=== PATIENT | female | born 1970 | race Caucasian/White ===

== ENCOUNTER → 2016-05-19 | Outpatient (CLI) | payer MEDICAID | LOC: FIMAGING 09:59 | DX: Z12.31 Encounter for screening mammogram for malignant neoplasm of breast (principal); Z80.3 Family history of malignant neoplasm of breast | CPT/HCPCS: G0202 ==

== ENCOUNTER → 2016-09-01 | Outpatient (CLI) | payer MEDICAID | LOC: FIMAGING 08:46 | PROVIDERS: ATTEND Internal Medicine | DX: R92.8 Other abnormal and inconclusive findings on diagnostic imaging of breast (principal) | CPT/HCPCS: G0206 ==

== ENCOUNTER 2016-09-17 09:35 | Emergency (ER) | payer MEDICAID ==
--- NOTE | 2016-09-17 09:48 | EDPHY ---
H & P HPI/ROS: CHIEF COMPLAINT: Two seizures this morning. HISTORY OF PRESENT ILLNESS: This patient is a 46 year old female with history of seizure disorder arriving via EMS from [place] following two seizures this morning. She states she has been vomiting for the last two weeks, 3-4 times daily, and describes her emesis as "coffee-ground". She reports she has lost about 15k pounds in the last month , and thinks she may have vomited up doses of her seizure medication (Keppra, 500mg tid). She endorses abdominal pain. She states she has a referral to GI with an appointment scheduled for October 07, 2016. She reports she was diagnosed with pneumonia recently by chest x-ray, and has been taking Levaquin. She describes pain on deep inspiration and subjective fever. Today, she remembers throwing up, and then being found by nursing staff following a seizure. Neither of this morning's seizures were witnessed. No shortness of breath, diarrhea, blood in her stool, or other associated symptoms. REVIEW OF SYSTEMS: A ten point review of systems was performed and is negative with the exception of the items mentioned in the HPI. - Medical/Surgical History PMH: 1. Seizure disorder diagnosed 2012 (Keppra) 2. Depression 3. Migraine headaches 4. Recurrent UTIs 5. Nephrolithiasis 6. Ulcers (Protonix) 7. Pneumonia Hx Asthma: No Hx Chronic Respiratory Disease: No Hx Diabetes: No Hx Cardiac Disease: No Hx Renal Disease: No Hx Cirrhosis: No Hx Alcoholism: No Hx HIV/AIDS: No Hx Splenectomy or Spleen Trauma: No Other PMH: epilepsy-2013; depression, gerd, migraines, gastric ulcer status post resection, anxiety, kidney stones, anemia;restless legs;S/P Norah;S/P Appy - Social History Smoking Status: Current every day smoker Drug Use: None Additional Social History: Living at [place] since December. - Physical Exam Exam: General Appearance: Alert. Vital signs reviewed. Blood pressure 91/67. Head: Normocephalic atraumatic. Eyes: Pupils equal and round, no conjunctival injection, no discharge. Anicteric. ENT, Mouth: Mucous membranes are moist, no oropharyngeal erythema or edema. No tongue injury. Neck: No lymphadenopathy, supple. Respiratory: Coarse wheezes. Cardiovascular: Regular rate and rhythm; no murmur, rub, or gallop. Gastrointestinal: Midepigastric tenderness. Abdomen is soft, no masses or organomegaly, bowel sounds normal. Skin: Warm and dry, no rashes on exposed skin, normal color. Back: Nontender to palpation over the thoracolumbar spine. No CVAT. Extremities: No long bone tenderness. Neurological: Alert and oriented. Moving all four extremities easily and equally. VIVKE. EOMI. Facial expressions symmetric. Tongue midline. Strength 5/5 in all major motor groups. Sensation intact to light touch over all 4 extremities. Psychiatric: Normal affect. Constitutional: Initial Vital Signs Temperature (C) 36.6 C 09/17/16 09:50 Heart Rate 80 09/17/16 09:50 Respiratory Rate 16 09/17/16 09:50 Blood Pressure 91/67 L 09/17/16 09:50 O2 Sat (%) 92 09/17/16 09:50 O2 Delivery Mode Room Air Allergies/Adverse Reactions: heparin Allergy (Verified 03/07/16 13:54) affects my platelets iodine Allergy (Verified 03/07/16 13:54) oral contrast Allergy (Uncoded 12/21/15 18:39) Home Medications: Medication Instructions Recorded Pregabalin [Lyrica 50mg (*)] 200 mg PO TID 12/14/15 QUEtiapine FUMARATE [Seroquel 300 mg PO TID 12/14/15 300mg (*)] rOPINIRole HCL [Requip 2mg (*)] 2 mg PO HS 12/14/15 levETIRAcetam [Keppra 500 mg (*)] 500 mg PO TID 12/16/15 ALPRAZolam [Xanax 1 MG (*)] 2 mg PO BID PRN 12/17/15 Acetaminophen/ASA/Caffeine 1 each PO DAILY PRN 12/17/15 [Excedrin Tablet (*)] Multivitamins [Multivitamin (*)] 1 each PO DAILY 12/17/15 traZODone [traZODONE 100MG (*)] 200 - 400 mg PO HS PRN 12/17/15 Acetaminophen [Tylenol 325mg (*)] 650 mg PO Q4HRS PRN #0 tab 01/02/16 Amoxicillin Trihydrate [Amoxil] 1,000 mg PO BID #11 cap 01/02/16 Clarithromycin [Biaxin (*)] 500 mg PO BID #0 tab 01/02/16 Dicyclomine [Bentyl 10 MG (*)] 10 mg PO BID #0 cap 01/02/16 Ibuprofen [Motrin (*)] 400 mg PO Q6HRS PRN #0 tab 01/02/16 Lidocaine 5% [Lidoderm 5% Patch 1 ea TD DAILY #0 patch 01/02/16 (*)] Magnesium Hydroxide [Milk of 30 ml PO DAILY PRN #0 udcup 01/02/16 Magnesia (*)] Pantoprazole Sodium [Protonix 40mg 40 mg PO BID #0 tab 01/02/16 (*)] Polyethylene Glycol 3350 [Miralax 17 gm PO BID #0 pkt 01/02/16 17 gm (*)] Polyethylene Glycol 3350 [Miralax 17 gm PO DAILY PRN #0 pkt 01/02/16 17 gm (*)] Promethazine HCl [Phenergan 25mg 6.25 mg PO Q6HRS PRN #0 tab 01/02/16 (*)] Sennosides/Docusate Sodium 1 - 2 tab PO BID #0 tab 01/02/16 [Senokot-S] guaiFENesin [Mucinex 600 MG (*)] 600 mg PO BID PRN #0 tab.er 01/02/16 Medical Decision Making - Diagnostics Imaging: I viewed and interpreted images myself ED Course/Re-evaluation: This patient is a 46 year old female presenting following two self reported seizures this morning, with two week history of daily nausea and vomiting. Physical exam reveals bilateral coarse wheezes and midepigastric tenderness. The patient has recently been treated for pneumonia with Levaquin, and has a reported history of chronic pneumonia. Plan for chest x-ray to assess pneumonia status. Plan for labs including CBC and BMP. Administered DuoNeb treatment and 12.5mg IV Phenergan for symptom relief. Reassessed patient. She is complaining of pain to her right low back. Plan to administer Lidocaine patch for symptom relief. She has been serially evaluated. Prior to discharge, at 12:40 p.m., she was re- evaluated. Her lungs are clear at this time. Chest x-ray does not show pneumonia or any other acute abnormality. She has not had seizure activity here in the emergency department. The IV that was administering her Keppra has infiltrated. She would like to return to [place] and feels that she can take her oral Keppra. Based upon history, it is not known to me whether not she actually had a seizure this morning. There was no witness. I do not find tongue injury or any other injury that might be related to seizure activity or falling. No laboratory abnormalities that would cause seizure. I feel that she can safely return to [place]. Differential Diagnosis: Seizure including but not limited to electrolyte abnormality, alcohol withdrawal , medication noncompliance, head injury, and breakthrough seizure. - Data Points Laboratory Results: Laboratory Results 09/17/16 10:35 09/17/16 10:35 Medications Given: Discontinued Medications Albuterol/Ipratropium (Duoneb) 3 ml IH EDNOW ONE Stop: 09/17/16 10:11 Last Admin: 09/17/16 10:36 Dose: 3 ml Levetiracetam 500 mg/ Sodium (Chloride) 105 mls @ 420 mls/hr IV EDNOW ONE Stop: 09/17/16 11:52 Last Admin: 09/17/16 12:47 Dose: Not Given Lidocaine (Lidoderm 5%) 1 ea TD DAILY CONCHIS Stop: 03/16/17 10:59 Last Admin: 09/17/16 11:22 Dose: 1 ea Promethazine HCl (Phenergan) 12.5 mg IVP EDNOW ONE Stop: 09/17/16 10:10 Last Admin: 09/17/16 10:39 Dose: 12.5 mg Promethazine HCl (Phenergan) 12.5 mg IVP ONCE ONE Stop: 09/17/16 12:07 Last Admin: 09/17/16 12:08 Dose: 12.5 mg Departure - Departure Disposition: Home, Routine, Self-Care Clinical Impression: Seizure disorder Condition: Good Instructions: Recurrent Seizures in Adults (ED) Additional Instructions: 1. Continue your current medications. 2. Keep your appointment with gastroenterology as scheduled. Referrals: HE KAM [Primary Care Provider] - As per Instructions Report Scribed for: Georgiana Almaraz Report Scribed by: Amy Shields Date of Report: 09/17/16 Time of Report: 09:52 Physician Review and Approval Statement: 09/17/16 09:48 Portions of this note were transcribed by the medical assistant per diem. I, Dr. Georgiana Almaraz, personally performed the history, physical exam, and medical decision- making; and confirmed the accuracy of the information in the transcribed note.
[2016-09-17 09:56] VITALS: TEMP 97.9
[2016-09-17] MEDS ORDERED: PROMETHAZINE HCL 25 MG/ML INJ IVP ONE ×2 (10:09→12:06)
[2016-09-17] MEDS ORDERED: IPRATROPIUM/ALBUTEROL 3 ML DEYVIAL IH ONE (10:10)
[2016-09-17 10:42] LABS: % IMMATURE GRANULYOCYTES 0.5 % (0.0-1.1); ABSOLUTE IMMATURE GRANULOCYTES 0.05 10^3/uL (0.00-0.10); ADD DIFF? NO; ADD MORPH? NO; ADD SCAN? NO; ATYPICAL LYMPHOCYTE FLAG 0 (0-99); FRAGMENT RBC FLAG 0 (0-99); HEMATOCRIT 38.7 % (38.0-47.0); HEMOGLOBIN 12.7 g/dL (12.6-16.3); LEFT SHIFT FLG 20 (0-99); LIPEMIA HEMOLYSIS FLAG 80 (0-99); MEAN CELL HEMOGLOBIN 29.5 pg (27.9-34.1); MEAN CELL HEMOGLOBIN CONCENTR. 32.8 g/dL (32.4-36.7); MEAN CELL VOLUME 89.8 fL (81.5-99.8); MEAN PLATELET VOLUME 10.8 fL (8.7-11.7); PLATELET CLUMPS FLAG 10 (0-99); PLATELET COUNT 286 10^3/uL (150-400); RED BLOOD CELL COUNT 4.31 10^6/uL (4.18-5.33); RED CELL DISTRIBUTION WIDTH 15.3 % (11.5-15.2)
[2016-09-17] MEDS ORDERED: LIDOCAINE 5% 1 EA PATCH TD SCH (11:00)
[2016-09-17 11:03] LABS: ANION GAP 11 mEq/L (8-16); CALCIUM 8.5 mg/dL (8.5-10.4); CARBON DIOXIDE 19 mEq/l (22-31); CHLORIDE 106 mEq/L (97-110); CREATININE 0.7 mg/dL (0.6-1.0); GLOMERULAR FILTRATION RATE > 60; GLUCOSE 82 mg/dL (70-100); POTASSIUM 4.1 mEq/L (3.5-5.2); SODIUM 136 mEq/L (134-144)
[2016-09-17] MEDS ORDERED: levETIRAcetam 500 MG in NS 100 ML IV ONE (11:38)
[2016-09-17] MEDS ORDERED: PROMETHAZINE HCL 25 MG/ML INJ ONE (12:07)
[2016-09-17 13:38] VITALS: BP 98/60; PULSE 76; RESP 18; O2SAT 91
[2016-09-17] MEDS ORDERED: PATCH REMOVAL 1 EA PATCH TD SCH (21:00)
== END 2016-09-17 13:37 | disposition home or self-care (01) ==
LOC: EDUNIT#
DX: G40.909 Epilepsy, unspecified, not intractable, without status epilepticus (principal); F17.200 Nicotine dependence, unspecified, uncomplicated
CPT/HCPCS: 96374; J1953; J2550

== ENCOUNTER → 2016-11-18 | Outpatient (CLI) | payer MEDICAID | LOC: FIMAGING 07:48 | PROVIDERS: ATTEND Internal Medicine | DX: R11.2 Nausea with vomiting, unspecified (principal); K30 Functional dyspepsia | CPT/HCPCS: 78264; A9541 ==

== ENCOUNTER → 2016-11-26 | Outpatient (CLI) | payer MEDICAID | LOC: FIMAGING 11-15 08:26 | PROVIDERS: ATTEND Internal Medicine | DX: K22.4 Dyskinesia of esophagus (principal); K59.00 Constipation, unspecified; Z98.0 Intestinal bypass and anastomosis status ==

== ENCOUNTER 2016-12-04 00:22 | Emergency (ER) | payer MEDICAID ==
--- NOTE | 2016-12-04 00:43 | EDPHY ---
H & P HPI/ROS: HPI The patient presents with an episode of ALOC which occurred just prior to arrival, she is brought in by ambulance from [place] where she resides. She had an unwitnessed fall while outside smoking marijuana. When found by nursing staff she was lying on the ground and minimally responsive. The staff believe she has a syncopal episode. Upon arrival of paramedics blood pressure was 80 systolic, patient was alert and oriented x4. To me, she complains of neck pain which is moderate in severity overlying her cervical spine. She does not have a headache, nausea, vomiting, dizziness. She said her blood pressure is normally in the 90 systolic. REVIEW OF SYSTEMS Constitutional: No fever, no chills. Eyes: No discharge. ENT: No sore throat. Cardiovascular: No chest pain, no palpitations. Respiratory: No cough, no shortness of breath. Gastrointestinal: No abdominal pain, no vomiting. Genitourinary: No hematuria. Musculoskeletal: No back pain. Skin: No rashes. Neurological: No headache. PMHx: Epilepsy since 2012, migraines, anxiety, fibromyalgia Soc Hx: Resides at [place] PHYSICAL General Appearance: Alert, no distress Eyes: Pupils equal and round no pallor or injection ENT, Mouth: Mucous membranes moist Neck: There is posterior midline C-spine tenderness at C6 and C7 Respiratory: There are no retractions, lungs are clear to auscultation Cardiovascular: Regular rate and rhythm Gastrointestinal: Abdomen is soft and non-tender, no masses, bowel sounds normal Neurological: A&O, moves all extremities Skin: Warm and dry, no rashes Musculoskeletal: Neck is supple non tender Extremities: symmetrical, full range of motion Psychiatric: Patient is oriented X 3, there is no agitation Source: Patient, EMS Exam Limitations: No limitations - Medical/Surgical History Hx Asthma: No Hx Chronic Respiratory Disease: No Hx Diabetes: No Hx Cardiac Disease: No Hx Renal Disease: No Hx Cirrhosis: No Hx Alcoholism: No Hx HIV/AIDS: No Hx Splenectomy or Spleen Trauma: No Other PMH: epilepsy-2012; depression, gerd, migraines, gastric ulcer status post resection, anxiety, kidney stones, anemia;restless legs;S/P Norah;S/P Appy - Social History Smoking Status: Current every day smoker Constitutional: Initial Vital Signs Temperature (C) 36.6 C 12/04/16 00:25 Heart Rate 76 12/04/16 00:25 Respiratory Rate 18 12/04/16 00:25 Blood Pressure 90/68 L 12/04/16 00:25 O2 Sat (%) 91 L 12/04/16 00:25 O2 Delivery Mode Room Air Allergies/Adverse Reactions: heparin Allergy (Verified 12/04/16 00:39) affects my platelets iodine Allergy (Verified 12/04/16 00:39) oral contrast Allergy (Uncoded 12/04/16 00:39) Home Medications: Medication Instructions Recorded Pregabalin [Lyrica 50mg (*)] 200 mg PO TID 12/14/15 QUEtiapine FUMARATE [Seroquel 300 mg PO TID 12/14/15 300mg (*)] rOPINIRole HCL [Requip 2mg (*)] 2 mg PO HS 12/14/15 levETIRAcetam [Keppra 500 mg (*)] 500 mg PO TID 12/16/15 ALPRAZolam [Xanax 1 MG (*)] 2 mg PO BID PRN 12/17/15 Acetaminophen/ASA/Caffeine 1 each PO DAILY PRN 12/17/15 [Excedrin Tablet (*)] Multivitamins [Multivitamin (*)] 1 each PO DAILY 12/17/15 traZODone [traZODONE 100MG (*)] 200 - 400 mg PO HS PRN 12/17/15 Acetaminophen [Tylenol 325mg (*)] 650 mg PO Q4HRS PRN #0 tab 01/02/16 Amoxicillin Trihydrate [Amoxil] 1,000 mg PO BID #11 cap 01/02/16 Clarithromycin [Biaxin (*)] 500 mg PO BID #0 tab 01/02/16 Dicyclomine [Bentyl 10 MG (*)] 10 mg PO BID #0 cap 01/02/16 Ibuprofen [Motrin (*)] 400 mg PO Q6HRS PRN #0 tab 01/02/16 Lidocaine 5% [Lidoderm 5% Patch 1 ea TD DAILY #0 patch 01/02/16 (*)] Magnesium Hydroxide [Milk of 30 ml PO DAILY PRN #0 udcup 01/02/16 Magnesia (*)] Pantoprazole Sodium [Protonix 40mg 40 mg PO BID #0 tab 01/02/16 (*)] Polyethylene Glycol 3350 [Miralax 17 gm PO BID #0 pkt 01/02/16 17 gm (*)] Polyethylene Glycol 3350 [Miralax 17 gm PO DAILY PRN #0 pkt 01/02/16 17 gm (*)] Promethazine HCl [Phenergan 25mg 6.25 mg PO Q6HRS PRN #0 tab 01/02/16 (*)] Sennosides/Docusate Sodium 1 - 2 tab PO BID #0 tab 01/02/16 [Senokot-S] guaiFENesin [Mucinex 600 MG (*)] 600 mg PO BID PRN #0 tab.er 01/02/16 Marijuana 12/04/16 Medical Decision Making - Diagnostics EKG Interpretation: EKG: Complete interpretation has been separately recorded in the [facility] archive. Summary impression: Normal sinus rhythm Imaging Results: CT cervical spine is unremarkable, discussed with Dr. Valle of Radiology. Differential Diagnosis: This is a 46-year-old female with multiple medical problems who presents via ambulance from [place] where she usually resides. She had what sounds like a syncopal episode which was unwitnessed, afterwards she was somewhat disoriented. Initial blood pressure was low. She is now feeling better. Differential diagnosis includes syncope, cervical fracture given her posterior midline neck tenderness, hypotension, electrolyte disturbance. In the emergency department, patient was given IV fluids and Phenergan because she was feeling nauseated. Her blood pressure improved and was in the 90s systolic for the rest of her stay. She had a CT scan of her neck which did not show any fracture. I removed her C-collar. Labs were unremarkable. She was able to walk without difficulty though did feel somewhat nauseated so received an additional dose of Phenergan. She will be discharged back to [place]. I believe she most likely had syncope related to marijuana use and slightly low blood pressure. - Data Points Laboratory Results: Laboratory Results 12/04/16 01:30 12/04/16 01:30 12/04/16 12/04/16 01:30 01:30 WBC 10.67 10^3/uL H 10^3/uL (3.80-9.50) RBC 4.51 10^6/uL 10^6/uL (4.18-5.33) Hgb 13.4 g/dL g/dL (12.6-16.3) Hct 40.8 % % (38.0-47.0) MCV 90.5 fL fL (81.5-99.8) MCH 29.7 pg pg (27.9-34.1) MCHC 32.8 g/dL g/dL (32.4-36.7) RDW 15.8 % H % (11.5-15.2) Plt Count 262 10^3/uL 10^3/uL (150-400) MPV 11.6 fL fL (8.7-11.7) Neut % (Auto) 83.6 % H % (39.3-74.2) Lymph % (Auto) 9.9 % L % (15.0-45.0) [place] % (Auto) 5.0 % % (4.5-13.0) Eos % (Auto) 0.7 % % (0.6-7.6) Baso % (Auto) 0.3 % % (0.3-1.7) Nucleat RBC Rel Count 0.0 % % (0.0-0.2) Absolute Neuts (auto) 8.92 10^3/uL H 10^3/uL (1.70-6.50) Absolute Lymphs (auto) 1.06 10^3/uL 10^3/uL (1.00-3.00) Absolute Monos (auto) 0.53 10^3/uL 10^3/uL (0.30-0.80) Absolute Eos (auto) 0.08 10^3/uL 10^3/uL (0.03-0.40) Absolute Basos (auto) 0.03 10^3/uL 10^3/uL (0.02-0.10) Absolute Nucleated RBC 0.00 10^3/uL 10^3/uL (0-0.01) Immature Gran % 0.5 % % (0.0-1.1) Immature Gran # 0.05 10^3/uL 10^3/uL (0.00-0.10) Sodium 138 mEq/L mEq/L (134-144) Potassium 4.3 mEq/L mEq/L (3.5-5.2) Chloride 107 mEq/L mEq/L (97-110) Carbon Dioxide 21 mEq/l L mEq/l (22-31) Anion Gap 10 mEq/L mEq/L (8-16) BUN 14 mg/dL mg/dL (7-23) Creatinine 0.8 mg/dL mg/dL (0.6-1.0) Estimated GFR > 60 Glucose 76 mg/dL mg/dL (70-100) Calcium 8.8 mg/dL mg/dL (8.5-10.4) Total Bilirubin 0.5 mg/dL mg/dL (0.1-1.4) AST 29 IU/L IU/L (14-46) ALT 37 IU/L IU/L (9-52) Alkaline Phosphatase 141 IU/L H IU/L (38-126) Total Protein 6.6 g/dL g/dL (6.3-8.2) Albumin 3.0 g/dL L g/dL (3.5-5.0) Medications Given: Discontinued Medications Sodium Chloride (Ns) 1,000 mls @ 0 mls/hr IV EDNOW ONE; Wide Open PRN Reason: Protocol Stop: 12/04/16 01:35 Last Admin: 12/04/16 01:50 Dose: 1,000 mls Promethazine HCl (Phenergan) 12.5 mg IVP EDNOW ONE Stop: 12/04/16 01:35 Last Admin: 12/04/16 01:51 Dose: 12.5 mg Departure - Departure Disposition: Home, Routine, Self-Care Clinical Impression: Neck pain Syncope Qualifiers: Syncope type: unspecified Qualified Code(s): R55 - Syncope and collapse Fall Qualifiers: Encounter type: initial encounter Qualified Code(s): W19.XXXA - Unspecified fall, initial encounter Condition: Good Instructions: Syncope (ED) Additional Instructions: Your blood pressure was slightly low today and this could have been responsible for your fainting. Please make sure to drink plenty of fluids. When you get out of bed please sit on the edge of the bed for a minute or 2 before standing. Try to avoid smoking marijuana as this could be contributing to her symptoms. Referrals: STEVE ROMERO [Primary Care Provider] - As per Instructions
[2016-12-04] MEDS ORDERED: NS 1,000 ML IV ONE (01:34)
[2016-12-04] MEDS ORDERED: PROMETHAZINE HCL 25 MG/ML INJ IVP ONE ×2 (01:34→04:20)
--- NOTE | 2016-12-04 01:37 | CPEKG ---
Heart Rate: 70 RR Interval: 857 P-R Interval: 184 QRSD Interval: 102 QT Interval: 388 QTC Interval: 419 P [place]: 70 QRS [place]: 40 T Wave [place]: 54 EKG Severity - OTHERWISE NORMAL ECG - EKG Impression: SINUS RHYTHM EKG Impression: LOW VOLTAGE IN FRONTAL LEADS Electronically Signed By: Susana Tatum 04-Dec-2016 08:03:05
[2016-12-04] MEDS ORDERED: NS 50 ML BAG IV ONE (01:38)
[2016-12-04 01:42] LABS: % IMMATURE GRANULYOCYTES 0.5 % (0.0-1.1); ABSOLUTE IMMATURE GRANULOCYTES 0.05 10^3/uL (0.00-0.10); ADD DIFF? NO; ADD MORPH? NO; ADD SCAN? NO; ATYPICAL LYMPHOCYTE FLAG 10 (0-99); FRAGMENT RBC FLAG 0 (0-99); HEMATOCRIT 40.8 % (38.0-47.0); HEMOGLOBIN 13.4 g/dL (12.6-16.3); LEFT SHIFT FLG 10 (0-99); LIPEMIA HEMOLYSIS FLAG 80 (0-99); MEAN CELL HEMOGLOBIN 29.7 pg (27.9-34.1); MEAN CELL HEMOGLOBIN CONCENTR. 32.8 g/dL (32.4-36.7); MEAN CELL VOLUME 90.5 fL (81.5-99.8); MEAN PLATELET VOLUME 11.6 fL (8.7-11.7); PLATELET CLUMPS FLAG 10 (0-99); PLATELET COUNT 262 10^3/uL (150-400); RED BLOOD CELL COUNT 4.51 10^6/uL (4.18-5.33); RED CELL DISTRIBUTION WIDTH 15.8 % (11.5-15.2)
[2016-12-04 01:47] LABS: ALANINE AMINOTRANSFERASE 37 IU/L (9-52); ALKALINE PHOSPHATASE 141 IU/L (38-126); ANION GAP 10 mEq/L (8-16); ASPARTATE AMINOTRANSFERASE 29 IU/L (14-46); BILIRUBIN,TOTAL 0.5 mg/dL (0.1-1.4); CALCIUM 8.8 mg/dL (8.5-10.4); CARBON DIOXIDE 21 mEq/l (22-31); CHLORIDE 107 mEq/L (97-110); CREATININE 0.8 mg/dL (0.6-1.0); GLOMERULAR FILTRATION RATE > 60; GLUCOSE 76 mg/dL (70-100); POTASSIUM 4.3 mEq/L (3.5-5.2); SODIUM 138 mEq/L (134-144); TOTAL PROTEIN 6.6 g/dL (6.3-8.2)
[2016-12-04 05:09] VITALS: BP 91/58; PULSE 78; RESP 20; TEMP 98.2; O2SAT 97
== END 2016-12-04 05:08 | disposition home or self-care (01) ==
LOC: EDUNIT#
DX: S19.9XXA Unspecified injury of neck, initial encounter (principal); R55 Syncope and collapse; E86.9 Volume depletion, unspecified; W19.XXXA Unspecified fall, initial encounter; F17.200 Nicotine dependence, unspecified, uncomplicated
CPT/HCPCS: 96374; J2550

== ENCOUNTER → 2017-01-13 | Outpatient (CLI) | payer MEDICAID ==
[~2017-01-13] MED LIST: DIAZEPAM 5 MG TAB ONE; GADOBUTROL 10 ML VIAL IVP ONE
== END ==
LOC: FIMAGING 07:49
PROVIDERS: ATTEND Psychiatry & Neurology Neurology
DX: G40.909 Epilepsy, unspecified, not intractable, without status epilepticus (principal)
CPT/HCPCS: A9585

== ENCOUNTER → 2017-02-23 | Outpatient (CLI) | payer MEDICAID ==
--- NOTE | 2017-02-23 12:59 | CPEEG ---
[f rep st] ELECTROENCEPHALOGRAM DATE OF STUDY: 02/23/2017 INTERPRETATION: This EEG contains a mild degree of diffuse nonspecific slowing. These findings woul d be consistent with a mild diffuse disturbance of cerebral function. There were no epileptogenic ab normalities present in the awake or sleep recordings. REPORT: This EEG contains 8 Hz alpha activity to the posterior head regions. There was a mild degre e of diffuse nonspecific slowing present of the background activity, mainly composed of low amplitude theta frequency activity. There was no abnormal activation at rest, during photic stimulation or hy perventilation. The patient became drowsy and fell asleep during the study. There was no abnormal a ctivation during drowsiness, sleep, or during times of arousal. /[id number]/MODL
== END ==
LOC: FCPNEURO 02-21 09:51
PROVIDERS: ATTEND Psychiatry & Neurology Neurology
DX: G40.909 Epilepsy, unspecified, not intractable, without status epilepticus (principal)

== ENCOUNTER 2017-03-25 13:23 | Inpatient (IN) | payer MEDICAID ==
[2017-03-25] MEDS ORDERED: NS 1,000 ML IV ONE (13:48)
--- NOTE | 2017-03-25 13:51 | EDPHY ---
H & P Stated Complaint: from [facility], concerned re weight loss Time Seen by Provider: 03/25/17 13:34 HPI/ROS: CHIEF COMPLAINT: Failure to thrive HISTORY OF PRESENT ILLNESS: The patient is a 46-year-old female with a history of marijuana abuse, traumatic brain injury, epilepsy, depression, migraines, anxiety and restless legs who is sent from [place] for failure to thrive, weight loss and consideration for a G-tube. I spoke with the nurse practitioner there who states that she has lost 10 lb over the last 2 weeks in her BMI is currently 15. The the patient tells me that she vomits whenever she eats anything. She does have a previous diagnosis of gastroparesis as well as abdominal surgery for history of ulcers. It sounds as though this has been going on for about a year. The patient states that she stopped smoking marijuana 2 days ago but continues to vomit whenever she eats. She has not had a fever. She denies abdominal pain. No distension. She is passing gas. snf staff and practitioners feel that the patient has an eating disorder but the patient adamantly denies this. REVIEW OF SYSTEMS: Constitutional: denies: chills, fever, recent illness, recent injury EENTM: denies: blurred vision, double vision, nose congestion Respiratory: denies: cough, shortness of breath Cardiac: denies: chest pain, irregular heart rate, lightheadedness, palpitations Gastrointestinal/Abdominal: See HPI Genitourinary: denies: dysuria, frequency, hematuria, pain Musculoskeletal: denies: joint pain, muscle pain Skin: denies: lesions, rash, jaundice, bruising Neurological: denies: headache, numbness, paresthesia, tingling, dizziness, weakness Hematologic/Lymphatic: denies: blood clots, easy bleeding, easy bruising Immunologic/allergic: denies: HIV/AIDS, transplant EXAM: GENERAL: Extremely thin HEAD: Atraumatic, normocephalic. EYES: sunken, Pupils equal round and reactive to light, extraocular movements intact, sclera anicteric, conjunctiva are normal. ENT: TMs normal, nares patent, oropharynx clear without exudates. Moist mucous membranes. NECK: Normal range of motion, supple without lymphadenopathy or JVD. LUNGS: Breath sounds clear to auscultation bilaterally and equal. No wheezes rales or rhonchi. HEART: Regular rate and rhythm without murmurs, rubs or gallops. ABDOMEN: Scars in place, nontender, nondistended BACK: No CVA tenderness, no spinal tenderness, step-offs or deformities EXTREMITIES: Normal range of motion, no pitting or edema. No clubbing or cyanosis. NEUROLOGICAL: Cranial nerves II through XII grossly intact. Normal speech, normal gait. 5/5 strength, normal movement in all extremities, normal sensation PSYCH: Normal mood, normal affect. SKIN: Warm, dry, normal turgor, no visible rashes or lesions. Source: Patient Exam Limitations: No limitations - Personal History Current Tetanus/Diphtheria Vaccine: Unsure Current Tetanus Diphtheria and Acellular Pertussis (TDAP): Unsure - Medical/Surgical History Hx Asthma: No Hx Chronic Respiratory Disease: No Hx Diabetes: No Hx Cardiac Disease: No Hx Renal Disease: No Hx Cirrhosis: No Hx Alcoholism: No Hx HIV/AIDS: No Hx Splenectomy or Spleen Trauma: No Other PMH: epilepsy-2013; depression, gerd, migraines, gastric ulcer status post resection, anxiety, kidney stones, anemia;restless legs;S/P Norah;S/P Appy - Family History Significant Family History: No pertinent family hx - Social History Smoking Status: Current every day smoker Alcohol Use: Sober Drug Use: Marijuana Constitutional: Initial Vital Signs Temperature (C) 36.9 C 03/25/17 13:23 Heart Rate 96 03/25/17 13:23 Respiratory Rate 18 03/25/17 13:23 Blood Pressure 83/59 L 03/25/17 13:23 O2 Sat (%) 96 03/25/17 13:23 O2 Delivery Mode Room Air Allergies/Adverse Reactions: heparin Allergy (Verified 03/25/17 13:31) affects my platelets iodine Allergy (Verified 03/25/17 13:31) oral contrast Allergy (Uncoded 03/25/17 13:31) Home Medications: Medication Instructions Recorded ALPRAZolam [Xanax 1 MG (*)] 1 mg PO Q6H PRN 03/25/17 Depakote 03/25/17 Docusate Sodium [Colace 100 MG (*)] 100 mg PO BID 03/25/17 Multivitamins [Multivitamin (*)] 1 each PO DAILY 03/25/17 Pregabalin [Lyrica] 200 mg PO TID 03/25/17 QUEtiapine FUMARATE [Seroquel 300 mg PO TID 03/25/17 300mg (*)] Tiotropium Inhaler [Spiriva 90 mcg IH DAILY 03/25/17 Handihaler] levETIRAcetam [Keppra 500 mg (*)] 500 mg PO TID 03/25/17 rOPINIRole HCL [Requip 2mg (*)] 2 mg PO HS 03/25/17 Medical Decision Making ED Course/Re-evaluation: 2:25 p.m. I discussed the case with Dr. Cathy Zendejas who will admit to the medical service. The patient is slightly hypotensive however this is consistent with her previous admissions. She does not feel lightheaded or dizzy. No chest pain or shortness of breath. Differential Diagnosis: Partial list of the Differential diagnosis considered include but were not limited to; failure to thrive, eating disorder, starvation, cannabis hyperemesis, gastroparesis and although unlikely based on the history and physical exam, I also considered infection, electrolyte abnormality. - Data Points Laboratory Results: Laboratory Results 03/25/17 13:50 03/25/17 13:50 03/25/17 03/25/17 03/25/17 13:50 13:50 13:50 WBC 3.83 10^3/uL 10^3/uL (3.80-9.50) RBC 3.14 10^6/uL L 10^6/uL (4.18-5.33) Hgb 10.4 g/dL L g/dL (12.6-16.3) Hct 30.3 % L % (38.0-47.0) MCV 96.5 fL fL (81.5-99.8) MCH 33.1 pg pg (27.9-34.1) MCHC 34.3 g/dL g/dL (32.4-36.7) RDW 14.6 % % (11.5-15.2) Plt Count 290 10^3/uL 10^3/uL (150-400) MPV 9.8 fL fL (8.7-11.7) Neut % (Auto) 66.5 % % (39.3-74.2) Lymph % (Auto) 23.5 % % (15.0-45.0) Day % (Auto) 8.4 % % (4.5-13.0) Eos % (Auto) 0.5 % L % (0.6-7.6) Baso % (Auto) 0.3 % % (0.3-1.7) Nucleat RBC Rel Count 0.0 % % (0.0-0.2) Absolute Neuts (auto) 2.55 10^3/uL 10^3/uL (1.70-6.50) Absolute Lymphs (auto) 0.90 10^3/uL L 10^3/uL (1.00-3.00) Absolute Monos (auto) 0.32 10^3/uL 10^3/uL (0.30-0.80) Absolute Eos (auto) 0.02 10^3/uL L 10^3/uL (0.03-0.40) Absolute Basos (auto) 0.01 10^3/uL L 10^3/uL (0.02-0.10) Absolute Nucleated RBC 0.00 10^3/uL 10^3/uL (0-0.01) Immature Gran % 0.8 % % (0.0-1.1) Immature Gran # 0.03 10^3/uL 10^3/uL (0.00-0.10) Sodium 139 mEq/L mEq/L (134-144) Potassium 4.0 mEq/L mEq/L (3.5-5.2) Chloride 105 mEq/L mEq/L (97-110) Carbon Dioxide 24 mEq/l mEq/l (22-31) Anion Gap 10 mEq/L mEq/L (8-16) BUN 16 mg/dL mg/dL (7-23) Creatinine 0.6 mg/dL mg/dL (0.6-1.0) Estimated GFR > 60 Glucose 79 mg/dL mg/dL (70-100) Calcium 7.9 mg/dL L mg/dL (8.5-10.4) Total Bilirubin 0.1 mg/dL mg/dL (0.1-1.4) Conjugated Bilirubin 0.1 mg/dL mg/dL (0.0-0.5) Unconjugated Bilirubin 0.0 mg/dL mg/dL (0.0-1.1) AST 19 IU/L IU/L (14-46) ALT 30 IU/L IU/L (9-52) Alkaline Phosphatase 234 IU/L H IU/L (38-126) Total Protein 4.9 g/dL L g/dL (6.3-8.2) Albumin 2.2 g/dL L g/dL (3.5-5.0) Lipase 38 IU/L IU/L (23-300) Beta HCG, Qual NEGATIVE Medications Given: Discontinued Medications Sodium Chloride (Ns) 1,000 mls @ 0 mls/hr IV EDNOW ONE; Wide Open PRN Reason: Protocol Stop: 03/25/17 13:49 Last Admin: 03/25/17 13:55 Dose: 1,000 mls Promethazine HCl (Phenergan) 6.25 mg IVP ONCE ONE Stop: 03/25/17 14:11 Last Admin: 03/25/17 14:20 Dose: 6.25 mg Departure - Departure Disposition: [facility] Acute Clinical Impression: Failure to thrive in adult Condition: Fair
[2017-03-25 14:04] LABS: PLATELET COUNT 290 10^3/uL (150-400)
[2017-03-25] MEDS ORDERED: PROMETHAZINE HCL 25 MG/ML INJ IVP ONE (14:10)
[2017-03-25] MEDS ORDERED: ACETAMINOPHEN 325 MG TAB PO PRN (16:47)
[2017-03-25] MEDS ORDERED: KETOROLAC 30 MG/1 ML SDV IVP PRN (16:47)
[2017-03-25] MEDS: HYDROmorphONE/DILAUDID 1 MG/ML INJ IVP PRN ×3 (16:54→22:27)
[2017-03-25] MEDS ORDERED: SUCRALFATE 1 GM/10 ML UDCUP PO PRN (17:40)
[2017-03-25] MEDS ORDERED: DICYCLOMINE 10 MG CAP PO PRN (17:40)
[2017-03-25] MEDS: PROMETHAZINE HCL 25 MG/ML INJ IVP PRN (17:43)
[2017-03-25] MEDS: NS 1,000 ML IV SCH (17:46)
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
[2017-03-25] MEDS: ALPRAZolam 1 MG TAB PO PRN (17:51)
[2017-03-25] MEDS: oxyCODONE IR 5 MG TAB PO PRN (18:14)
[2017-03-25] MEDS ORDERED: BISACODYL 10 MG SUPP PR PRN (18:52)
[2017-03-25] MEDS ORDERED: LACTULOSE 20 GM/30 ML UDCUP PO PRN (18:52)
[2017-03-25] MEDS ORDERED: MAGNESIUM HYDROXIDE 30 ML UDCUP PO PRN (18:52)
[2017-03-25] MEDS ORDERED: POLYETHYLENE GLYCOL 3350 17 GM PKT PO PRN (18:52)
[2017-03-25] MEDS: levETIRAcetam 500 MG TAB PO SCH (20:15)
[2017-03-25] MEDS: SENNOSIDES/DOCUSATE SODIUM TAB PO SCH (20:15)
[2017-03-25] MEDS: PREGABALIN 100 MG CAP PO SCH (20:16)
[2017-03-25] MEDS: QUEtiapine FUMARATE 300 MG TAB PO SCH (20:16)
[2017-03-25] MEDS: ACETAMINOPHEN 325 MG TAB PO SCH (20:16)
[2017-03-25] MEDS: PANTOPRAZOLE SODIUM 40 MG TAB PO SCH (20:16)
[2017-03-25] MEDS: LUBIPROSTONE 24 MCG CAP PO SCH (20:54)
[2017-03-25] MEDS ORDERED: DOCUSATE SODIUM 100 MG CAP PO SCH (21:00)
[2017-03-26] MEDS: HYDROmorphONE/DILAUDID 1 MG/ML INJ IVP PRN (03:20)
[2017-03-26] MEDS: PROMETHAZINE HCL 25 MG/ML INJ IVP PRN ×3 (03:20→17:11)
[2017-03-26] MEDS: NS 1,000 ML IV SCH ×2 (03:22→13:49)
[2017-03-26] MEDS: ALPRAZolam 1 MG TAB PO PRN (06:12)
[2017-03-26] MEDS: oxyCODONE IR 5 MG TAB PO PRN ×4 (06:12→21:30)
[2017-03-26] MEDS: TIOTROPIUM INHALER 18 MCG/DOSE 5 DOSE/MDI IH SCH (09:37)
[2017-03-26] MEDS: SENNOSIDES/DOCUSATE SODIUM TAB PO SCH ×2 (09:59→21:31)
[2017-03-26] MEDS: DIVALPROEX NA 500 MG TAB PO SCH ×2 (10:00→17:15)
[2017-03-26] MEDS: DIVALPROEX NA 250 MG TAB PO SCH ×3 (10:00→17:14)
[2017-03-26] MEDS: ACETAMINOPHEN 325 MG TAB PO SCH ×3 (10:00→21:31)
[2017-03-26] MEDS: NICOTINE 21 MG/24 HR PATCH TD SCH (10:00)
[2017-03-26] MEDS: QUEtiapine FUMARATE 300 MG TAB PO SCH ×3 (10:00→21:30)
[2017-03-26] MEDS: PANTOPRAZOLE SODIUM 40 MG TAB PO SCH ×2 (10:01→21:31)
[2017-03-26] MEDS: PREGABALIN 100 MG CAP PO SCH ×3 (10:01→21:30)
[2017-03-26] MEDS: levETIRAcetam 500 MG TAB PO SCH ×3 (10:01→21:30)
[2017-03-26] MEDS: LUBIPROSTONE 24 MCG CAP PO SCH ×2 (10:02→21:30)
--- NOTE | 2017-03-26 11:30 | HOSPPROG ---
Hospitalist Progress Note Assessment/Plan: 46 YO female admitted with n/v, abd pain, and FTT CT Abd: chronic non obstructive Left Nephrolithiasis. No e/o of obstruction #Gastroparesis #N/V #FTT #Obstipation #Acute on Chronic Abd pain, unclear etiology, functional vs GERD vs other #Anemia #Tobacco dependance, on nicotine replacement #Hx of SZ d/o #Hx of Bipolar #Hx of Billroth II with Kaleb en Y #Hx of TBI Plan: -CLD and advance slowly -IV Erythromycin, she is not a candidate for Reglan given her hx of SZ d/o and medications. She has tried in the past w/o significant improvement but was taken off it due to the overall risk -Check nutrition panel, Mg -Telemetry, look of for QT prolongation -PPI BID, Carafate -Stool regimen -Await nutrition consult -If does not have more oral intake by tomorrow or if recommended by nutrition, will start TPN. -Ultimately she may need a feeding tube and this can be discussed further if she does not have improvement with the Erythromycin or bowel rest -PT/OT -Lovenox for DVT proph Subjective: long hx of abd pain and gastroparesis. still with some N/V. no bm. no cp or SOB Objective: Vital Signs Temp Pulse Resp BP Pulse Ox 36.5 C 73 14 77/55 L 90 L 03/26/17 08:00 03/26/17 08:00 03/26/17 08:00 03/26/17 08:00 03/26/17 08:00 Laboratory Results 03/26/17 04:18 03/25/17 03/26/17 03/27/17 05:59 05:59 05:59 Intake Total 1250 Output Total 300 Balance 950 - Physical Exam Constitutional: chronically ill appearing Eyes: PERRL, EOMI Ears, Nose, Mouth, Throat: moist mucous membranes, hearing normal Cardiovascular: regular rate and rhythym, No edema Respiratory: no respiratory distress Gastrointestinal: normoactive bowel sounds, soft, non-tender abdomen, No rebound , No distension Skin: warm Musculoskeletal: generalized weakness Neurologic: AAOx3 Psychiatric: interacting appropriately, not anxious, not encephalopathic Lymph, Heme, Immunologic: No petechiae ICD10 Worksheet Patient Problems: Problems Problem Status Onset Failure to thrive in adult Acute Bilateral pneumonia Acute Constipation Acute Hospital-acquired pneumonia Acute Hypoxia Acute Pneumonia Acute Seizure Acute Seizure disorder Acute Severe sepsis with septic shock Acute Urinary tract infection Acute Vomiting Acute
--- NOTE | 2017-03-26 12:43 | PDMN ---
Medical Necessity Medical necessity: C/M review: est. > 2 MN LOS for eval and TX of acute and persistent abdominal pain of unclear etiology, nausea, vomiting, failure to thrive, anemia, gastroparesis, obstipation, requiring planned Nutrition consult , if no more oral intake by 03/27/2017, planned TPN initiation, ongoing IV Erythromycin, IV Dilaudid, IV fluids, cardiac monitoring, acute inpt PT/OT, comorbid chronic abdominal pain, tobacco dependence on nicotine replacement, history of seizure disorder, bipolar disorder, biliroth II with Kaleb en Y, traumatic brain injury per 03/26/2017 Hospitalist progress note.
[2017-03-26] MEDS: ONDANSETRON 4 MG/2 ML VIAL IVP PRN (13:56)
[2017-03-26] MEDS: NS IV SCH ×2 (14:55→22:22)
[2017-03-26] MEDS: ERYTHROMYCIN LACTOBIONATE IV SCH ×2 (14:55→22:22)
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
[2017-03-27] MEDS: NS IV SCH ×3 (05:16→21:14)
[2017-03-27] MEDS: ERYTHROMYCIN LACTOBIONATE IV SCH ×3 (05:16→21:14)
[2017-03-27] MEDS: PROMETHAZINE HCL 25 MG/ML INJ IVP PRN ×3 (05:16→21:14)
[2017-03-27] MEDS: ALPRAZolam 1 MG TAB PO PRN ×3 (05:16→21:14)
[2017-03-27] MEDS: NS 1,000 ML IV SCH (05:22)
[2017-03-27] MEDS: DIVALPROEX NA 250 MG TAB PO SCH ×3 (07:36→17:35)
[2017-03-27] MEDS: DIVALPROEX NA 500 MG TAB PO SCH ×2 (07:36→17:35)
[2017-03-27] MEDS: ENOXAPARIN 40 MG/0.4 ML SYR SC SCH (09:12)
[2017-03-27] MEDS: PREGABALIN 100 MG CAP PO SCH ×3 (09:12→21:05)
[2017-03-27] MEDS: NICOTINE 21 MG/24 HR PATCH TD SCH (09:13)
[2017-03-27] MEDS: levETIRAcetam 500 MG TAB PO SCH ×3 (09:13→21:05)
[2017-03-27] MEDS: SENNOSIDES/DOCUSATE SODIUM TAB PO SCH ×2 (09:13→21:04)
[2017-03-27] MEDS: ACETAMINOPHEN 325 MG TAB PO SCH ×3 (09:13→21:04)
[2017-03-27] MEDS: QUEtiapine FUMARATE 300 MG TAB PO SCH ×3 (09:13→21:05)
[2017-03-27] MEDS: oxyCODONE IR 5 MG TAB PO PRN ×4 (09:14→23:06)
[2017-03-27] MEDS: LUBIPROSTONE 24 MCG CAP PO SCH ×2 (09:14→21:33)
[2017-03-27] MEDS: PANTOPRAZOLE SODIUM 40 MG TAB PO SCH ×2 (09:14→21:05)
[2017-03-27] MEDS: TIOTROPIUM INHALER 18 MCG/DOSE 5 DOSE/MDI IH SCH (09:37)
[2017-03-27] MEDS: ONDANSETRON 4 MG/2 ML VIAL IVP PRN (10:31)
[2017-03-27] MEDS ORDERED: ALTEPLASE 2 MG VIAL IVP PRN (11:09)
[2017-03-27] MEDS ORDERED: D10W 1,000 ML IV PRN (11:11)
--- NOTE | 2017-03-27 11:19 | HOSPPROG ---
Hospitalist Progress Note Assessment/Plan: 46 YO female admitted with n/v, abd pain, and FTT. CT Abd: chronic non obstructive Left Nephrolithiasis. No e/o of obstruction She has had an extensive w/u and there have not been any e/o malignancy She has seen Dr. Wilkinson with GI She says that she does not eat because she has severe nausea and abd pain #Gastroparesis #N/V #FTT #SPCMN, over 40 lb weight loss over a years #Obstipation #Acute on Chronic Abd pain, unclear etiology, functional vs GERD vs other #Anemia #Tobacco dependance, on nicotine replacement #Hx of SZ d/o #Hx of Bipolar #Hx of Billroth II with Kaleb en Y #Hx of TBI Plan: -Cont current diet, advance slowly -I discussed with her PCP Dr. Kerns [phone]. He favors feeding tube placement if we are unable to be successful in getting her to eat -Dietary consult is pending -I will start TPN -GI to see today. I will cont IV Erythromycin for now. She is not a candidate for Reglan given her hx of SZ d/o and medications. She has tried in the past w/ o significant improvement but was taken off it due to the overall risk -Check nutrition panel, Mg -Telemetry, look of for QT prolongation -PPI BID, Carafate -Stool regimen -Place PICC -If does not have more oral intake by tomorrow or if recommended by nutrition, will start TPN. -Ultimately she may need a feeding tube and this can be discussed further if she does not have improvement with the Erythromycin or bowel rest -Consider psych consult -PT/OT -Lovenox for DVT proph Subjective: has advance diet but still with poor oral intake. was not able to obtain labs this morning. Still with nausea. No abd pain. Objective: Vital Signs Temp Pulse Resp BP Pulse Ox 36.7 C 75 16 83/58 L 85 L 03/27/17 07:08 03/27/17 07:43 03/27/17 07:08 03/27/17 07:43 03/27/17 10:15 03/26/17 03/27/17 03/28/17 05:59 05:59 05:59 Intake Total 700 Output Total 2000 Balance -1300 - Physical Exam Constitutional: no apparent distress Eyes: PERRL, EOMI Ears, Nose, Mouth, Throat: moist mucous membranes, hearing normal Cardiovascular: regular rate and rhythym, no murmur, rub, or gallop Respiratory: no respiratory distress, no rales or rhonchi Gastrointestinal: normoactive bowel sounds, soft, non-tender abdomen Genitourinary: no bladder fullness Skin: warm Neurologic: AAOx3 Psychiatric: interacting appropriately, not anxious, not encephalopathic Lymph, Heme, Immunologic: No petechiae ICD10 Worksheet Patient Problems: Problems Problem Status Onset Failure to thrive in adult Acute Bilateral pneumonia Acute Constipation Acute Hospital-acquired pneumonia Acute Hypoxia Acute Pneumonia Acute Seizure Acute Seizure disorder Acute Severe sepsis with septic shock Acute Urinary tract infection Acute Vomiting Acute
--- NOTE | 2017-03-27 20:14 | GCON ---
[f rep st] CONSULTATION GASTROENTEROLOGY CONSULTATION DATE OF CONSULTATION: 03/27/2017 REASON FOR CONSULTATION: Chronic abdominal pain, nausea, and vomiting with failure to thrive and caryn ght loss. HISTORY OF PRESENT ILLNESS: Rosalba is a 46-year-old female, well known to our practice, who has had extensive GI workup in the past for complaints of chronic epigastric abdominal pain, nausea, vomiting , and weight loss. I was asked to see her by Dr. Sloan today for further GI evaluation due to con tinued nausea, vomiting, weight loss. The patient is a resident of [facility] and was a dmitted with recurrent nausea and vomiting and inability to maintain her caloric needs with a resulta nt 10-pound weight loss over the last 2 weeks. She has a BMI of 15. She does smoke marijuana daily. She stopped 2 days ago. She has had nausea and vomiting whether or not she takes marijuana. Her [facility] staff does believe that she has an ongoing eating disorder. She also complains of some chroni c right flank pain over her right groin, associated with vaginal pain and does have chronic constipat ion with a bowel movement every 2 or 3 days. MEDICATIONS: Prior to admission included Depakote daily, Lyrica 200 mg p.o. 3 times daily, Seroquel 300 mg p.o. 3 times daily, Spiriva inhaler 50 mcg inhaled daily, Keppra 500 mg p.o. 3 times daily, Re quip 2 mg p.o. at bedtime, Colace 100 mg p.o. twice daily, and Xanax 1 mg p.o. q.6 hours p.r.n. anxie ty. ALLERGIES: Heparin and iodine. PAST MEDICAL HISTORY: Significant for seizure disorder first presenting in November of 2015. Histo ry of traumatic brain injury. History of peptic ulcer disease with status post Billroth II and Kaleb- en-Y gastrojejunostomy. Bipolar affective disorder. Well documented gastroparesis. History of Nina cobacter pylori gastritis with documented clearance and history of renal calculi. The patient has posey d extensive GI evaluation through our practice with Dr. Wilkinson including esophagogastroduodenoscopy in December of 2015, which showed gastritis and was negative for Helicobacter pylori, but a large amount of retained food particles in the stomach. She did have an abdominal ultrasound at that time that sh owed mild dilation of the common bile duct and extrahepatic biliary tree. She was most recently eval uated by us in November of 2016 with EGD which showed mild distal gastritis and distal esophagitis w ith biopsies negative for Helicobacter pylori and negative for celiac disease. Gastric emptying stud y had shown severe delayed gastric emptying of greater than 240 minute T one-half with normal being l ess than 90 minutes. Upper GI with small-bowel follow-through in November of 2016 showed mild esoph ageal dysmotility and reflux. Billroth II gastrojejunostomy with Kaleb-en-Y gastrojejunostomy and pro mpt emptying into the small bowel with only minimal mucosal edema noted in the jejunum without disten tion. The patient was last seen in the office by Dr. Wilkinson on 01/17/2017, at which time he felt her a bdominal pain and nausea and vomiting were functional with an overlay of gastroparesis. She did have a history of transient abnormal liver function tests, though these normalized in January of last ye ar. SOCIAL HISTORY: She does smoke marijuana daily, as well as smoke tobacco. She does not drink alcoho l. She has been a long-term resident at [facility] in their long-term care unit. FAMILY HISTORY: Negative for GI malignancies or peptic ulcer disease. REVIEW OF SYSTEMS: Other than complaints of fatigue, nausea, vomiting, regurgitation, epigastric abd ominal pain, and right flank pain is negative for a comprehensive review of systems. PHYSICAL EXAMINATION: VITAL SIGNS: On my examination today, temperature is 36.6 Celsius, pulse 63 r egular, blood pressure 78/56, respiratory rate 16, O2 saturation 93% on room air. GENERAL: A frail- appearing female looking cachectic. INTEGUMENT: Decreased skin turgor. No rash. HEENT: Head atra umatic, normocephalic. Pupils are equal, round, and reactive to light. EOM intact. Sclerae are non icteric. Nares are patent. Mucous membranes are moist. Dentition is fair. NECK: Supple. Trachea is midline. LYMPHATICS: Showed no cervical or axillary adenopathy. PULMONARY: Lungs are clear to percussion and auscultation. CARDIOVASCULAR: Regular rate. Normal S1, S2 without murmur. Periphe ral pulses are strong bilaterally. No pedal edema. GASTROINTESTINAL: Abdomen supple. Positive porfirio l sounds. No liver or spleen tip palpable. No masses or tenderness noted. No rebound noted. There is a well-healed midline surgical scar noted. EXTREMITIES: Without deformity. NEUROLOGIC: The dalila linda is alert and oriented x3. There are no focal neurologic deficits. LABORATORY DATA: Admission hemoglobin showed white count 3.83, hemoglobin 10.4, hematocrit 30.3, MCV 96.5, MCHC 34.3, RDW 14.6, platelets 290,000. Electrolytes are normal. BUN 12, creatinine 0.5. LF Ts are normal with the exception of alkaline phosphatase elevated at 234. Albumin is low at 2.2. Li pase is 38. Beta HCG is negative. TSH 3.11. Urinalysis is normal. IMAGING STUDIES: Abdominal pelvic CT scan on admission on 03/25/2017 revealed obstipation. No evide nce of small bowel obstruction or perforation. Chronic nonobstructive left nephrolithiasis. Mild st able intra and extrahepatic biliary dilatation with common bile duct measuring approximately 1 cm wit hout evidence of choledocholithiasis. These findings are stable from December 2015. The gallbladder surgically absent with surgical clips in the gallbladder fossa. IMPRESSION: 1. Chronic nausea and vomiting with slight weight loss, likely secondary to a combination of chronic gastroparesis,as well as eating disorder. There could be a contributing factor of cyclical vomiting syndrome from overuse of marijuana. 2. Weight loss and malnutrition secondary to #1. 3. Epigastric abdominal pain chronically of unclear etiology. 4. Bipolar affective disorder. 5. Irritable bowel syndrome, constipation predominant. 6. Billroth II gastrojejunostomy with gastroparesis. 7. Seizure disorder. 8. Asymptomatic nephrolithiasis. RECOMMENDATIONS: 1. Diet as tolerated, mechanical soft, gastroparesis diet. 2. Continue with erythromycin intravenously every 8 hours, albeit, doubt this is going to have a sig nificant improvement in her symptoms. 3. Patient would have a relative contraindication of use of Reglan due to her seizure disorder. 4. Would avoid narcotics if at all possible, as this will exacerbate gastroparesis. 5. Agree with oral Protonix 40 mg p.o. twice daily. 6. Agree with MiraLAX for treatment of constipation. 7. N.p.o. after midnight. 8. Consider further evaluation with esophagogastroduodenoscopy and possible PEG tube placement with jejunal feeding attachment for chronic enteral feedings, as this patient's feeding difficulties and e ating disorder has been chronic for greater than 2 years' duration and not likely to improve on its o wn. /[id number]/MODL
[2017-03-28] MEDS: ONDANSETRON 4 MG/2 ML VIAL IVP PRN ×2 (01:50→10:03)
[2017-03-28] MEDS: ALPRAZolam 1 MG TAB PO PRN ×3 (03:16→19:29)
[2017-03-28] MEDS: PROMETHAZINE HCL 25 MG/ML INJ IVP PRN (03:16)
[2017-03-28 03:48] LABS: PLATELET COUNT 234 10^3/uL (150-400)
[2017-03-28 04:01] LABS: INR 1.01 (0.83-1.16); PROTIME(PATIENT) 13.5 SEC (12.0-15.0)
[2017-03-28] MEDS: NS IV SCH (05:37)
[2017-03-28] MEDS: ERYTHROMYCIN LACTOBIONATE IV SCH (05:37)
[2017-03-28] MEDS: oxyCODONE IR 5 MG TAB PO PRN ×4 (05:43→21:23)
[2017-03-28] MEDS: DIVALPROEX NA 500 MG TAB PO SCH ×2 (07:29→17:50)
[2017-03-28] MEDS: DIVALPROEX NA 250 MG TAB PO SCH ×3 (07:29→17:50)
[2017-03-28] MEDS: SENNOSIDES/DOCUSATE SODIUM TAB PO SCH ×2 (07:29→21:23)
[2017-03-28] MEDS: TIOTROPIUM INHALER 18 MCG/DOSE 5 DOSE/MDI IH SCH (09:18)
[2017-03-28] MEDS: PREGABALIN 100 MG CAP PO SCH ×3 (09:46→21:23)
[2017-03-28] MEDS: NICOTINE 21 MG/24 HR PATCH TD SCH (09:46)
[2017-03-28] MEDS: QUEtiapine FUMARATE 300 MG TAB PO SCH ×3 (09:47→21:22)
[2017-03-28] MEDS: levETIRAcetam 500 MG TAB PO SCH ×3 (09:47→21:23)
[2017-03-28] MEDS: PANTOPRAZOLE SODIUM 40 MG TAB PO SCH ×2 (09:47→21:23)
[2017-03-28] MEDS: LUBIPROSTONE 24 MCG CAP PO SCH ×2 (09:48→21:22)
[2017-03-28] MEDS: ENOXAPARIN 40 MG/0.4 ML SYR SC SCH (09:53)
[2017-03-28] MEDS: ACETAMINOPHEN 325 MG TAB PO SCH (09:58)
[2017-03-28] MEDS ORDERED: PROMETHAZINE HCL 25 MG/ML INJ IVP ONE (13:30)
[2017-03-28] MEDS: NITROFURANTOIN MACROBID 100 MG CAP PO SCH ×2 (13:34→21:23)
--- NOTE | 2017-03-28 16:07 | PDANEPAE ---
ANE History of Present Illness 46 yo for peg ANE Past Medical History - Pulmonary History Hx Oxygen in Use at Home: No Hx Sleep Apnea: No Sleep Apnea Screening Result - Last Documented: Negative - Endocrine History Hx Diabetes: No - Chronic Pain History Chronic Pain: Yes ANE Review of Systems Review of Systems: - Exercise capacity METS (RN): 4 METS ANE Patient History - Allergies Allergies/Adverse Reactions: heparin Allergy (Verified 03/25/17 13:31) affects my platelets iodine Allergy (Verified 03/25/17 13:31) oral contrast Allergy (Uncoded 03/25/17 13:31) - Home Medications Home Medications: Acetaminophen [Tylenol 325mg (*)] 650 mg PO TID 03/25/17 [Last Taken Unknown] Dicyclomine [Bentyl 10 MG (*)] 10 mg PO QID PRN 03/25/17 [Last Taken Unknown] Divalproex [Depakote 250 MG (RX)] 250 mg PO DAILY@08,12,16 03/25/17 [Last Taken 03/25/17 750mg AT 08] Divalproex [Depakote 500 MG (RX)] 500 mg PO DAILY@08,16 03/25/17 [Last Taken 08/05 750 mg AT 08] Docusate Sodium [Colace 100 MG (*)] 100 mg PO BID 03/25/17 [Last Taken 03/25/17] Herbals/Supplements -Info Only 1 ea PO DAILY 03/25/17 [Last Taken Unknown] Lubiprostone [Amitiza 24 mcg (*)] 24 mcg PO BID 03/25/17 [Last Taken Unknown] Multivitamins [Multivitamin (*)] 1 each PO DAILY 03/25/17 [Last Taken Unknown] Pantoprazole Sodium [Protonix 40mg (*)] 40 mg PO BID 03/25/17 [Last Taken Unknown] Pregabalin [Lyrica] 200 mg PO TID 03/25/17 [Last Taken 03/25/17] QUEtiapine FUMARATE [Seroquel 300mg (*)] 300 mg PO TID 03/25/17 [Last Taken 08/05] Sucralfate [Carafate 1gm/10ml Oral Liquid (*)] 1 gm PO QID PRN 03/25/17 [Last Taken Unknown] Tiotropium Inhaler [Spiriva Handihaler] 90 mcg IH DAILY 03/25/17 [Last Taken 08/05] levETIRAcetam [Keppra 500 mg (*)] 500 mg PO TID 03/25/17 [Last Taken 03/25/17] rOPINIRole HCL [Requip 2mg (*)] 2 mg PO HS 03/25/17 [Last Taken 03/24/17] - NPO status NPO Status: no food or drink >8 hours NPO Since - Liquids (Date): 03/28/17 NPO Since - Liquids (Time): 00:00 NPO Since - Solids (Date): 03/28/17 NPO Since - Solids (Time): 00:00 - Smoking Hx Smoking Status: Current every day smoker - Alcohol Use Alcohol Use: Sober ANE Labs/Vital Signs - Labs Result Diagrams: 03/28/17 03:30 03/28/17 03:30 - Vital Signs Blood Pressure: 83/52 Heart Rate: 84 Respiratory Rate: 14 O2 Sat (%): 91 Height: 5 ft 7 in Weight: 49 kg ANE Physical Exam - Airway Neck exam: FROM Mallampati Score: Class 1 Mouth exam: dentures - Pulmonary Pulmonary: no respiratory distress - Cardiovascular Cardiovascular: regular rate and rhythym - ASA Status ASA Status: III ANE Anesthesia Plan Anesthesia Plan: GA with mask
[2017-03-28] MEDS ORDERED: PROPOFOL/EMULSION 500 MG/50 ML BOTTLE IV ONE (16:10)
[2017-03-28] MEDS ORDERED: fentaNYL 100 MCG/2 ML INJ IVP PRN (16:27)
[2017-03-28] MEDS ORDERED: NALOXONE HCL 0.4 MG/ML INJ IVP PRN ×2 (16:27→17:12)
--- NOTE | 2017-03-28 16:50 | POSTANESTH ---
Post Anesthetic Evaluation Cardiovascular Status: Similar to Pre-Op Cond Respiratory Status: Normal, Stable Level of Consciousness/Mental Status: Can Participate in Eval Pain Control: Adequate, Prn Tx Ordered Nausea/Vomiting Control: Adequate, Prn Tx Ordered Complications Possibly Related to Anesthesia: None Noted
[2017-03-28] MEDS ORDERED: PROMETHAZINE HCL 25 MG/ML INJ IVP PRN (17:12)
[2017-03-28] MEDS ORDERED: PROMETHAZINE HCL 25 MG/ML INJ ONE (17:13)
[2017-03-28] MEDS: ERYTHROMYCIN BASE 250 MG TAB PO SCH ×2 (17:50→21:23)
--- NOTE | 2017-03-28 18:26 | HOSPPROG ---
Hospitalist Progress Note Assessment/Plan: #Gastroparesis with chronic n/v -CT Abd: chronic non obstructive Left Nephrolithiasis. No e/o of obstruction -She has had an extensive w/u with GI in the past and appreciate assistance this hospitalization -s/p endoscopy Dr. Wilkinson -need to discuss with her/GI tomorrow re options now -TPN order discontinued -Consider psych consult (She says that she does not eat because she has severe nausea and abd pain) #FTT and severe protein calorie malnutrition -see above -calorie counts -over 40 lb weight loss over a years -PT/OT #Obstipation -bowel regimen #Anemia -likely from poor nutritional status/deficiency #+ e coli UTI -macrobid started #Tobacco dependance -nicotine replacement #Hx of SZ d/o #Hx of Bipolar #Hx of Billroth II with Kaleb en Y #Hx of TBI DVT prophy- lovenox PCP- Dr Gould Dispo > 2 mdnts bc of severity of malnutrition and pending feeding tube placement Subjective: Saw her after endoscopy, 'when can I eat', wants to continue phenergan for nausea. No PEG placed during endoscopy. Objective: Vital Signs Temp Pulse Resp BP Pulse Ox 96.8 F 78 12 84/55 L 97 03/28/17 17:29 03/28/17 17:41 03/28/17 17:29 03/28/17 17:29 03/28/17 17:57 Laboratory Results 03/28/17 03:30 03/28/17 03:30 03/27/17 03/28/17 03/29/17 11:59 11:59 11:59 Intake Total 700 700 Output Total 2000 1000 0 Balance -1300 -1000 700 PT 13.5 SEC (12.0-15.0) 03/28/17 03:30 INR 1.01 (0.83-1.16) 03/28/17 03:30 - Time Spent With Patient Time Spent with Patient: greater than 35 minutes Time Spent with Patient: Greater than 35 minutes spent on this patients care, greater than 50% of time spent counseling, educating, and coordinating care regarding the above mentioned plan. - Pending Discharge Pending Discharge Within 24 Hours: No - Physical Exam Constitutional: cachectic Cardiovascular: regular rate and rhythym Respiratory: no respiratory distress, no rales or rhonchi, clear to auscultation Gastrointestinal: soft, non-tender abdomen, No guarding, No rebound, No distension Neurologic: other (non focal) Psychiatric: flat affect ICD10 Worksheet Patient Problems: Problems Problem Status Onset Failure to thrive in adult Acute Bilateral pneumonia Acute Constipation Acute Hospital-acquired pneumonia Acute Hypoxia Acute Pneumonia Acute Seizure Acute Seizure disorder Acute Severe sepsis with septic shock Acute Urinary tract infection Acute Vomiting Acute
[2017-03-28] MEDS ORDERED: NS 500 ML IV ONE (18:39)
[2017-03-28] MEDS: PROMETHAZINE HCL 25 MG TAB PO PRN (21:29)
[2017-03-29] MEDS: oxyCODONE IR 5 MG TAB PO PRN ×3 (02:22→17:41)
[2017-03-29] MEDS: ERYTHROMYCIN BASE 250 MG TAB PO SCH ×4 (08:09→21:09)
[2017-03-29] MEDS: DIVALPROEX NA 250 MG TAB PO SCH ×3 (08:09→16:12)
[2017-03-29] MEDS: DIVALPROEX NA 500 MG TAB PO SCH ×2 (08:10→16:11)
[2017-03-29] MEDS: SENNOSIDES/DOCUSATE SODIUM TAB PO SCH ×2 (08:18→21:08)
[2017-03-29] MEDS: NITROFURANTOIN MACROBID 100 MG CAP PO SCH ×2 (08:18→21:08)
[2017-03-29] MEDS: levETIRAcetam 500 MG TAB PO SCH ×3 (08:19→21:13)
[2017-03-29] MEDS: PREGABALIN 100 MG CAP PO SCH ×3 (08:19→21:09)
[2017-03-29] MEDS: QUEtiapine FUMARATE 300 MG TAB PO SCH ×3 (08:19→21:09)
[2017-03-29] MEDS: PANTOPRAZOLE SODIUM 40 MG TAB PO SCH ×2 (08:20→21:08)
[2017-03-29] MEDS: ENOXAPARIN 40 MG/0.4 ML SYR SC SCH (08:21)
[2017-03-29] MEDS: NICOTINE 21 MG/24 HR PATCH TD SCH (08:22)
[2017-03-29] MEDS: LUBIPROSTONE 24 MCG CAP PO SCH ×2 (08:35→21:09)
[2017-03-29] MEDS: ALPRAZolam 1 MG TAB PO PRN (08:35)
[2017-03-29] MEDS: POLYETHYLENE GLYCOL 3350 17 GM PKT PO SCH (08:35)
[2017-03-29] MEDS ORDERED: SODIUM CL NASAL 45 ML BTL EACHNARE PRN (09:22)
[2017-03-29] MEDS ORDERED: guaiFENesin 600 MG TAB.ER PO PRN (09:23)
[2017-03-29] MEDS: TIOTROPIUM INHALER 18 MCG/DOSE 5 DOSE/MDI IH SCH (09:48)
[2017-03-29] MEDS: SUCRALFATE 1 GM/10 ML UDCUP PO SCH ×3 (12:01→21:08)
[2017-03-29] MEDS: D5W 1/2 NS 1,000 ML IV SCH (17:12)
--- NOTE | 2017-03-29 17:46 | HOSPPROG ---
Hospitalist Progress Note Assessment/Plan: #Gastroparesis with chronic n/v -CT Abd: chronic non obstructive Left Nephrolithiasis. No e/o of obstruction -She has had an extensive w/u with GI in the past and appreciate assistance this hospitalization -s/p endoscopy Dr. Wilkinson -revwd care with Dr Vivas, discussed with Dr Little IR also re PEG or J tube tomorrow (surgery consult if unable) -TPN order discontinued/never started -Consider psych consult (She says that she does not eat because she has severe nausea and abd pain) #FTT and severe protein calorie malnutrition -see above -calorie counts -over 40 lb weight loss over a years -PT/OT #Obstipation -bowel regimen #Anemia -likely from poor nutritional status/deficiency #+ e coli UTI -macrobid day 2 #congestion -prn meds -resp panel ordered for completeness -consider CXR if increasing O2 need #Tobacco dependance -nicotine replacement #Hx of SZ d/o #Hx of Bipolar #Hx of Billroth II with Kaleb en Y #Hx of TBI DVT prophy- lovenox PCP- Dr Gould Dispo > 2 mdnts bc of severity of malnutrition and pending feeding tube placement Subjective: Eating when I entered. Very sleepy today per RN. No n/v/CP/SOB complaints. Some congestion. Objective: Vital Signs Temp Pulse Resp BP Pulse Ox 97.3 F 97 16 89/59 L 93 03/29/17 16:00 03/29/17 16:00 03/29/17 16:00 03/29/17 16:00 03/29/17 16:00 Microbiology 03/29/17 09:45 Respiratory Panel (PCR) - Final Nasal, Sinus - Swab No Organism Detected Laboratory Results 03/28/17 03:30 03/29/17 04:50 03/28/17 03/29/17 03/30/17 11:59 11:59 11:59 Intake Total 700 Output Total 1000 1450 300 Balance -1000 -750 -300 PT 13.5 SEC (12.0-15.0) 03/28/17 03:30 INR 1.01 (0.83-1.16) 03/28/17 03:30 - Time Spent With Patient Time Spent with Patient: greater than 35 minutes Time Spent with Patient: Greater than 35 minutes spent on this patients care, greater than 50% of time spent counseling, educating, and coordinating care regarding the above mentioned plan. - Pending Discharge Pending Discharge Within 24 Hours: No - Physical Exam Constitutional: cachectic Ears, Nose, Mouth, Throat: moist mucous membranes Cardiovascular: regular rate and rhythym, No edema Respiratory: no respiratory distress, no rales or rhonchi, clear to auscultation Gastrointestinal: soft, non-tender abdomen, No guarding, No rebound, No distension Skin: warm Psychiatric: not encephalopathic, flat affect ICD10 Worksheet Patient Problems: Problems Problem Status Onset Failure to thrive in adult Acute Bilateral pneumonia Acute Constipation Acute Hospital-acquired pneumonia Acute Hypoxia Acute Pneumonia Acute Seizure Acute Seizure disorder Acute Severe sepsis with septic shock Acute Urinary tract infection Acute Vomiting Acute
[2017-03-29] MEDS: PROMETHAZINE HCL 25 MG TAB PO PRN (19:29)
--- NOTE | 2017-03-29 19:30 | SOAPPROG ---
SOAP Progress Note Assessment/Plan: Assessment: 1. N/V without ability to maintain adequate caloric intake(negative GI work-up other than idiopathic gastroparesis). Plan: 1. IR to evaluate for percutaneous jejunal feeding tube. If not possible then consider surgical J-Tube placement. 2. Strongly discourage TPN in this patient. Chavo Vivas MD 03/29/17 19:27 Subjective: CC: N/V, malnutrition. Interval HPI: Patient continues to c/o nausea and inability to eat. EGD revealed no safe endoscopic approach for PEG tube placement yesterday. Objective: Vital Signs Temp Pulse Resp BP Pulse Ox 36.3 C 97 16 89/59 L 93 03/29/17 16:00 03/29/17 16:00 03/29/17 16:00 03/29/17 16:00 03/29/17 16:00 Microbiology 03/29/17 09:45 Respiratory Panel (PCR) - Final Nasal, Sinus - Swab No Organism Detected Laboratory Results 03/28/17 03:30 03/29/17 04:50 03/28/17 03/29/17 03/30/17 05:59 05:59 05:59 Intake Total 700 120 Output Total 1000 900 850 Balance -1000 -200 -730 PT 13.5 SEC (12.0-15.0) 03/28/17 03:30 INR 1.01 (0.83-1.16) 03/28/17 03:30 Physical Exam - Physical Exam General Appearance: alert, mild distress Respiratory: lungs clear, normal breath sounds Cardiac/Chest: regular rate, rhythm Abdomen: normal bowel sounds, non-tender, soft Skin: normal color, warm/dry Neuro/Psych: alert, normal mood/affect, oriented x 3 ICD10 Worksheet Patient Problems: Problems Problem Status Onset Failure to thrive in adult Acute Bilateral pneumonia Acute Constipation Acute Hospital-acquired pneumonia Acute Hypoxia Acute Pneumonia Acute Seizure Acute Seizure disorder Acute Severe sepsis with septic shock Acute Urinary tract infection Acute Vomiting Acute
[2017-03-30] MEDS: oxyCODONE IR 5 MG TAB PO PRN ×4 (03:18→23:46)
[2017-03-30] MEDS: SUCRALFATE 1 GM/10 ML UDCUP PO SCH ×4 (05:12→22:08)
[2017-03-30] MEDS: D5W 1/2 NS 1,000 ML IV SCH (05:13)
[2017-03-30] MEDS ORDERED: NALOXONE HCL 0.4 MG/ML INJ IVP PRN (07:31)
[2017-03-30] MEDS ORDERED: MEPERIDINE 25 MG/ML SYR IVP PRN (07:31)
[2017-03-30] MEDS ORDERED: fentaNYL 100 MCG/2 ML INJ IVP PRN (07:31)
[2017-03-30] MEDS ORDERED: FLUMAZENIL 0.5 MG/5 ML MDV IVP PRN (07:31)
[2017-03-30] MEDS ORDERED: MIDAZOLAM 2 MG/2 ML VIAL IVP PRN (07:31)
[2017-03-30] MEDS ORDERED: NS 1,000 ML IV SCH (07:45)
[2017-03-30] MEDS: PREGABALIN 100 MG CAP PO SCH ×3 (08:43→23:48)
[2017-03-30] MEDS: levETIRAcetam 500 MG TAB PO SCH ×2 (08:44→16:18)
[2017-03-30] MEDS: DIVALPROEX NA 500 MG TAB PO SCH ×2 (08:44→16:17)
[2017-03-30] MEDS: DIVALPROEX NA 250 MG TAB PO SCH ×3 (08:44→16:17)
[2017-03-30] MEDS: ALPRAZolam 1 MG TAB PO PRN (08:45)
[2017-03-30] MEDS: QUEtiapine FUMARATE 300 MG TAB PO SCH ×3 (08:46→23:48)
[2017-03-30] MEDS: NITROFURANTOIN MACROBID 100 MG CAP PO SCH ×2 (08:46→22:13)
[2017-03-30] MEDS: LUBIPROSTONE 24 MCG CAP PO SCH ×2 (08:47→22:07)
[2017-03-30] MEDS: PANTOPRAZOLE SODIUM 40 MG TAB PO SCH ×2 (08:47→22:07)
[2017-03-30] MEDS: TIOTROPIUM INHALER 18 MCG/DOSE 5 DOSE/MDI IH SCH (08:47)
[2017-03-30] MEDS: NICOTINE 21 MG/24 HR PATCH TD SCH (08:48)
[2017-03-30] MEDS: ERYTHROMYCIN BASE 250 MG TAB PO SCH ×4 (08:53→22:07)
[2017-03-30] MEDS: POLYETHYLENE GLYCOL 3350 17 GM PKT PO SCH (08:54)
[2017-03-30] MEDS ORDERED: LIDOCAINE 2% JELLY 20 ML (UROJECT) ONE (10:37)
--- NOTE | 2017-03-30 10:37 | PDANEPAE ---
ANE History of Present Illness 46 year old female for G-tube placement with IR. ANE Past Medical History - Cardiovascular History Hx Hypertension: No Hx Arrhythmias: No Hx Chest Pain: No Hx Coronary Artery / Peripheral Vascular Disease: No Hx CHF / Valvular Disease: No Hx Palpitations: No - Pulmonary History Hx COPD: No Hx Asthma/Reactive Airway Disease: No Hx Recent Upper Respiratory Infection: No Hx Oxygen in Use at Home: No Hx Sleep Apnea: No Sleep Apnea Screening Result - Last Documented: Negative Pulmonary History Comment: Patient has had increasing O2 requirement while in the hospital. - Endocrine History Hx Diabetes: No Hypothyroid: No Hyperthyroid: No Obesity: no - Renal History Hx Renal Disorders: No - Liver History Hx Hepatic Disorders: No - Neurological & Psychiatric Hx Hx Neurological and Psychiatric Disorders: Yes Neurological / Psychiatric History Comment: Seizure DO - not otherwise described. Documented psychiatric issues - GI History Gastrointestinal History Comment: Constant nausea and throws up food she ingests. - Chronic Pain History Chronic Pain: Yes ANE Review of Systems Review of systems is: negative Review of Systems: - Exercise capacity Exercise capacity: <4 METS METS (RN): 4 METS ANE Patient History - Allergies Allergies/Adverse Reactions: heparin Allergy (Verified 03/25/17 13:31) affects my platelets iodine Allergy (Verified 03/25/17 13:31) oral contrast Allergy (Uncoded 03/25/17 13:31) - Home Medications Home medications: home medication list seen and reviewed Home Medications: Acetaminophen [Tylenol 325mg (*)] 650 mg PO TID 03/25/17 [Last Taken Unknown] Dicyclomine [Bentyl 10 MG (*)] 10 mg PO QID PRN 03/25/17 [Last Taken Unknown] Divalproex [Depakote 250 MG (RX)] 250 mg PO DAILY@08,12,16 03/25/17 [Last Taken 03/25/17 750mg AT 08] Divalproex [Depakote 500 MG (RX)] 500 mg PO DAILY@08,16 03/25/17 [Last Taken 08/05 750 mg AT 08] Docusate Sodium [Colace 100 MG (*)] 100 mg PO BID 03/25/17 [Last Taken 03/25/17] Herbals/Supplements -Info Only 1 ea PO DAILY 03/25/17 [Last Taken Unknown] Lubiprostone [Amitiza 24 mcg (*)] 24 mcg PO BID 03/25/17 [Last Taken Unknown] Multivitamins [Multivitamin (*)] 1 each PO DAILY 03/25/17 [Last Taken Unknown] Pantoprazole Sodium [Protonix 40mg (*)] 40 mg PO BID 03/25/17 [Last Taken Unknown] Pregabalin [Lyrica] 200 mg PO TID 03/25/17 [Last Taken 03/25/17] QUEtiapine FUMARATE [Seroquel 300mg (*)] 300 mg PO TID 03/25/17 [Last Taken 08/05] Sucralfate [Carafate 1gm/10ml Oral Liquid (*)] 1 gm PO QID PRN 03/25/17 [Last Taken Unknown] Tiotropium Inhaler [Spiriva Handihaler] 90 mcg IH DAILY 03/25/17 [Last Taken 08/05] levETIRAcetam [Keppra 500 mg (*)] 500 mg PO TID 03/25/17 [Last Taken 03/25/17] rOPINIRole HCL [Requip 2mg (*)] 2 mg PO HS 03/25/17 [Last Taken 03/24/17] - NPO status NPO Status: no food or drink >8 hours NPO Since - Liquids (Date): 03/28/17 NPO Since - Liquids (Time): 00:00 NPO Since - Solids (Date): 03/28/17 NPO Since - Solids (Time): 00:00 - Anes Hx Anes Hx: no prior problems - Smoking Hx Smoking Status: Current every day smoker - Alcohol Use Alcohol Use: Sober - Family Anes Hx Family Anes Hx: neg - N/A ANE Labs/Vital Signs - Labs Result Diagrams: 03/28/17 03:30 03/29/17 04:50 - Vital Signs Vital Signs: reviewed preoperatively; see RN documention for details Blood Pressure: 91/63 Heart Rate: 87 Respiratory Rate: 14 O2 Sat (%): 95 Height: 170.18 cm Weight: 49 kg ANE Physical Exam - Airway Neck exam: FROM Mallampati Score: Class 2 Mouth exam: dentures - Pulmonary Pulmonary: no respiratory distress - Cardiovascular Cardiovascular: regular rate and rhythym - ASA Status ASA Status: III ANE Anesthesia Plan Anesthesia Plan: general endotracheal anesthesia, GA w LMA Total IV Anesthesia: No
[2017-03-30] MEDS ORDERED: IOPAMIDOL (ISOVUE-300) 100 ML BTL ONE (10:38)
[2017-03-30] MEDS ORDERED: PROPOFOL 200 MG/20 ML VIAL ONE (10:40)
[2017-03-30] MEDS ORDERED: fentaNYL 100 MCG/2 ML INJ ONE (10:42)
[2017-03-30] MEDS ORDERED: ROCURONIUM 100 MG/10 ML VIAL ONE (10:42)
[2017-03-30] MEDS: SENNOSIDES/DOCUSATE SODIUM TAB PO SCH ×2 (10:42→22:08)
[2017-03-30] MEDS ORDERED: GLUCAGON HCL 1 MG VIAL ONE (10:48)
[2017-03-30] MEDS ORDERED: MIDAZOLAM 2 MG/2 ML VIAL ONE (10:55)
[2017-03-30] MEDS ORDERED: LIDOCAINE 1% 300 MG/30 ML SDV ONE (11:24)
--- NOTE | 2017-03-30 11:57 | PDRADPN ---
Radiology Procedure Note Date of Procedure: 03/30/17 Radiologist: Mary Jo Little Anesthesia: GET(General Endotracheal) Pre-op Diagnosis: malnurished Post-op Diagnosis: same Indication: needs nutrition Procedure: G-tube placement Finding(s): see report Inf/Abcess present in the surg proc area at time of surgery?: No Complications: possible aspiration
--- NOTE | 2017-03-30 12:17 | ASMTCMCOM ---
CM Note CM Note Notes: Pt has had a PEG tube placed, updated notes sent to [facility] at [place]. Dc date unclear. DC Plan: [place] Date Signed: 03/30/2017 12:16 PM Electronically Signed By:Leslie Leonard RN
[2017-03-30] MEDS: NS 1,000 ML IV SCH (14:34)
[2017-03-30] MEDS: PIPERACILLIN/TAZO 3.375 GM/DEX 50 ML IV SCH ×2 (16:33→23:55)
[2017-03-30] MEDS: ALPRAZolam 0.5 MG TAB PO PRN (16:33)
--- NOTE | 2017-03-30 17:40 | SOAPPROG ---
SOAP Progress Note Assessment/Plan: Assessment: 1. N/V without ability to maintain adequate caloric intake(negative GI work-up other than idiopathic gastroparesis). 2. New aspiration after IR placement of J-tube; in ICU for close observation. Plan: 1. Re-feed through J-Tube when stable. Chavo Vivas MD 03/30/17 17:37 Subjective: CC: N/V, feeding difficulties. Interval HPI: J-tube placed today in IR. Patient had post-op aspiration and hemodynamic instablity requiring transient intubation and transfer to ICU. Vitals now more stable and extubated. Objective: Vital Signs Temp Pulse Resp BP Pulse Ox 36.6 C 95 11 L 79/51 L 95 03/30/17 16:00 03/30/17 17:00 03/30/17 17:00 03/30/17 17:00 03/30/17 17:00 Microbiology 03/29/17 09:45 Respiratory Panel (PCR) - Final Nasal, Sinus - Swab No Organism Detected Laboratory Results 03/28/17 03:30 03/29/17 04:50 03/29/17 03/30/17 03/31/17 05:59 05:59 05:59 Intake Total 263 629 5730 Output Total 900 1650 Balance -200 -1530 2180 PT 13.5 SEC (12.0-15.0) 03/28/17 03:30 INR 1.01 (0.83-1.16) 03/28/17 03:30 Physical Exam - Physical Exam General Appearance: other (lethargic) Respiratory: lungs clear, normal breath sounds Cardiac/Chest: regular rate, rhythm Abdomen: normal bowel sounds, non-tender, soft (J-tube in place.) Skin: normal color, warm/dry ICD10 Worksheet Patient Problems: Problems Problem Status Onset Failure to thrive in adult Acute Bilateral pneumonia Acute Constipation Acute Hospital-acquired pneumonia Acute Hypoxia Acute Pneumonia Acute Seizure Acute Seizure disorder Acute Severe sepsis with septic shock Acute Urinary tract infection Acute Vomiting Acute
[2017-03-30] MEDS ORDERED: PIPERACILLIN/TAZO 3.375 GM/DEX 50 ML IV SCH (18:00)
--- NOTE | 2017-03-30 18:43 | SOAPPROG ---
SOAP Progress Note Assessment/Plan: Assessment: Post G-tube placement: difficult G-tube because of anatomy. Small subxyphoid window. Need to make sure abd remains benign before use, but may be hard to assess with patient's level of consciousness. Aspiration pneumonitis, on Abx. Plan: Will check abd exam tomorrow. If in doubt, may need to do CT abd to check. 03/30/17 18:38 Subjective: Asleep. Hard to awaken for exam. Seems to be C/O of some abd pain. Objective: Vital Signs Temp Pulse Resp BP Pulse Ox 36.6 C 94 12 83/51 L 100 03/30/17 16:00 03/30/17 18:00 03/30/17 18:00 03/30/17 18:00 03/30/17 18:00 Laboratory Results 03/28/17 03:30 03/29/17 04:50 03/29/17 03/30/17 03/31/17 05:59 05:59 05:59 Intake Total 938 646 4704 Output Total 900 1650 Balance -200 -1530 2660 PT 13.5 SEC (12.0-15.0) 03/28/17 03:30 INR 1.01 (0.83-1.16) 03/28/17 03:30 Abd is soft. No bleeding or hematoma at G-tube site. New CXR reviewed, showing increased infiltrates, particularly on LT, c/w aspiration pneumonitis. ICD10 Worksheet Patient Problems: Problems Problem Status Onset Failure to thrive in adult Acute Bilateral pneumonia Acute Constipation Acute Hospital-acquired pneumonia Acute Hypoxia Acute Pneumonia Acute Seizure Acute Seizure disorder Acute Severe sepsis with septic shock Acute Urinary tract infection Acute Vomiting Acute
--- NOTE | 2017-03-30 19:52 | GCON ---
[f rep st] CONSULTATION PULMONARY/CRITICAL CARE CONSULTATION DATE OF CONSULTATION: 03/30/2017 REASON FOR CONSULTATION: Aspiration pneumonitis. HISTORY: The patient is a 46-year-old with multiple medical and psychiatric problems. She had a gas trostomy tube placed today by Interventional Radiology with the help of Anesthesia. She clinically a spirated late in the case. She was kept intubated for a short period of time in the PACU and then ex tubated. Follow-up chest x-ray shows new bilateral pulmonary infiltrates consistent with aspiration pneumonitis. She is being admitted to the intensive care unit for observation. She currently is doi ng well. Post aspiration, she was initially on 10 L and has been weaned to 3 L. Oxygen saturations at this time are excellent. She is afebrile with a slow respiratory rate of approximately 16. She i s still somewhat lethargic related to medications given to her for the procedure. The patient is a resident of [place]. She has significant psychiatric disease with bipolar. Verito field is a history of seizures and traumatic brain injury. She was admitted on 03/26 for evaluation of w eight loss and nausea and vomiting. This is associated with a history of gastroparesis, peptic ulcer disease, a Billroth II procedure with Kaleb-en-Y, and previous treatment for H pylori. She also has a history of kidney stones. During her course here, she has been seen by Gastroenterology. She is again being treated for H pylo ri. A G-tube placement was requested by GI, which was done today. PAST MEDICAL HISTORY: This is as described above in the HPI. MEDICATIONS: She was on multiple medications on admission, including Depakote, Bentyl, Protonix, Ami tiza, Requip, Spiriva, Seroquel, Keppra, Lyrica, and p.r.n. medications. DRUG ALLERGIES: Iodine and heparin. SOCIAL HISTORY: She is a resident of [place]. She smokes cigarettes daily, as well as marijuana. She has 1 daughter, who apparently lives out of state. FAMILY HISTORY: Noncontributory next. REVIEW OF SYSTEMS: Currently unobtainable secondary to her lethargy. PHYSICAL EXAMINATION: GENERAL: Reveals a very thin woman, who is sleepy postoperatively. She is in no acute distress. VITAL SIGNS: Blood pressure is 85/55, heart rate 85 with sinus rhythm on the mo nitor. Respiratory rate is 14. She is currently on 3 L of oxygen with saturations in the high 90s. She is afebrile. HEENT: Unremarkable for lymphadenopathy or thyromegaly. She wears glasses. NECK : There is no jugular venous distention. CHEST: The chest is coarse, but clear anteriorly. Breath sounds are somewhat diminished bilaterally. A few nonspecific rales are noted. There is some centr al airway congestion with forced maneuvers. HEART: Regular in rate and rhythm. There is a soft sys tolic murmur. No gallops. ABDOMEN: Soft. The new feeding tube is in place. Bowel sounds are redu eliezer. She has no Marlow catheter. EXTREMITIES: Unremarkable for significant edema, cords, or tendern ess. SKIN: Without rash or lesions. NEUROLOGIC: Nonfocal. She moves all extremities and answers simple questions. She remains somewhat lethargic, as outlined above. DATABASE: Chest x-ray post procedure showed new diffuse scattered bilateral areas of infiltrate cons istent with aspiration. Recent laboratory shows a white blood cell count of 5000, hematocrit of 29, and a platelet count of 2 34,000. PT and PTT were normal, basic metabolic panel is normal, including renal function. Calcium is 7.3. Liver function studies are now normal, mildly elevated within the last 24 hours. Albumin is 1.7. Urinalysis on admission showed pyuria and grew E coli. ASSESSMENT: 1. Status post observed aspiration at the and of her gastrostomy tube placement. This was apparentl y relatively large volume. Anesthesia was present and suctioned a fairly large amount of material fr om her mouth. Bronchoscopy was not done. Apparently, the gastric material was fairly dense, possibl y feculent? She is being admitted to the intensive care unit for observation, with the possible risk of declining pulmonary status over the next 12 hours or so. She will be started on antibiotics, giv en bronchodilator treatments, and chest x-ray and pulmonary status followed. 2. History of gastroparesis associated with weight loss. Status post gastrostomy placement today. 3. History of bipolar disease, on multiple medications. 4. History of ongoing tobacco abuse, possible chronic obstructive pulmonary disease. She is on Spir ju at [place]. She continues to smoke cigarettes. PLAN AND RECOMMENDATIONS: The patient will be kept in the intensive care unit, at least overnight. Chest x-ray and respiratory status will be followed. Spiriva will be stopped and DuoNeb initiated. Zosyn will be added to her regimen to cover for nosocomial aspiration. Further plans and recommendations will be made based on her progress over the next 12-24 hours. /[id number]/MODL
[2017-03-30] MEDS: IPRATROPIUM/ALBUTEROL 3 ML DEYVIAL IH SCH (21:22)
[2017-03-30] MEDS: levETIRAcetam 500 MG in NS 100 ML IV SCH (22:11)
[2017-03-30] MEDS: PANTOPRAZOLE SODIUM 40 MG VIAL IVP SCH (22:41)
[2017-03-30] MEDS: ERYTHROMYCIN LACTOBIONATE IV SCH (22:52)
[2017-03-30] MEDS: NS IV SCH (22:52)
[2017-03-31] MEDS: oxyCODONE IR 5 MG TAB PO PRN ×5 (03:01→19:38)
[2017-03-31] MEDS: NS IV SCH ×2 (03:02→09:27)
[2017-03-31] MEDS: ERYTHROMYCIN LACTOBIONATE IV SCH ×2 (03:02→09:27)
[2017-03-31] MEDS: IPRATROPIUM/ALBUTEROL 3 ML DEYVIAL IH SCH ×4 (05:01→20:06)
[2017-03-31] MEDS: PIPERACILLIN/TAZO 3.375 GM/DEX 50 ML IV SCH ×3 (05:34→17:59)
[2017-03-31] MEDS: NS 1,000 ML IV SCH ×4 (05:34→17:51)
[2017-03-31] MEDS: levETIRAcetam 500 MG in NS 100 ML IV SCH ×3 (05:36→22:20)
[2017-03-31] MEDS: SUCRALFATE 1 GM/10 ML UDCUP PO SCH ×4 (05:37→19:40)
--- NOTE | 2017-03-31 07:53 | SOAPPROG ---
SOAP Progress Note Assessment/Plan: #Gastroparesis with chronic n/v -CT Abd: chronic non obstructive Left Nephrolithiasis. No e/o of obstruction -She has had an extensive w/u with GI in the past and appreciate assistance this hospitalization -s/p endoscopy Dr. Wilkinson/unable to place PEG tube -s/p PEG tube today with IR/Dr Little -revwd care with Dr Vivas, Dr Little -TPN order discontinued/never started -Consider psych consult (She says that she does not eat because she has severe nausea and abd pain) #s/p aspiration post procedure today -resp distress and hypoxia, transferred to ICU from PACU -on ABX per pulm, appreciate their assistance with care #FTT and severe protein calorie malnutrition -see above -calorie counts -over 40 lb weight loss over a years -PT/OT #Obstipation -bowel regimen #Anemia -likely from poor nutritional status/deficiency #+ e coli UTI -macrobid day 3 #congestion -prn meds -resp panel neg -cxr prior to procedure showed no changes from prev #Tobacco dependance -nicotine replacement #Hx of SZ d/o #Hx of Bipolar #Hx of Billroth II with Kaleb en Y #Hx of TBI DVT prophy- lovenox PCP- Dr Gould Dispo > 2 mdnts bc of severity of malnutrition, aspiration, acute hypoxic failure Subjective: LATE ENTRY from DOS 03/30/2017 Awake, in ICU. Denied CP/SOB. Still groggy from anesthesia. Objective: Vital Signs Temp Pulse Resp BP Pulse Ox 98 F 90 10 L 79/50 L 94 03/31/17 03:00 03/31/17 06:00 03/31/17 06:00 03/31/17 06:00 03/31/17 06:00 Laboratory Results 03/28/17 03:30 03/29/17 04:50 03/29/17 03/30/17 03/31/17 11:59 11:59 11:59 Intake Total 700 1450 3380 Output Total 1450 1100 1700 Balance -710 811 8796 PT 13.5 SEC (12.0-15.0) 03/28/17 03:30 INR 1.01 (0.83-1.16) 03/28/17 03:30 - Pending Discharge Pending Discharge Within 24 Hours: No Physical Exam - Physical Exam General Appearance: no apparent distress, cachetic Respiratory: decreased breath sounds, No respiratory distress Cardiac/Chest: regular rate, rhythm, No edema Abdomen: other (scaphoid), No guarding, No rebound Neuro/Psych: other (drowsy, s/p anesthesia) ICD10 Worksheet Patient Problems: Problems Problem Status Onset Failure to thrive in adult Acute Bilateral pneumonia Acute Constipation Acute Hospital-acquired pneumonia Acute Hypoxia Acute Pneumonia Acute Seizure Acute Seizure disorder Acute Severe sepsis with septic shock Acute Urinary tract infection Acute Vomiting Acute
[2017-03-31 08:59] LABS: PLATELET COUNT 168 10^3/uL (150-400)
[2017-03-31] MEDS: PANTOPRAZOLE SODIUM 40 MG VIAL IVP SCH ×2 (09:28→19:40)
[2017-03-31] MEDS: NICOTINE 21 MG/24 HR PATCH TD SCH (09:29)
[2017-03-31] MEDS: QUEtiapine FUMARATE 300 MG TAB PO SCH ×3 (09:29→22:20)
[2017-03-31] MEDS: SENNOSIDES/DOCUSATE SODIUM TAB PO SCH ×2 (09:32→19:38)
[2017-03-31] MEDS: PREGABALIN 100 MG CAP PO SCH ×3 (09:33→22:20)
[2017-03-31] MEDS: DIVALPROEX NA 500 MG TAB PO SCH ×2 (09:33→16:21)
[2017-03-31] MEDS: POLYETHYLENE GLYCOL 3350 17 GM PKT PO SCH (09:36)
[2017-03-31] MEDS: DIVALPROEX NA 250 MG TAB PO SCH ×3 (10:17→16:21)
[2017-03-31] MEDS: LUBIPROSTONE 24 MCG CAP PO SCH ×2 (10:18→19:46)
[2017-03-31] MEDS: NITROFURANTOIN MACROBID 100 MG CAP PO SCH ×2 (10:19→19:39)
[2017-03-31] MEDS: ALPRAZolam 0.5 MG TAB PO PRN (11:20)
[2017-03-31] MEDS ORDERED: ALPRAZolam 0.5 MG TAB PO PRN (12:04)
--- NOTE | 2017-03-31 12:55 | SOAPPROG ---
SOAP Progress Note Assessment/Plan: Assessment: 1. N/V without ability to maintain adequate caloric intake(negative GI work-up other than idiopathic gastroparesis). 2. New aspiration after IR placement of G-tube(unable to place J tube at time of placement); in ICU for close observation. Plan: 1. No feedings through G-Tube today due to recent aspiration. 2. I will discuss with Dr Little conversion to J tube in the next few days. Chavo Vivas MD 03/31/17 12:52 Subjective: CC: Feeding difficulties; s/p G-tube placement with post-op aspiration. Interval HPI: Patient resting in bed without complaints. Objective: Vital Signs Temp Pulse Resp BP Pulse Ox 36.4 C 103 H 10 L 75/37 L 93 03/31/17 12:00 03/31/17 12:00 03/31/17 12:00 03/31/17 12:00 03/31/17 12:00 Laboratory Results 03/31/17 08:50 03/31/17 08:50 03/30/17 03/31/17 04/01/17 05:59 05:59 05:59 Intake Total 120 4710 Output Total 1650 1700 20 Balance -1530 3010 -20 PT 13.5 SEC (12.0-15.0) 03/28/17 03:30 INR 1.01 (0.83-1.16) 03/28/17 03:30 Physical Exam - Physical Exam General Appearance: alert, no apparent distress Respiratory: lungs clear, normal breath sounds Cardiac/Chest: regular rate, rhythm Abdomen: non-tender, soft (G-tube in place in epigastrium without erythema or tenderness at site.) Skin: normal color, warm/dry Neuro/Psych: alert, oriented x 3 ICD10 Worksheet Patient Problems: Problems Problem Status Onset Failure to thrive in adult Acute Bilateral pneumonia Acute Constipation Acute Hospital-acquired pneumonia Acute Hypoxia Acute Pneumonia Acute Seizure Acute Seizure disorder Acute Severe sepsis with septic shock Acute Urinary tract infection Acute Vomiting Acute
--- NOTE | 2017-03-31 14:30 | HOSPPROG ---
Hospitalist Progress Note Assessment/Plan: 46-year-old female who suffered acute aspiration pneumonia following the placement of a PEG tube. She had acute respiratory failure was placed in the ICU but is now significantly improved. Patient is new to me today -acute respiratory failure secondary to aspiration post procedure of placement of a PEG tube. The patient is now on 2 L of oxygen is significantly improved and no longer in respiratory distress does maintained on Zosyn and bronchodilators. -gastroparesis with chronic nausea and vomiting: Patient is post stents of workup with GI which finds no other GI pathology other than gastro paresis. She is currently on erythromycin as it is reported she does not tolerate Reglan. Per GI and IR there will be an attempt to convert the PEG tube to a shaken os to be tube in the future. -some is reported at [facility]: Patient takes numerous medications and currently is somnolent although she is also described as being quite active in [facility]. This is inconsistent and will trying Cindy Fire medications to allow for appropriate mental status and interaction. There is probably an underlying psychiatric disorder -FTT and severe protein caloric malnutrition. If she continues to be unable to eat then we will pursue TPN. -anemia secondary chronic disease. -UTI, E coli: On Macrobid. #Gastroparesis with chronic n/v -CT Abd: chronic non obstructive Left Nephrolithiasis. No e/o of obstruction -She has had an extensive w/u with GI in the past and appreciate assistance this hospitalization -s/p endoscopy Dr. Wilkinson/unable to place PEG tube -s/p PEG tube today with IR/Dr Little -revwd care with Dr Sidney Cage -TPN order discontinued/never started -Consider psych consult (She says that she does not eat because she has severe nausea and abd pain) #s/p aspiration post procedure today -resp distress and hypoxia, transferred to ICU from PACU -on ABX per pulm, appreciate their assistance with care #FTT and severe protein calorie malnutrition -see above -calorie counts -over 40 lb weight loss over a years -PT/OT #Obstipation -bowel regimen #Anemia -likely from poor nutritional status/deficiency #+ e coli UTI -macrobid day 3 Subjective: No complaints she is somnolent Objective: Vital Signs Temp Pulse Resp BP Pulse Ox 36.4 C 103 H 10 L 75/37 L 93 03/31/17 12:00 03/31/17 12:00 03/31/17 12:00 03/31/17 12:00 03/31/17 12:00 Laboratory Results 03/31/17 08:50 03/31/17 08:50 03/30/17 03/31/17 04/01/17 05:59 05:59 05:59 Intake Total 120 4710 Output Total 1650 1700 20 Balance -1530 3010 -20 PT 13.5 SEC (12.0-15.0) 03/28/17 03:30 INR 1.01 (0.83-1.16) 03/28/17 03:30 - Time Spent With Patient Time Spent with Patient: greater than 35 minutes Time Spent with Patient: Greater than 35 minutes spent on this patients care, greater than 50% of time spent counseling, educating, and coordinating care regarding the above mentioned plan. - Pending Discharge Pending Discharge Within 24 Hours: No Pending Discharge Within 48 Hours: No - Physical Exam Constitutional: no apparent distress, chronically ill appearing Eyes: PERRL, anicteric sclera Ears, Nose, Mouth, Throat: moist mucous membranes Cardiovascular: regular rate and rhythym, no murmur, rub, or gallop Respiratory: reduced air movement, inspiratory crackles, bronchial breath sounds , rhonchi Gastrointestinal: normoactive bowel sounds, other (Peg tube in place with tenderness around the area without erythema) Genitourinary: no bladder fullness Skin: warm Musculoskeletal: generalized weakness Neurologic: AAOx3, CN II-XII Intact Psychiatric: other (Somnolent) ICD10 Worksheet Patient Problems: Problems Problem Status Onset Failure to thrive in adult Acute Bilateral pneumonia Acute Constipation Acute Hospital-acquired pneumonia Acute Hypoxia Acute Pneumonia Acute Seizure Acute Seizure disorder Acute Severe sepsis with septic shock Acute Urinary tract infection Acute Vomiting Acute
--- NOTE | 2017-03-31 17:40 | POSTANESTH ---
Post Anesthetic Evaluation Cardiovascular Status: Normal, Stable, Similar to Pre-Op Cond Respiratory Status: Tx Decrease in SpO2 Level of Consciousness/Mental Status: Mildly Sleepy, Arousable Pain Control: Adequate, Prn Tx Ordered Nausea/Vomiting Control: Adequate, Prn Tx Ordered Complications Possibly Related to Anesthesia: Other, See Comments (Patient with aspiration event during placement of ET-tube during PEG tube placement. Patient able to be extubated following procedure. Discussion between Anesthesiologist and Pulmonary Critical Care Physician, decision to place patient in ICU overnight in anticipation of aspiration pneumonitis &/or ARDS. Patient started on antibiotics, did well overnight and decreased O2 requirement to 2L O2 / min via NC. (Pre-op O2 requirement had been 6L O2 via NC). Patient discharged from ICU to floor today. Appreciate Pulmonary and Hospitalist service input.)
--- NOTE | 2017-03-31 18:51 | SOAPPROG ---
SOAP Progress Note Assessment/Plan: Assessment: 46 yo F w h/o Kaleb-en-Y and chronic NV who is s/p difficult G-tube placement 1 day ago complicated by an aspiration event. She spent the night in the ICU for monitoring but is clinically doing well. She endorses pain at the site of placement but her abd exam is benign. G-tube is currently putting out thick green/brown material which presumably represents jejunal contents which are refluxing into the stomach. Plan: 1. Ok to use G-tube for feeds, however, recommend starting slow. If material continues to reflux into the stomach from the jejunum, pt may continue to experience N/V and conversion to GJ or a surgical J-tube may be necessary. 2. If pt exam changes or there is any concern regarding G-tube position, recommend CT AP with contrast. Would also recommend injecting a small amount of dilute oral contrast into the G-tube prior to CT. 3. Recommend enema to clear large bowel, in case obstipation is contributing to reflux of jejunal contents. Thank you for the opportunity to assist in the care of Ms. Tucker. Case discussed with Dr. Little who agrees with the above. 03/31/17 22:15 03/31/17 22:24 Subjective: C/o of midline abd pain at the site of gastrostomy tube placement. No other specific complaints. Objective: Vital Signs Temp Pulse Resp BP Pulse Ox 36.7 C 95 12 76/49 L 93 03/31/17 16:18 03/31/17 16:18 03/31/17 16:18 03/31/17 16:18 03/31/17 16:18 Laboratory Results 03/31/17 08:50 03/31/17 08:50 03/30/17 03/31/17 04/01/17 05:59 05:59 05:59 Intake Total 120 4710 1388 Output Total 1650 1700 950 Balance -1530 3010 438 PT 13.5 SEC (12.0-15.0) 03/28/17 03:30 INR 1.01 (0.83-1.16) 03/28/17 03:30 Gen: Awake, alert, NAD Heart: RRR Lungs: Inspiratory crackles, bronchial breath sounds, rhonchi Abd: G-tube in place, site dressing clean and dry, abd ND, soft, appropriately TTP Neuro: Gross nonfocal ICD10 Worksheet Patient Problems: Problems Problem Status Onset Failure to thrive in adult Acute Bilateral pneumonia Acute Constipation Acute Hospital-acquired pneumonia Acute Hypoxia Acute Pneumonia Acute Seizure Acute Seizure disorder Acute Severe sepsis with septic shock Acute Urinary tract infection Acute Vomiting Acute
[2017-04-01] MEDS: PIPERACILLIN/TAZO 3.375 GM/DEX 50 ML IV SCH ×5 (00:20→23:08)
[2017-04-01] MEDS: oxyCODONE IR 5 MG TAB PO PRN ×6 (00:21→23:09)
[2017-04-01] MEDS: IPRATROPIUM/ALBUTEROL 3 ML DEYVIAL IH SCH ×4 (05:01→22:03)
[2017-04-01 05:03] LABS: PLATELET COUNT 183 10^3/uL (150-400)
[2017-04-01] MEDS: SUCRALFATE 1 GM/10 ML UDCUP PO SCH ×4 (05:10→21:27)
[2017-04-01] MEDS: ALPRAZolam 0.25 MG TAB PO PRN ×2 (05:11→11:36)
[2017-04-01] MEDS: NS 1,000 ML IV SCH ×2 (05:11→23:18)
[2017-04-01] MEDS: levETIRAcetam 500 MG in NS 100 ML IV SCH ×2 (05:58→14:23)
[2017-04-01] MEDS: NITROFURANTOIN MACROBID 100 MG CAP PO SCH ×2 (08:30→21:28)
[2017-04-01] MEDS: PANTOPRAZOLE SODIUM 40 MG VIAL IVP SCH (08:30)
[2017-04-01] MEDS: SENNOSIDES/DOCUSATE SODIUM TAB PO SCH ×2 (08:30→21:28)
[2017-04-01] MEDS: DIVALPROEX NA 500 MG TAB PO SCH ×2 (08:30→15:20)
[2017-04-01] MEDS: NICOTINE 21 MG/24 HR PATCH TD SCH (08:30)
[2017-04-01] MEDS: DIVALPROEX NA 250 MG TAB PO SCH ×3 (08:30→15:21)
[2017-04-01] MEDS: QUEtiapine FUMARATE 300 MG TAB PO SCH ×3 (08:30→21:28)
[2017-04-01] MEDS: PREGABALIN 100 MG CAP PO SCH ×3 (08:30→21:28)
[2017-04-01] MEDS: LUBIPROSTONE 24 MCG CAP PO SCH ×2 (08:30→21:30)
[2017-04-01] MEDS: POLYETHYLENE GLYCOL 3350 17 GM PKT PO SCH (09:57)
--- NOTE | 2017-04-01 11:09 | WOCRNPDOC ---
[facility] Advanced Assessment Note - Skin Integrity Problem, Advanced Assess Right Sacrum Pressure Injury Dressing Type: Allevyn Life Dressing Description: Clean/Dry, Intact Exudate Amount: Moderate Exudate Color: Yellow, Brown Exudate Characteristic(s): Thick Integumentary Issue Intervention: Visualized Under Dressing Loretta Wound Tissue: Erythema, Non-blanching (4.5x8 area of non blanching erythema ) Wound Bed Color: Purple, Red Wound Bed Constitution: Granulation Tissue Wound Edges: Attached Site Measurement - Head-to-Toe Length X Width X Depth (cm): 2x0.6x0.2 Pressure Injury Stage: Stage 3 Pressure Injury Present on Admit: No Skin Integrity Problem Comment: One full thickness wound is present (stage 3) with an area of DTI just inferior to it. Likely they are one evolving wound. There is a larger area of non blanching surrouding both this and the more lateral DTI. Tricia KIM in room for care. Reported to [place] KIM. Right Lateral Sacrum Pressure Injury Dressing Type: Allevyn Life Dressing Description: Clean/Dry, Intact Exudate Amount: Moderate Exudate Color: Yellow, Brown Exudate Characteristic(s): Thick Integumentary Issue Intervention: Visualized Under Dressing Loretta Wound Tissue: Erythema, Non-blanching Pressure Injury Stage: Deep Tissue Injury (DTI) (1.5x1x0) Pressure Injury Present on Admit: No Skin Integrity Problem Comment: Dark purple base with drainage. Evolving. Thoracic Spine Pressure Injury Dressing Type: Allevyn Life Exudate Amount: None Loretta Wound Tissue: Erythema, Non-blanching (6x2x0) Wound Bed Constitution: Scab Site Measurement - Head-to-Toe Length X Width X Depth (cm): 0.5x0.4xscab Pressure Injury Stage: Stage 2 Pressure Injury Present on Admit: No Skin Integrity Problem Comment: Open area is over most prominent bony outcropping on the patient's thoracic spine. Wound care will follow all the wounds.
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
[2017-04-01] MEDS: levETIRAcetam 500 MG TAB PO SCH ×2 (15:20→21:27)
--- NOTE | 2017-04-01 17:20 | SOAPPROG ---
SOAP Progress Note Assessment/Plan: Assessment: Aspiration pneumonitis/pneumonia: Clinically stable. Bilateral infiltrates present on chest x-ray yesterday. On antibiotics, bronchodilators. Ileus/constipation, possible gastric paresis. Status post PEG tube placement. History of weight loss/failure to thrive. Albumin 1.6. Psychiatric disease: Bipolar. Medications result in significant somnolent at this time. Difficult to sort out whether this is normal for her. Anemia: Hematocrit 28. No evidence of active bleeding. Prophylaxis: Heparin "allergy ", on SCDs. On pantoprazole twice daily. Plan: Continue present bronchopulmonary therapies and antibiotics. Follow x- ray. Continue other medications. Follow laboratory. Subjective: Mental status/lethargy waxing waning secondary to medications. Walked earlier. Objective: Vital Signs Temp Pulse Resp BP Pulse Ox 36.7 C 85 15 84/55 L 98 04/01/17 15:46 04/01/17 15:54 04/01/17 15:54 04/01/17 15:46 04/01/17 15:54 Laboratory Results 04/01/17 04:45 04/01/17 04:45 03/31/17 04/01/17 04/02/17 05:59 05:59 05:59 Intake Total 4710 2618 Output Total 1700 1850 5 Balance 3010 768 -5 PT 13.5 SEC (12.0-15.0) 03/28/17 03:30 INR 1.01 (0.83-1.16) 03/28/17 03:30 Physical Exam - Physical Exam General Appearance: thin, other (Sleepy, arouses weakly at this time.) EENT: PERRL/EOMI, other (Nasal cannula oxygen in place at 3 L) Neck: normal inspection (No JVD) Respiratory: decreased breath sounds (And excursions), rales (Scattered rales posteriorly), wheezing (Some scattered wheezes), No rhonchi Cardiac/Chest: regular rate, rhythm Abdomen: non-tender, soft, other (Peg tube in place. No recent stool), No normal bowel sounds (Decreased, present) Skin: normal color, warm/dry Extremities: No pedal edema Neuro/Psych: no motor/sensory deficits (Moves all extremities), cognition abnormalities (Somnolent currently) ICD10 Worksheet Patient Problems: Problems Problem Status Onset Pneumonia Acute Constipation Acute Seizure Acute Seizure disorder Acute Severe sepsis with septic shock Acute Hospital-acquired pneumonia Acute Hypoxia Acute Bilateral pneumonia Acute Urinary tract infection Acute Vomiting Acute Failure to thrive in adult Acute
--- NOTE | 2017-04-01 18:12 | SOAPPROG ---
SOAP Progress Note Assessment/Plan: Assessment: Plan: 04/01/17 12:56 A/P 1. Weight loss- with nausea and vomiting. S/p IR placed G tube. + Aspiration. At this point recommend, placement of J extension through G tube. Plans for IR placement today. Subjective: cc: Follow up nausea and vomiting Feeling better. Objective: Vital Signs Temp Pulse Resp BP Pulse Ox 36.7 C 85 15 84/55 L 98 04/01/17 15:46 04/01/17 15:54 04/01/17 15:54 04/01/17 15:46 04/01/17 15:54 Laboratory Results 04/01/17 04:45 04/01/17 04:45 03/31/17 04/01/17 04/02/17 05:59 05:59 05:59 Intake Total 4710 2618 900 Output Total 1700 1850 710 Balance 3010 768 190 PT 13.5 SEC (12.0-15.0) 03/28/17 03:30 INR 1.01 (0.83-1.16) 03/28/17 03:30 Physical Exam - Physical Exam General Appearance: alert, no apparent distress EENT: scleral icterus (R), No scleral icterus (L) Respiratory: rhonchi Cardiac/Chest: regular rate, rhythm, No tachycardia, No diastolic murmur, No systolic murmur Abdomen: normal bowel sounds, soft (tender at g tube site.), No non-tender, No distended, No guarding, No rebound Neuro/Psych: normal mood/affect, oriented x 3, No abnormal technical photographer II-XII ICD10 Worksheet Patient Problems: Problems Problem Status Onset Failure to thrive in adult Acute Bilateral pneumonia Acute Constipation Acute Hospital-acquired pneumonia Acute Hypoxia Acute Pneumonia Acute Seizure Acute Seizure disorder Acute Severe sepsis with septic shock Acute Urinary tract infection Acute Vomiting Acute
--- NOTE | 2017-04-01 18:14 | SOAPPROG ---
SOAP Progress Note Assessment/Plan: Assessment: Plan: Objective: Vital Signs Temp Pulse Resp BP Pulse Ox 36.7 C 85 15 84/55 L 98 04/01/17 15:46 04/01/17 15:54 04/01/17 15:54 04/01/17 15:46 04/01/17 15:54 Laboratory Results 04/01/17 04:45 04/01/17 04:45 03/31/17 04/01/17 04/02/17 05:59 05:59 05:59 Intake Total 4710 2618 900 Output Total 1700 1850 710 Balance 3010 768 190 PT 13.5 SEC (12.0-15.0) 03/28/17 03:30 INR 1.01 (0.83-1.16) 03/28/17 03:30 ICD10 Worksheet Patient Problems: Problems Problem Status Onset Pneumonia Acute Constipation Acute Seizure Acute Seizure disorder Acute Severe sepsis with septic shock Acute Hospital-acquired pneumonia Acute Hypoxia Acute Bilateral pneumonia Acute Urinary tract infection Acute Vomiting Acute Failure to thrive in adult Acute
[2017-04-01] MEDS: PANTOPRAZOLE SODIUM 40 MG TAB PO SCH (21:28)
--- NOTE | 2017-04-01 22:45 | HOSPPROG ---
Hospitalist Progress Note Assessment/Plan: 46-year-old female who suffered acute aspiration pneumonia following the placement of a PEG tube. She had acute respiratory failure was placed in the ICU but is now significantly improved. -acute respiratory failure secondary to aspiration post procedure of placement of a PEG tube. The patient is now on 2 L of oxygen is significantly improved and no longer in respiratory distress does maintained on Zosyn and bronchodilators. -gastroparesis with chronic nausea and vomiting: Patient is with GI which finds no other GI pathology other than gastro paresis. She is currently on erythromycin as it is reported she does not tolerate Reglan. Per GI and IR there will be an attempt to convert the PEG tube to a shaken os to be tube in the future. Discussed with IR, Dr Yang and will attempt conversion with GI tomorrow -some is reported at [place]: Patient takes numerous medications and currently is somnolent although she is also described as being quite active in [place]. This is inconsistent and will trying Cindy Fire medications to allow for appropriate mental status and interaction. There is probably an underlying psychiatric disorder -FTT and severe protein caloric malnutrition, albumini 1.6. Will feed today with Jevity per PEG, NPO at midnight for procedure -anemia secondary chronic disease. -UTI, E coli: On Macrobid. Plan -Jevity -GI/IR conversion of PEG to jejunal feeding tube 04/02 -continue pulmonary care, she is improving -mental status improving Subjective: alert and more cooperative. limited verbal response Objective: Vital Signs Temp Pulse Resp BP Pulse Ox 36.8 C 77 18 81/52 L 95 04/01/17 19:37 04/01/17 22:05 04/01/17 22:05 04/01/17 19:37 04/01/17 22:05 Laboratory Results 04/01/17 04:45 04/01/17 04:45 03/31/17 04/01/17 04/02/17 05:59 05:59 05:59 Intake Total 4710 2618 900 Output Total 1700 1850 710 Balance 3010 768 190 PT 13.5 SEC (12.0-15.0) 03/28/17 03:30 INR 1.01 (0.83-1.16) 03/28/17 03:30 - Time Spent With Patient Time Spent with Patient: greater than 35 minutes Time Spent with Patient: Greater than 35 minutes spent on this patients care, greater than 50% of time spent counseling, educating, and coordinating care regarding the above mentioned plan. - Physical Exam Constitutional: no apparent distress Eyes: PERRL Ears, Nose, Mouth, Throat: moist mucous membranes, hearing normal, ears appear normal, no oral mucosal ulcers Cardiovascular: regular rate and rhythym, no murmur, rub, or gallop Respiratory: reduced air movement, inspiratory crackles, rhonchi Gastrointestinal: normoactive bowel sounds, soft, non-tender abdomen, other ( PEG in plance) Genitourinary: no bladder fullness Skin: warm Neurologic: CN II-XII Intact Psychiatric: other (slow to respond yet appropriate and cooperative) ICD10 Worksheet Patient Problems: Problems Problem Status Onset Pneumonia Acute Constipation Acute Seizure Acute Seizure disorder Acute Severe sepsis with septic shock Acute Hospital-acquired pneumonia Acute Hypoxia Acute Bilateral pneumonia Acute Urinary tract infection Acute Vomiting Acute Failure to thrive in adult Acute
[2017-04-02] MEDS: levETIRAcetam 500 MG TAB PO SCH ×3 (05:01→22:25)
[2017-04-02] MEDS: SUCRALFATE 1 GM/10 ML UDCUP PO SCH ×4 (05:01→22:26)
[2017-04-02] MEDS: PIPERACILLIN/TAZO 3.375 GM/DEX 50 ML IV SCH ×3 (05:01→17:39)
[2017-04-02 05:11] LABS: PLATELET COUNT 172 10^3/uL (150-400)
[2017-04-02] MEDS: oxyCODONE IR 5 MG TAB PO PRN ×3 (05:47→22:41)
[2017-04-02] MEDS: IPRATROPIUM/ALBUTEROL 3 ML DEYVIAL IH SCH ×4 (06:19→21:55)
[2017-04-02] MEDS: LUBIPROSTONE 24 MCG CAP PO SCH ×2 (09:28→22:25)
[2017-04-02] MEDS: PREGABALIN 100 MG CAP PO SCH ×3 (09:29→22:25)
[2017-04-02] MEDS: QUEtiapine FUMARATE 300 MG TAB PO SCH ×3 (09:29→22:25)
[2017-04-02] MEDS: SENNOSIDES/DOCUSATE SODIUM TAB PO SCH ×2 (09:29→22:25)
[2017-04-02] MEDS: PANTOPRAZOLE SODIUM 40 MG TAB PO SCH ×2 (09:29→22:26)
[2017-04-02] MEDS: DIVALPROEX NA 500 MG TAB PO SCH ×2 (09:29→15:27)
[2017-04-02] MEDS: NICOTINE 21 MG/24 HR PATCH TD SCH (09:32)
[2017-04-02] MEDS: NS 1,000 ML IV SCH (09:36)
--- NOTE | 2017-04-02 10:38 | SOAPPROG ---
SOAP Progress Note Assessment/Plan: Assessment: Weight loss N/V s/p G tube complicated by aspiration. Consider extension of G tube to J tube. Suspect this would be technically very difficult. Plan: Recommend monitor over week end for continued improvement If not better consider Conversion of G tube to J tube on Tuesday with Dr. Wilkinson Subjective: CC n/v First time seeing patient but she states doing better. Objective: Vital Signs Temp Pulse Resp BP Pulse Ox 36.9 C 92 18 85/56 L 90 L 04/02/17 07:19 04/02/17 07:19 04/01/17 23:28 04/02/17 07:19 04/02/17 07:19 Laboratory Results 04/02/17 04:56 04/02/17 04:56 04/01/17 04/02/17 04/03/17 05:59 05:59 05:59 Intake Total 2618 900 Output Total 1850 750 Balance 768 150 PT 13.5 SEC (12.0-15.0) 03/28/17 03:30 INR 1.01 (0.83-1.16) 03/28/17 03:30 Physical Exam - Physical Exam General Appearance: no apparent distress Respiratory: decreased breath sounds Cardiac/Chest: regular rate, rhythm Abdomen: non-tender ICD10 Worksheet Patient Problems: Problems Problem Status Onset Failure to thrive in adult Acute Bilateral pneumonia Acute Constipation Acute Hospital-acquired pneumonia Acute Hypoxia Acute Pneumonia Acute Seizure Acute Seizure disorder Acute Severe sepsis with septic shock Acute Urinary tract infection Acute Vomiting Acute
[2017-04-02] MEDS: DIVALPROEX NA 250 MG TAB PO SCH ×3 (10:41→15:27)
[2017-04-02] MEDS: ALPRAZolam 0.25 MG TAB PO PRN ×2 (10:46→17:39)
[2017-04-02] MEDS: POLYETHYLENE GLYCOL 3350 17 GM PKT PO SCH (11:35)
[2017-04-02] MEDS ORDERED: PROTOCOL POTASSIUM 1 DOSE MISC PRN (13:41)
[2017-04-02] MEDS ORDERED: PROTOCOL CALCIUM 1 DOSE IV PRN (13:41)
[2017-04-02] MEDS ORDERED: POTASSIUM CL 10 MEQ TAB PO ONE ×2 (15:05→23:30)
--- NOTE | 2017-04-02 15:32 | HOSPPROG ---
Hospitalist Progress Note Assessment/Plan: 46-year-old female who suffered acute aspiration pneumonia following the placement of a PEG tube. She had acute respiratory failure was placed in the ICU but is now significantly improved. -acute respiratory failure secondary to aspiration post procedure of placement of a PEG tube. The patient is now on 2 L of oxygen is significantly improved and no longer in respiratory distress does maintained on Zosyn and bronchodilators. -gastroparesis with chronic nausea and vomiting: Patient is with GI which finds no other GI pathology other than gastro paresis. She is currently on erythromycin as it is reported she does not tolerate Reglan. Per GI and IR there will be an attempt to convert the PEG tube to a jejunal tube in the future. GI reports they will attempt conversion on 04/04. -some is reported at [place]: Patient takes numerous medications and currently is somnolent although she is also described as being quite active in [place]. This is inconsistent and will trying Cindy Fire medications to allow for appropriate mental status and interaction. There is probably an underlying psychiatric disorder. Behavior currently is cooperative may without agitation. I do not believe she requires any additional said it is. -FTT and severe protein caloric malnutrition, albumini 1.6. Jevity per dietary consultation. Will attempt conversion to a jejunal tube on 04/04 -anemia secondary chronic disease. -UTI, E coli: On Macrobid. Plan -Jevity -GI/IR conversion of PEG to jejunal feeding tube 04/02 -continue pulmonary care, she is improving -mental status improving Subjective: No complaints Objective: Vital Signs Temp Pulse Resp BP Pulse Ox 36.8 C 112 H 18 95/61 L 86 L 04/02/17 10:59 04/02/17 10:59 04/02/17 10:59 04/02/17 10:59 04/02/17 10:59 Laboratory Results 04/02/17 04:56 04/02/17 04:56 04/01/17 04/02/17 04/03/17 05:59 05:59 05:59 Intake Total 2618 900 Output Total 1850 750 100 Balance 768 150 -100 PT 13.5 SEC (12.0-15.0) 03/28/17 03:30 INR 1.01 (0.83-1.16) 03/28/17 03:30 - Time Spent With Patient Time Spent with Patient: greater than 35 minutes Time Spent with Patient: Greater than 35 minutes spent on this patients care, greater than 50% of time spent counseling, educating, and coordinating care regarding the above mentioned plan. - Pending Discharge Pending Discharge Within 24 Hours: No Pending Discharge Within 48 Hours: No - Physical Exam Constitutional: no apparent distress, cachectic Eyes: PERRL, anicteric sclera Ears, Nose, Mouth, Throat: moist mucous membranes, hearing normal Cardiovascular: regular rate and rhythym, no murmur, rub, or gallop Respiratory: no respiratory distress, reduced air movement, inspiratory crackles , bronchial breath sounds, rhonchi Gastrointestinal: normoactive bowel sounds, soft, non-tender abdomen, other ( Peg tube in place without inflammation) Genitourinary: no bladder fullness Skin: warm Musculoskeletal: generalized weakness Neurologic: AAOx3, CN II-XII Intact Psychiatric: interacting appropriately ICD10 Worksheet Patient Problems: Problems Problem Status Onset Pneumonia Acute Constipation Acute Seizure Acute Seizure disorder Acute Severe sepsis with septic shock Acute Hospital-acquired pneumonia Acute Hypoxia Acute Bilateral pneumonia Acute Urinary tract infection Acute Vomiting Acute Failure to thrive in adult Acute
[2017-04-03] MEDS: NS 1,000 ML IV SCH (00:42)
[2017-04-03] MEDS: PIPERACILLIN/TAZO 3.375 GM/DEX 50 ML IV SCH ×4 (00:43→17:37)
[2017-04-03] MEDS: oxyCODONE IR 5 MG TAB PO PRN ×3 (02:19→22:00)
[2017-04-03] MEDS: IPRATROPIUM/ALBUTEROL 3 ML DEYVIAL IH SCH ×4 (06:37→20:09)
[2017-04-03] MEDS: levETIRAcetam 500 MG TAB PO SCH ×3 (06:38→21:19)
[2017-04-03] MEDS: SUCRALFATE 1 GM/10 ML UDCUP PO SCH ×4 (06:38→21:20)
[2017-04-03] MEDS: LUBIPROSTONE 24 MCG CAP PO SCH ×2 (08:12→21:20)
[2017-04-03] MEDS: POLYETHYLENE GLYCOL 3350 17 GM PKT PO SCH (08:12)
[2017-04-03] MEDS: NICOTINE 21 MG/24 HR PATCH TD SCH (08:12)
[2017-04-03] MEDS: PREGABALIN 100 MG CAP PO SCH ×3 (08:13→21:19)
[2017-04-03] MEDS: QUEtiapine FUMARATE 300 MG TAB PO SCH ×3 (08:13→21:19)
[2017-04-03] MEDS: DIVALPROEX NA 500 MG TAB PO SCH ×2 (08:13→15:32)
[2017-04-03] MEDS: DIVALPROEX NA 250 MG TAB PO SCH ×3 (08:14→15:32)
[2017-04-03] MEDS: SENNOSIDES/DOCUSATE SODIUM TAB PO SCH ×2 (08:14→21:19)
[2017-04-03] MEDS: PANTOPRAZOLE SODIUM 40 MG TAB PO SCH ×2 (08:14→21:19)
[2017-04-03] MEDS: ALPRAZolam 0.25 MG TAB PO PRN ×2 (08:14→15:38)
--- NOTE | 2017-04-03 17:27 | HOSPPROG ---
Hospitalist Progress Note Assessment/Plan: 46-year-old female who suffered acute aspiration pneumonia following the placement of a PEG tube. She had acute respiratory failure, was in the ICU, and has been transferred to the floor as she is improved on 2 L nasal prong oxygen. Today I found her somnolent with significant decreased breath sounds in the right base. An ABG and chest x-ray been ordered with a chest x-ray showing increasing consolidation of the right lower lobe. Her somnolence is unexplained as she received medication 6 hr prior to my exam at 1500 hr. -acute respiratory failure secondary to aspiration post procedure of placement of a PEG tube. Currently the patient is somnolent for unknown reasons but oxygenating in adequately on 2-3 L. chest x-ray shows increasing consolidation of the right lower lobe. ABG has been ordered and she is encouraged to walk cough and deep breathe an use incentive spirometer. Today she is somnolent and hard to arouse; CXR shows increased consolidation of RLL. Plan: -decrease meds as noted below -encourage cough and deep breathing, out of bed with PT -gastroparesis with chronic nausea and vomiting: Patient is with GI which finds no other GI pathology other than gastro paresis. She is currently on erythromycin as it is reported she does not tolerate Reglan. Per GI and IR there will be an attempt to convert the PEG tube to a jejunal tube on April 04. See GI consultation notes. -somnolence has been reported at [place] her current place of residence. today she is again somnolent, hard to arouse. Plan: -stop xanax -decrease seroquel from 300mg tid to 300mg daily -decrease oxycodone Ir from 5-10 q4h to 5mg q6h prn -FTT and severe protein caloric malnutrition, albumini 1.6. Jevity per dietary consultation. Will attempt conversion to a jejunal tube on 04/04. Dietary has been consulted yet no nutrition has been given per the planned GI procedure on April 04. -anemia secondary chronic disease. -UTI, E coli: On Macrobid. Plan -Jevity -GI/IR conversion of PEG to jejunal feeding tube 04/04 -continue pulmonary care, and follow the chest x-ray encouraging cough deep breathing and use of incentive spirometer. -PT evaluation and encourage the patient to walk and be out of bed. -watch for agitation with decrease of meds as noted above Subjective: Patient is somnolent and my exam at 1500 hr an ABG and chest x-ray have been ordered. Her somnolence is unexplained as she is not receive sedative medication for over 6 hr. Objective: Vital Signs Temp Pulse Resp BP Pulse Ox 36.6 C 98 16 93/57 L 100 04/03/17 15:59 04/03/17 15:59 04/03/17 15:59 04/03/17 15:59 04/03/17 15:59 Laboratory Results 04/02/17 04:56 04/03/17 05:27 04/02/17 04/03/17 04/04/17 05:59 05:59 05:59 Intake Total 900 1945 Output Total 750 100 Balance 150 1845 PT 13.5 SEC (12.0-15.0) 03/28/17 03:30 INR 1.01 (0.83-1.16) 03/28/17 03:30 - Time Spent With Patient Time Spent with Patient: greater than 35 minutes Time Spent with Patient: Greater than 35 minutes spent on this patients care, greater than 50% of time spent counseling, educating, and coordinating care regarding the above mentioned plan. - Pending Discharge Pending Discharge Within 24 Hours: No Pending Discharge Within 48 Hours: No - Physical Exam Constitutional: chronically ill appearing, cachectic Eyes: PERRL, anicteric sclera Ears, Nose, Mouth, Throat: moist mucous membranes, other (Somnolent during my exam) Cardiovascular: regular rate and rhythym, no murmur, rub, or gallop Respiratory: reduced air movement, inspiratory crackles, bronchial breath sounds , dullness to percussion, rhonchi Gastrointestinal: normoactive bowel sounds, soft, non-tender abdomen, no palpable masses Genitourinary: no bladder fullness Skin: warm Musculoskeletal: generalized weakness Neurologic: other (Somnolent and hard to arouse) ICD10 Worksheet Patient Problems: Problems Problem Status Onset Failure to thrive in adult Acute Bilateral pneumonia Acute Constipation Acute Hospital-acquired pneumonia Acute Hypoxia Acute Pneumonia Acute Seizure Acute Seizure disorder Acute Severe sepsis with septic shock Acute Urinary tract infection Acute Vomiting Acute
[2017-04-03] MEDS ORDERED: POTASSIUM CL 10 MEQ TAB PO ONE (21:04)
[2017-04-04] MEDS: PIPERACILLIN/TAZO 3.375 GM/DEX 50 ML IV SCH ×4 (00:39→18:46)
[2017-04-04] MEDS: levETIRAcetam 500 MG TAB PO SCH ×2 (04:59→14:42)
[2017-04-04] MEDS: oxyCODONE IR 5 MG TAB PO PRN ×2 (04:59→18:52)
[2017-04-04] MEDS: SUCRALFATE 1 GM/10 ML UDCUP PO SCH ×3 (05:00→18:56)
[2017-04-04] MEDS: NS 1,000 ML IV SCH (05:00)
[2017-04-04 05:32] LABS: PLATELET COUNT 180 10^3/uL (150-400)
[2017-04-04] MEDS ORDERED: oxyCODONE IR 5 MG TAB PO PRN (05:34)
[2017-04-04] MEDS: IPRATROPIUM/ALBUTEROL 3 ML DEYVIAL IH SCH ×5 (06:32→20:20)
[2017-04-04] MEDS: PANTOPRAZOLE SODIUM 40 MG TAB PO SCH (08:17)
[2017-04-04] MEDS: DIVALPROEX NA 250 MG TAB PO SCH ×3 (08:17→18:46)
[2017-04-04] MEDS: DIVALPROEX NA 500 MG TAB PO SCH ×2 (08:17→18:46)
[2017-04-04] MEDS: PREGABALIN 100 MG CAP PO SCH ×2 (08:17→18:45)
[2017-04-04] MEDS: QUEtiapine FUMARATE 300 MG TAB PO SCH ×2 (08:17→18:56)
[2017-04-04] MEDS: NICOTINE 21 MG/24 HR PATCH TD SCH (08:18)
[2017-04-04] MEDS: POLYETHYLENE GLYCOL 3350 17 GM PKT PO SCH (08:21)
[2017-04-04] MEDS: LUBIPROSTONE 24 MCG CAP PO SCH (09:58)
[2017-04-04] MEDS: SENNOSIDES/DOCUSATE SODIUM TAB PO SCH (09:59)
[2017-04-04] MEDS ORDERED: D10W 1,000 ML IV PRN (11:10)
[2017-04-04 13:20] LABS: PLATELET COUNT 168 10^3/uL (150-400)
[2017-04-04 13:44] LABS: INR 1.02 (0.83-1.16); PROTIME(PATIENT) 13.6 SEC (12.0-15.0)
[2017-04-04] MEDS ORDERED: POTASSIUM Cl (KCl) 50 ML IV SCH (15:00)
[2017-04-04] MEDS ORDERED: D10W 250 ML IV PRN (15:08)
[2017-04-04] MEDS ORDERED: LR 1,000 ML IV ONE (16:04)
[2017-04-04] MEDS ORDERED: PROPOFOL/EMULSION 500 MG/50 ML BOTTLE IV ONE (16:15)
[2017-04-04] MEDS ORDERED: ALBUMIN 5% 250 ML BOTTLE IV ONE (16:21)
--- NOTE | 2017-04-04 16:34 | PDANEPAE ---
ANE Past Medical History - Cardiovascular History Hx Hypertension: No Hx Arrhythmias: No Hx Chest Pain: No Hx Coronary Artery / Peripheral Vascular Disease: No Hx CHF / Valvular Disease: No Hx Palpitations: No - Pulmonary History Hx COPD: No Hx Asthma/Reactive Airway Disease: No Hx Recent Upper Respiratory Infection: No Hx Oxygen in Use at Home: No Hx Sleep Apnea: No Sleep Apnea Screening Result - Last Documented: Negative Pulmonary History Comment: Patient has had increasing O2 requirement while in the hospital. - Endocrine History Hx Diabetes: No Hypothyroid: No Hyperthyroid: No Obesity: no - Renal History Hx Renal Disorders: No - Liver History Hx Hepatic Disorders: No - Neurological & Psychiatric Hx Hx Neurological and Psychiatric Disorders: Yes Neurological / Psychiatric History Comment: Seizure DO - not otherwise described. Documented psychiatric issues - GI History Gastrointestinal History Comment: Constant nausea and throws up food she ingests. - Chronic Pain History Chronic Pain: Yes ANE Review of Systems Review of Systems: - Exercise capacity METS (RN): 4 METS ANE Patient History - Allergies Allergies/Adverse Reactions: heparin Allergy (Verified 03/25/17 13:31) affects my platelets iodine Allergy (Verified 03/25/17 13:31) oral contrast Allergy (Uncoded 03/25/17 13:31) - Home Medications Home Medications: Acetaminophen [Tylenol 325mg (*)] 650 mg PO TID 03/25/17 [Last Taken Unknown] Dicyclomine [Bentyl 10 MG (*)] 10 mg PO QID PRN 03/25/17 [Last Taken Unknown] Divalproex [Depakote 250 MG (RX)] 250 mg PO DAILY@08,12,16 03/25/17 [Last Taken 03/25/17 750mg AT 08] Divalproex [Depakote 500 MG (RX)] 500 mg PO DAILY@08,16 03/25/17 [Last Taken 08/05 750 mg AT 08] Docusate Sodium [Colace 100 MG (*)] 100 mg PO BID 03/25/17 [Last Taken 03/25/17] Herbals/Supplements -Info Only 1 ea PO DAILY 03/25/17 [Last Taken Unknown] Lubiprostone [Amitiza 24 mcg (*)] 24 mcg PO BID 03/25/17 [Last Taken Unknown] Multivitamins [Multivitamin (*)] 1 each PO DAILY 03/25/17 [Last Taken Unknown] Pantoprazole Sodium [Protonix 40mg (*)] 40 mg PO BID 03/25/17 [Last Taken Unknown] Pregabalin [Lyrica] 200 mg PO TID 03/25/17 [Last Taken 03/25/17] QUEtiapine FUMARATE [Seroquel 300mg (*)] 300 mg PO TID 03/25/17 [Last Taken 08/05] Sucralfate [Carafate 1gm/10ml Oral Liquid (*)] 1 gm PO QID PRN 03/25/17 [Last Taken Unknown] Tiotropium Inhaler [Spiriva Handihaler] 90 mcg IH DAILY 03/25/17 [Last Taken 08/05] levETIRAcetam [Keppra 500 mg (*)] 500 mg PO TID 03/25/17 [Last Taken 03/25/17] rOPINIRole HCL [Requip 2mg (*)] 2 mg PO HS 03/25/17 [Last Taken 03/24/17] - NPO status NPO Since - Liquids (Date): 04/04/17 NPO Since - Liquids (Time): 12:00 NPO Since - Solids (Date): 04/04/17 NPO Since - Solids (Time): 12:00 - Smoking Hx Smoking Status: Current every day smoker - Alcohol Use Alcohol Use: Sober ANE Labs/Vital Signs - Labs Result Diagrams: 04/04/17 13:10 04/04/17 13:10 - Vital Signs Blood Pressure: 88/60 Heart Rate: 85 Respiratory Rate: 18 O2 Sat (%): 4 Height: 170.18 cm Weight: 49 kg ANE Physical Exam - Airway Neck exam: FROM Mallampati Score: Class 1 Mouth exam: dentures - Pulmonary Pulmonary: no respiratory distress, no rales or rhonchi, reduced air movement - Cardiovascular Cardiovascular: regular rate and rhythym, no murmur, rub, or gallop - ASA Status ASA Status: IV ANE Anesthesia Plan Anesthesia Plan: GA with mask
[2017-04-04] MEDS ORDERED: LR 500 ML IV PRN (16:35)
[2017-04-04] MEDS ORDERED: epHEDrine SULFATE 10 MG/ML SYR IVP PRN (16:35)
[2017-04-04] MEDS ORDERED: ALBUTEROL 3 ML DEYVIAL IH PRN (16:35)
[2017-04-04] MEDS ORDERED: PHENYLEPHRINE HCL 100 MCG/ML SYR IVP PRN (16:35)
[2017-04-04] MEDS ORDERED: NALOXONE HCL 0.4 MG/ML INJ IVP PRN ×2 (16:35→17:42)
[2017-04-04] MEDS ORDERED: ONDANSETRON 4 MG/2 ML VIAL IVP PRN (16:35)
--- NOTE | 2017-04-04 16:57 | POSTANESTH ---
Post Anesthetic Evaluation Cardiovascular Status: Normal, Stable, Similar to Pre-Op Cond Respiratory Status: Normal, Stable, Similar to Pre-op Cond. Level of Consciousness/Mental Status: Can Participate in Eval, Mildly Sleepy, Arousable Pain Control: Adequate, Prn Tx Ordered Nausea/Vomiting Control: Adequate, Prn Tx Ordered Complications Possibly Related to Anesthesia: None Noted
[2017-04-04] MEDS ORDERED: fentaNYL 100 MCG/2 ML INJ ONE (17:05)
[2017-04-04] MEDS ORDERED: PROMETHAZINE HCL 25 MG/ML INJ ONE (17:05)
[2017-04-04] MEDS: fentaNYL 100 MCG/2 ML INJ IVP PRN ×2 (17:10→17:22)
[2017-04-04] MEDS ORDERED: PROTOCOL K PHOSPHATE 1 DOSE IV PRN (17:39)
[2017-04-04] MEDS ORDERED: PROMETHAZINE HCL 25 MG/ML INJ IVP PRN (17:42)
[2017-04-04] MEDS ORDERED: DEXAMETHASONE 4 MG/ML VIAL IVP PRN (17:42)
--- NOTE | 2017-04-04 17:44 | HOSPPROG ---
Hospitalist Progress Note Assessment/Plan: * Severe gastroparesis s/p G-tube -not tolerating tube feeds - tube persistently to suction - s/p aspiration -likely needs conversion to J-tube * Ileus -keep NPO * Aspiration PNA after PEG placement -IV Zosyn * Severe protein calorie malnutrition -start TPN * s/p acute respiratory failure * Somnolence - resolved -DC Xanax * E coli UTI - s/p macrobid * TBI/seizure disorder -Keppra * Bipolar -Seroquel, Depakote * PUD s/p Billroth II with Kaleb en Y -PPI -s/p H pylori tx * Tobacco/THC dependence -nicotine patch Subjective: Gtube to suction - hasn't eaten since admission Objective: Vital Signs Temp Pulse Resp BP Pulse Ox 36.7 C 85 18 88/60 L 4 L 04/04/17 16:50 04/04/17 16:34 04/04/17 16:34 04/04/17 16:34 04/04/17 16:34 Laboratory Results 04/04/17 13:10 04/04/17 13:10 04/03/17 04/04/17 04/05/17 05:59 05:59 05:59 Intake Total 1945 1100 Output Total 100 325 Balance 1845 775 PT 13.6 SEC (12.0-15.0) 04/04/17 13:10 INR 1.02 (0.83-1.16) 04/04/17 13:10 AXR viewed, my personal interpretation is - significant ileus CXR - positive infiltrate - Physical Exam Constitutional: no apparent distress, appears nourished, not in pain Cardiovascular: regular rate and rhythym, no murmur, rub, or gallop Respiratory: no respiratory distress, no rales or rhonchi, clear to auscultation Gastrointestinal: no palpable masses, tenderness, distension, No guarding, No rebound Skin: no rashes or abrasions, no fluctuance, no induration Neurologic: AAOx3, sensation intact bilaterally Psychiatric: interacting appropriately, not anxious, not encephalopathic, thought process linear ICD10 Worksheet Patient Problems: Problems Problem Status Onset Failure to thrive in adult Acute Bilateral pneumonia Acute Constipation Acute Hospital-acquired pneumonia Acute Hypoxia Acute Pneumonia Acute Seizure Acute Seizure disorder Acute Severe sepsis with septic shock Acute Urinary tract infection Acute Vomiting Acute
[2017-04-04] MEDS: POTASSIUM Cl (KCl) 10 MEQ in NS 50 ML IV SCH ×3 (20:03→22:02)
[2017-04-04] MEDS: TPN 1 EA BAG IV SCH (22:02)
[2017-04-05] MEDS: oxyCODONE IR 5 MG TAB PO PRN ×6 (00:06→22:35)
[2017-04-05] MEDS: LUBIPROSTONE 24 MCG CAP PO SCH ×3 (00:07→22:00)
[2017-04-05] MEDS: PANTOPRAZOLE SODIUM 40 MG TAB PO SCH ×3 (00:08→22:00)
[2017-04-05] MEDS: SENNOSIDES/DOCUSATE SODIUM TAB PO SCH ×3 (00:09→22:02)
[2017-04-05] MEDS: SUCRALFATE 1 GM/10 ML UDCUP PO SCH ×5 (00:09→22:03)
[2017-04-05] MEDS: PIPERACILLIN/TAZO 3.375 GM/DEX 50 ML IV SCH ×4 (00:10→17:40)
[2017-04-05] MEDS: levETIRAcetam 500 MG TAB PO SCH ×4 (00:10→21:59)
[2017-04-05] MEDS: PREGABALIN 100 MG CAP PO SCH ×4 (00:10→21:59)
[2017-04-05] MEDS: QUEtiapine FUMARATE 300 MG TAB PO SCH ×4 (00:10→21:59)
[2017-04-05] MEDS: IPRATROPIUM/ALBUTEROL 3 ML DEYVIAL IH SCH ×4 (05:50→21:26)
[2017-04-05 06:21] LABS: PLATELET COUNT 192 10^3/uL (150-400)
[2017-04-05 06:39] LABS: INR 1.03 (0.83-1.16); PROTIME(PATIENT) 13.7 SEC (12.0-15.0)
[2017-04-05] MEDS ORDERED: POTASSIUM CL 10 MEQ TAB PO ONE ×2 (08:00→20:01)
[2017-04-05] MEDS ORDERED: CALCIUM GLUCONATE 50 ML IV ONE (08:00)
[2017-04-05] MEDS: DIVALPROEX NA 500 MG TAB PO SCH ×2 (08:04→16:38)
[2017-04-05] MEDS: DIVALPROEX NA 250 MG TAB PO SCH ×3 (08:04→16:31)
[2017-04-05] MEDS: NICOTINE 21 MG/24 HR PATCH TD SCH (08:05)
--- NOTE | 2017-04-05 08:23 | WOCRNPDOC ---
WOCRN Advanced Assessment Note - Skin Integrity Problem, Advanced Assess Right Sacrum Pressure Injury Dressing Type: Allevyn Life Dressing Description: Intact Integumentary Issue Intervention: Visualized Under Dressing Loretta Wound Tissue: Blanching, Ecchymotic (evolving DTI to the left of this wound ) Loretta Wound Swelling: Mild Wound Bed Color: Red Wound Bed Constitution: Red/[place] - Non Granular Tissue (100%) Site Odor: None Pressure Injury Stage: Stage 3 Pressure Injury Present on Admit: No Skin Integrity Problem Comment: Evolving, full-thickness wound on R sacrum w/ small open area of non-granulating tissue w/ surrounding ecchymosis, previously documented as a stage 3. Some ecchymotic tissue surrounding the wound. Will continue w/ current tx. Reinforced turning side to side w/ patient. Patient on P500 bed. Right Lateral Sacrum Pressure Injury Dressing Type: Allevyn Life Dressing Description: Intact Exudate Amount: Minimal Exudate Color: Reddish/Yellow Exudate Characteristic(s): Serosanguinous Integumentary Issue Intervention: Visualized Under Dressing Loretta Wound Tissue: Blanching, Ecchymotic, Erythema Loretta Wound Swelling: Mild Wound Bed Color: Red, Yellow Wound Bed Constitution: Red/[place] - Non Granular Tissue, Adhered Slough Pressure Injury Stage: Unstageable (evolving dti, now open) Pressure Injury Present on Admit: No Skin Integrity Problem Comment: Evolving deep tissue injury on R lateral sacrum , previously intact, now open w/ adhered layer of slough/biofilm. Thin rim of ecchymosis surrounding the wound. Blanching erythema throughout periwound tissue. Will continue w/ current tx, including P500 bed and turns q2. Thoracic Spine Pressure Injury Dressing Type: Allevyn Life Dressing Description: Clean/Dry, Intact Exudate Amount: None Exudate Characteristic(s): None Integumentary Issue Intervention: Visualized Under Dressing Loretta Wound Tissue: Blanching, Intact Loretta Wound Swelling: None Wound Bed Color: Brown Wound Bed Constitution: Scab Site Odor: None Pressure Injury Stage: Stage 2 Pressure Injury Present on Admit: No Skin Integrity Problem Comment: Small, adhered scab noted on upper back to the left of the vertebrae. Periwound skin is intact and blanching throughout. Site re-covered w/ existing Allevyn. Continue w/ protective dressing and pressure- relieving interventions.
[2017-04-05] MEDS: POLYETHYLENE GLYCOL 3350 17 GM PKT PO SCH (09:38)
--- NOTE | 2017-04-05 11:57 | SOAPPROG ---
SOAP Progress Note Assessment/Plan: Assessment: S/P conversion of G tube to J tube endoscopically Plan: OK to use J tube. Tube feeds to meet nutrition needs per nutrition eval OK to take PO as well as tolerated No further GI recs will sign off for now GI follow up as outpatient 04/05/17 11:54 Subjective: CC n/v Pt feels better wants to try so po Objective: Vital Signs Temp Pulse Resp BP Pulse Ox 36.7 C 81 16 90/59 L 96 04/05/17 11:50 04/05/17 11:50 04/05/17 11:50 04/05/17 11:50 04/05/17 11:50 Laboratory Results 04/05/17 05:35 04/05/17 05:35 04/04/17 04/05/17 04/06/17 05:59 05:59 05:59 Intake Total 1100 1460 Output Total 325 600 Balance 775 860 PT 13.7 SEC (12.0-15.0) 04/05/17 05:35 INR 1.03 (0.83-1.16) 04/05/17 05:35 Physical Exam - Physical Exam General Appearance: WD/WN, no apparent distress Respiratory: normal breath sounds Cardiac/Chest: regular rate, rhythm Abdomen: non-tender, soft ICD10 Worksheet Patient Problems: Problems Problem Status Onset Failure to thrive in adult Acute Bilateral pneumonia Acute Constipation Acute Hospital-acquired pneumonia Acute Hypoxia Acute Pneumonia Acute Seizure Acute Seizure disorder Acute Severe sepsis with septic shock Acute Urinary tract infection Acute Vomiting Acute
--- NOTE | 2017-04-05 14:25 | ASMTCMCOM ---
CM Note CM Note Notes: Chart reviewed. Spoke with MD who will start TPN tonight. Patient not medically ready for discharge to SNF. CM to follow. Date Signed: 04/04/2017 11:33 AM Electronically Signed By:Juliette Santos RN
--- NOTE | 2017-04-05 14:29 | ASMTCMCOM ---
CM Note CM Note Notes: Chart reviewed. G tube converted to j tube. Tube feeding begun. Met with patient who is very willing to return to [facility] when medically stable for discharge, she is requesting magazines (cooking) and possible a set of headphone to listen to music. I will try to find a magazine for her. CM to follow. Plan to [facility] when medically stable. Date Signed: 04/05/2017 02:28 PM Electronically Signed By:Juliette Santos RN
[2017-04-05] MEDS: NS 1,000 ML IV SCH (15:09)
[2017-04-05] MEDS ORDERED: K PHOS 10 MMOL in D5W 250 ML IV ONE (16:30)
--- NOTE | 2017-04-05 16:42 | HOSPPROG ---
Hospitalist Progress Note Assessment/Plan: * Severe gastroparesis s/p J-tube -start tube feeds -watch for refeeding syndrome * Ileus -resolved - good BM this am * Aspiration PNA after PEG placement -IV Zosyn * Severe protein calorie malnutrition -TPN until TF established * s/p acute respiratory failure * Somnolence - resolved -DC Xanax * E coli UTI - s/p macrobid * TBI/seizure disorder -Keppra * Bipolar -Seroquel, Depakote * PUD s/p Billroth II with Kaleb en Y -PPI -s/p H pylori tx * Tobacco/THC dependence -nicotine patch Subjective: No new complaints. Objective: Vital Signs Temp Pulse Resp BP Pulse Ox 36.7 C 81 16 90/59 L 96 04/05/17 11:50 04/05/17 11:50 04/05/17 11:50 04/05/17 11:50 04/05/17 11:50 Laboratory Results 04/05/17 05:35 04/05/17 05:35 04/04/17 04/05/17 04/06/17 05:59 05:59 05:59 Intake Total 1100 1460 Output Total 325 600 Balance 775 860 PT 13.7 SEC (12.0-15.0) 04/05/17 05:35 INR 1.03 (0.83-1.16) 04/05/17 05:35 - Physical Exam Constitutional: no apparent distress, appears nourished, not in pain Cardiovascular: regular rate and rhythym, no murmur, rub, or gallop Respiratory: no respiratory distress, no rales or rhonchi, clear to auscultation Gastrointestinal: normoactive bowel sounds, soft, non-tender abdomen, no palpable masses Skin: no rashes or abrasions, no fluctuance, no induration Neurologic: AAOx3, sensation intact bilaterally Psychiatric: interacting appropriately, not anxious, not encephalopathic, thought process linear ICD10 Worksheet Patient Problems: Problems Problem Status Onset Failure to thrive in adult Acute Bilateral pneumonia Acute Constipation Acute Hospital-acquired pneumonia Acute Hypoxia Acute Pneumonia Acute Seizure Acute Seizure disorder Acute Severe sepsis with septic shock Acute Urinary tract infection Acute Vomiting Acute
[2017-04-05] MEDS: TPN 1 EA BAG IV SCH (21:50)
[2017-04-06] MEDS ORDERED: NS 500 ML IV ONE (00:32)
[2017-04-06] MEDS: PIPERACILLIN/TAZO 3.375 GM/DEX 50 ML IV SCH ×3 (00:41→12:29)
[2017-04-06] MEDS ORDERED: PROMETHAZINE HCL 25 MG/ML INJ IVP PRN (01:04)
[2017-04-06] MEDS: oxyCODONE IR 5 MG TAB PO PRN ×5 (02:28→20:31)
[2017-04-06] MEDS: levETIRAcetam 500 MG TAB PO SCH ×3 (05:34→21:02)
[2017-04-06 05:54] LABS: PLATELET COUNT 153 10^3/uL (150-400)
[2017-04-06] MEDS: SUCRALFATE 1 GM/10 ML UDCUP PO SCH ×4 (05:59→20:59)
[2017-04-06] MEDS: IPRATROPIUM/ALBUTEROL 3 ML DEYVIAL IH SCH ×3 (05:59→15:30)
[2017-04-06 06:07] LABS: INR 1.02 (0.83-1.16); PROTIME(PATIENT) 13.6 SEC (12.0-15.0)
[2017-04-06 07:43] LABS: HIV TYPE 1 AND 2 NEGATIVE (NEGATIVE)
[2017-04-06] MEDS: DIVALPROEX NA 500 MG TAB PO SCH ×2 (09:11→16:29)
[2017-04-06] MEDS: DIVALPROEX NA 250 MG TAB PO SCH ×3 (09:12→16:29)
[2017-04-06] MEDS: PREGABALIN 100 MG CAP PO SCH ×3 (09:13→21:02)
[2017-04-06] MEDS: PANTOPRAZOLE SODIUM 40 MG TAB PO SCH ×2 (09:13→20:50)
[2017-04-06] MEDS: QUEtiapine FUMARATE 300 MG TAB PO SCH ×3 (09:13→21:02)
[2017-04-06] MEDS: NICOTINE 21 MG/24 HR PATCH TD SCH (09:14)
[2017-04-06] MEDS: LUBIPROSTONE 24 MCG CAP PO SCH ×2 (09:14→20:49)
[2017-04-06] MEDS: POLYETHYLENE GLYCOL 3350 17 GM PKT PO SCH (09:16)
[2017-04-06] MEDS: SENNOSIDES/DOCUSATE SODIUM TAB PO SCH ×2 (09:16→20:58)
[2017-04-06] MEDS: NS 1,000 ML IV SCH (09:22)
[2017-04-06] MEDS ORDERED: CALCIUM GLUCONATE 50 ML IV ONE (11:00)
[2017-04-06] MEDS ORDERED: K PHOS 10 MMOL in D5W 250 ML IV ONE (12:00)
[2017-04-06] MEDS: ONDANSETRON 4 MG/2 ML VIAL IVP PRN (12:26)
--- NOTE | 2017-04-06 16:34 | HOSPPROG ---
Hospitalist Progress Note Assessment/Plan: * Severe gastroparesis s/p J-tube -starting tube feeds -watch for refeeding syndrome * Ileus -resolved * Aspiration PNA after PEG placement -IV Zosyn - change to PO abx * Severe protein calorie malnutrition -TPN until TF established * s/p acute respiratory failure * Somnolence - resolved -DC Xanax * E coli UTI - s/p macrobid * TBI/seizure disorder -Keppra * Bipolar -Seroquel, Depakote * PUD s/p Billroth II with Kaleb en Y -PPI -s/p H pylori tx * Tobacco/THC dependence -nicotine patch Subjective: Tolerating TF mostly, had a little nausea,but now TF resumed Objective: Vital Signs Temp Pulse Resp BP Pulse Ox 36.8 C 80 14 102/74 95 04/06/17 15:04 04/06/17 15:04 04/06/17 15:04 04/06/17 15:04 04/06/17 15:04 Laboratory Results 04/06/17 05:40 04/06/17 06:25 04/05/17 04/06/17 04/07/17 05:59 05:59 05:59 Intake Total 1460 3207 Output Total 600 3600 1050 Balance 860 -393 -1050 PT 13.6 SEC (12.0-15.0) 04/06/17 05:40 INR 1.02 (0.83-1.16) 04/06/17 05:40 - Physical Exam Constitutional: no apparent distress, appears nourished, not in pain Cardiovascular: regular rate and rhythym, no murmur, rub, or gallop Respiratory: no respiratory distress, no rales or rhonchi, clear to auscultation Gastrointestinal: normoactive bowel sounds, soft, non-tender abdomen, no palpable masses Skin: no rashes or abrasions, no fluctuance, no induration Neurologic: AAOx3, sensation intact bilaterally Psychiatric: interacting appropriately, not anxious, not encephalopathic, thought process linear ICD10 Worksheet Patient Problems: Problems Problem Status Onset Failure to thrive in adult Acute Bilateral pneumonia Acute Constipation Acute Hospital-acquired pneumonia Acute Hypoxia Acute Pneumonia Acute Seizure Acute Seizure disorder Acute Severe sepsis with septic shock Acute Urinary tract infection Acute Vomiting Acute
[2017-04-06] MEDS: AMOXICILLIN/CLAVULANATE POT 875/125 MG TAB PO SCH (20:50)
[2017-04-07] MEDS: oxyCODONE IR 5 MG TAB PO PRN ×6 (00:39→22:34)
[2017-04-07] MEDS: levETIRAcetam 500 MG TAB PO SCH ×3 (05:23→22:35)
[2017-04-07] MEDS: SUCRALFATE 1 GM/10 ML UDCUP PO SCH ×3 (05:48→17:06)
[2017-04-07 05:55] LABS: INR 0.98 (0.83-1.16); PROTIME(PATIENT) 13.2 SEC (12.0-15.0)
[2017-04-07 06:04] LABS: PLATELET COUNT 157 10^3/uL (150-400)
[2017-04-07] MEDS ORDERED: CALCIUM GLUCONATE 50 ML IV ONE (07:27)
--- NOTE | 2017-04-07 08:38 | WOCRNPDOC ---
WOCRN Advanced Assessment Note - Skin Integrity Problem, Advanced Assess Right Sacrum Pressure Injury Dressing Type: Allevyn Life Dressing Description: Clean/Dry, Intact Exudate Amount: Minimal Exudate Color: Yellow, Brown Exudate Characteristic(s): Thick Integumentary Issue Intervention: Visualized Under Dressing Loretta Wound Tissue: Blanching, Erythema Loretta Wound Swelling: Mild Wound Bed Color: [place], Red, Yellow Wound Bed Constitution: Red/[place] - Non Granular Tissue (70%), Loose Slough (30%) Wound Edges: Attached Pressure Injury Stage: Stage 3 Pressure Injury Present on Admit: No Skin Integrity Problem Comment: Wound appears to be enlarging even though patient was sleeping on her side when wound care rounded. Mechanically debrided about 30% of slough leaving 30% adhered and remaining. Will initiated honey to attempt to autolytically debride wound bed. Will recheck next week. There is no more evidence of DTI, it appears to have fully evolved. Right Lateral Sacrum Pressure Injury Dressing Type: Allevyn Life Dressing Description: Clean/Dry, Intact Exudate Amount: Minimal Exudate Color: Brown Exudate Characteristic(s): Thick Integumentary Issue Intervention: Visualized Under Dressing Loretta Wound Tissue: Blanching, Erythema Loretta Wound Swelling: None Wound Bed Constitution: Granulation Tissue (30%), Red/[place] - Non Granular Tissue (20%), Adhered Slough (50%) Wound Edges: Attached Pressure Injury Stage: Stage 3 Pressure Injury Present on Admit: No Skin Integrity Problem Comment: Mechanically debrided slough layer to patient tolerance. Wound appears to be enlarging even though patient was sleeping on her side when wound care rounded. Will initiated honey to attempt to autolytically debride wound bed. Will recheck next week. Thoracic Spine Pressure Injury Dressing Type: Allevyn Life Wound Bed Constitution: Healed Pressure Injury Stage: Stage 2 Skin Integrity Problem Comment: Report for all wounds given to JULIO Verma. She will redress wounds according to new orders. Wound care will follow sacral wounds next week.
[2017-04-07] MEDS: PREGABALIN 100 MG CAP PO SCH ×3 (08:55→22:34)
[2017-04-07] MEDS: AMOXICILLIN/CLAVULANATE POT 875/125 MG TAB PO SCH ×2 (08:55→22:33)
[2017-04-07] MEDS: DIVALPROEX NA 250 MG TAB PO SCH ×3 (08:55→17:05)
[2017-04-07] MEDS: DIVALPROEX NA 500 MG TAB PO SCH ×2 (08:55→17:06)
[2017-04-07] MEDS: NICOTINE 21 MG/24 HR PATCH TD SCH (08:56)
[2017-04-07] MEDS: PANTOPRAZOLE SODIUM 40 MG TAB PO SCH ×2 (08:56→22:35)
[2017-04-07] MEDS: SENNOSIDES/DOCUSATE SODIUM TAB PO SCH ×2 (08:56→19:39)
[2017-04-07] MEDS: QUEtiapine FUMARATE 300 MG TAB PO SCH ×3 (08:56→22:35)
[2017-04-07] MEDS: POLYETHYLENE GLYCOL 3350 17 GM PKT PO SCH (08:57)
[2017-04-07] MEDS: NS 1,000 ML IV SCH (09:33)
[2017-04-07] MEDS: TIOTROPIUM INHALER 18 MCG/DOSE 5 DOSE/MDI IH SCH (09:51)
[2017-04-07] MEDS ORDERED: NS 500 ML IV ONE (10:26)
[2017-04-07] MEDS: ALBUMIN 25% 100 ML IV SCH ×2 (11:31→17:05)
[2017-04-07] MEDS: LUBIPROSTONE 24 MCG CAP PO SCH ×2 (12:18→22:36)
--- NOTE | 2017-04-07 17:22 | HOSPPROG ---
Hospitalist Progress Note Assessment/Plan: * Severe gastroparesis s/p J-tube -starting tube feeds -watch for refeeding syndrome * Ileus -resolved * Aspiration PNA after PEG placement -PO Augmentin -possible focal cavitation on CXR - check CT chest * Severe protein calorie malnutrition * s/p acute respiratory failure * Somnolence - resolved -DC Xanax * E coli UTI - s/p macrobid * TBI/seizure disorder -Keppra * Bipolar -Seroquel, Depakote * PUD s/p Billroth II with Kaleb en Y -PPI -s/p H pylori tx * Tobacco/THC dependence -nicotine patch * Hypotension - frequent SBP 70s -? hypoalbuminemia - IV albumin for 24 hours and follow Subjective: No complaints Objective: Vital Signs Temp Pulse Resp BP Pulse Ox 36.7 C 69 16 102/69 95 04/07/17 15:19 04/07/17 15:19 04/07/17 15:19 04/07/17 15:19 04/07/17 15:19 Laboratory Results 04/07/17 05:20 04/07/17 05:20 04/06/17 04/07/17 04/08/17 05:59 05:59 05:59 Intake Total 3207 450 Output Total 3600 4100 800 Balance -393 -3650 -800 PT 13.2 SEC (12.0-15.0) 04/07/17 05:20 INR 0.98 (0.83-1.16) 04/07/17 05:20 CXR viewed, my personal interpretation is - air bubble Left base - unclear - Physical Exam Constitutional: no apparent distress, appears nourished, not in pain Cardiovascular: regular rate and rhythym, no murmur, rub, or gallop Respiratory: no respiratory distress, no rales or rhonchi, clear to auscultation Gastrointestinal: normoactive bowel sounds, soft, non-tender abdomen, no palpable masses Skin: no rashes or abrasions, no fluctuance, no induration Neurologic: AAOx3, sensation intact bilaterally Psychiatric: interacting appropriately, not anxious, not encephalopathic, thought process linear ICD10 Worksheet Patient Problems: Problems Problem Status Onset Failure to thrive in adult Acute Bilateral pneumonia Acute Constipation Acute Hospital-acquired pneumonia Acute Hypoxia Acute Pneumonia Acute Seizure Acute Seizure disorder Acute Severe sepsis with septic shock Acute Urinary tract infection Acute Vomiting Acute
[2017-04-07] MEDS ORDERED: IOPAMIDOL (ISOVUE 370) 100 ML BTL IV ONE (17:43)
[2017-04-08] MEDS: ALBUMIN 25% 100 ML IV SCH ×4 (00:50→17:58)
[2017-04-08] MEDS: SUCRALFATE 1 GM/10 ML UDCUP PO SCH ×5 (00:54→22:37)
[2017-04-08] MEDS: oxyCODONE IR 5 MG TAB PO PRN ×5 (03:13→19:50)
[2017-04-08] MEDS: levETIRAcetam 500 MG TAB PO SCH ×3 (06:09→22:38)
[2017-04-08 06:37] LABS: PLATELET COUNT 125 10^3/uL (150-400)
[2017-04-08] MEDS ORDERED: POTASSIUM CL 10 MEQ TAB PO ONE (08:04)
[2017-04-08] MEDS: TIOTROPIUM INHALER 18 MCG/DOSE 5 DOSE/MDI IH SCH (08:38)
[2017-04-08] MEDS: DIVALPROEX NA 250 MG TAB PO SCH ×3 (09:35→15:57)
[2017-04-08] MEDS: PANTOPRAZOLE SODIUM 40 MG TAB PO SCH ×2 (09:35→22:38)
[2017-04-08] MEDS: PREGABALIN 100 MG CAP PO SCH ×3 (09:36→22:37)
[2017-04-08] MEDS: DIVALPROEX NA 500 MG TAB PO SCH ×2 (09:36→15:57)
[2017-04-08] MEDS: QUEtiapine FUMARATE 300 MG TAB PO SCH ×3 (09:36→22:38)
[2017-04-08] MEDS: AMOXICILLIN/CLAVULANATE POT 875/125 MG TAB PO SCH ×2 (09:36→22:38)
[2017-04-08] MEDS: NICOTINE 21 MG/24 HR PATCH TD SCH (09:37)
[2017-04-08] MEDS: LUBIPROSTONE 24 MCG CAP PO SCH ×2 (09:41→22:42)
[2017-04-08] MEDS: POLYETHYLENE GLYCOL 3350 17 GM PKT PO SCH (09:48)
[2017-04-08] MEDS: SENNOSIDES/DOCUSATE SODIUM TAB PO SCH (09:48)
[2017-04-08 13:50] VITALS: RESP 16
--- NOTE | 2017-04-08 14:27 | ASMTCMCOM ---
CM Note CM Note Notes: Reviewed chart. Discussed Pt. w/ . states she hopes to d/c Pt. tomorrow if possible. Félix tried to reach Osmin at [facility] to update him. Osmin's voicemail message full. Called main line and let medical office receptionist know about Pt's likely return this weekend. Gentleman stated he would let staff know. Sent Allscripts update to include nutritional notes and a note letting them know Pt. may d/c this weekend. Plan for d/c to [facility] when ready. Date Signed: 04/08/2017 02:26 PM Electronically Signed By:Emily Weller LCSW
--- NOTE | 2017-04-08 15:53 | HOSPPROG ---
Hospitalist Progress Note Assessment/Plan: * Severe gastroparesis s/p J-tube -tolerating tube feeds * Ileus -resolved * Aspiration PNA after PEG placement -PO Augmentin - almost done 10 days * Severe protein calorie malnutrition * s/p acute respiratory failure * Somnolence - resolved -DC Xanax * E coli UTI - s/p macrobid * TBI/seizure disorder -Keppra * Bipolar -Seroquel, Depakote * PUD s/p Billroth II with Kaleb en Y -PPI -s/p H pylori tx * Tobacco/THC dependence -nicotine patch * Hypotension - frequent SBP 70s -suspect hypoalbuminemia - continue IV albumin * Anemia -suspect dilutional rather than bleed - follow Subjective: no complaints, SBP still 70s overnight Objective: Vital Signs Temp Pulse Resp BP Pulse Ox 37.1 C 66 16 90/67 L 90 L 04/08/17 15:01 04/08/17 15:01 04/08/17 15:01 04/08/17 15:01 04/08/17 15:01 Laboratory Results 04/08/17 13:06 04/08/17 05:55 04/07/17 04/08/17 04/09/17 05:59 05:59 05:59 Intake Total 450 1122 Output Total 4100 800 Balance -3650 322 PT 13.2 SEC (12.0-15.0) 04/07/17 05:20 INR 0.98 (0.83-1.16) 04/07/17 05:20 - Physical Exam Constitutional: no apparent distress, appears nourished, not in pain Cardiovascular: regular rate and rhythym, no murmur, rub, or gallop Respiratory: no respiratory distress, no rales or rhonchi, clear to auscultation Gastrointestinal: normoactive bowel sounds, soft, non-tender abdomen, no palpable masses Skin: no rashes or abrasions, no fluctuance, no induration Neurologic: AAOx3, sensation intact bilaterally Psychiatric: interacting appropriately, not anxious, not encephalopathic, thought process linear ICD10 Worksheet Patient Problems: Problems Problem Status Onset Failure to thrive in adult Acute Bilateral pneumonia Acute Constipation Acute Hospital-acquired pneumonia Acute Hypoxia Acute Pneumonia Acute Seizure Acute Seizure disorder Acute Severe sepsis with septic shock Acute Urinary tract infection Acute Vomiting Acute
[2017-04-08 23:36] VITALS: O2SAT 94
[2017-04-09] MEDS: ALBUMIN 25% 100 ML IV SCH ×3 (00:02→13:17)
[2017-04-09] MEDS: oxyCODONE IR 5 MG TAB PO PRN ×4 (00:17→13:25)
[2017-04-09] MEDS: SUCRALFATE 1 GM/10 ML UDCUP PO SCH ×2 (05:03→13:17)
[2017-04-09] MEDS: levETIRAcetam 500 MG TAB PO SCH ×2 (05:03→14:41)
[2017-04-09 06:14] LABS: PLATELET COUNT 121 10^3/uL (150-400)
[2017-04-09 08:08] VITALS: TEMP 98.1
[2017-04-09] MEDS: QUEtiapine FUMARATE 300 MG TAB PO SCH (08:31)
[2017-04-09] MEDS: DIVALPROEX NA 250 MG TAB PO SCH ×2 (08:31→13:17)
[2017-04-09] MEDS: AMOXICILLIN/CLAVULANATE POT 875/125 MG TAB PO SCH (08:31)
[2017-04-09] MEDS: PANTOPRAZOLE SODIUM 40 MG TAB PO SCH (08:31)
[2017-04-09] MEDS: LUBIPROSTONE 24 MCG CAP PO SCH (08:32)
[2017-04-09] MEDS: PREGABALIN 100 MG CAP PO SCH (08:32)
[2017-04-09] MEDS: DIVALPROEX NA 500 MG TAB PO SCH (08:32)
[2017-04-09] MEDS: NICOTINE 21 MG/24 HR PATCH TD SCH (08:33)
[2017-04-09] MEDS: POLYETHYLENE GLYCOL 3350 17 GM PKT PO SCH (08:33)
[2017-04-09] MEDS: TIOTROPIUM INHALER 18 MCG/DOSE 5 DOSE/MDI IH SCH (09:37)
--- NOTE | 2017-04-09 10:02 | PDIAF ---
- Diagnosis Diagnosis: gastroparesis s/p J tube Code Status: Full Code - Medication Management Discharge Medications: Medications to Continue on Transfer Acetaminophen [Tylenol 325mg (*)] 650 mg PO TID 03/25/17 [Last Taken Unknown] Divalproex [Depakote] 250 mg PO DAILY@08,12,16 03/25/17 [Last Taken 03/25/17 750mg AT 08] Divalproex [Depakote] 500 mg PO DAILY@08,16 03/25/17 [Last Taken 03/25/17 750 mg AT 08] Docusate Sodium [Colace 100 MG (*)] 100 mg PO BID 03/25/17 [Last Taken 03/25/17] Herbals/Supplements -Info Only 1 ea PO DAILY 03/25/17 [Last Taken Unknown] Lubiprostone [Amitiza 24 mcg (*)] 24 mcg PO BID 03/25/17 [Last Taken Unknown] Multivitamins [Multivitamin (*)] 1 each PO DAILY 03/25/17 [Last Taken Unknown] Pantoprazole Sodium [Protonix 40mg (*)] 40 mg PO BID 03/25/17 [Last Taken Unknown] Pregabalin [LYRICA] 200 mg PO TID 03/25/17 [Last Taken 03/25/17] QUEtiapine FUMARATE [Seroquel 300mg (*)] 300 mg PO TID 03/25/17 [Last Taken 08/05] Sucralfate [Carafate 1gm/10ml Oral Liquid (*)] 1 gm PO QID PRN 03/25/17 [Last Taken Unknown] Tiotropium Inhaler [Spiriva Handihaler] 90 mcg IH DAILY 03/25/17 [Last Taken 08/05] levETIRAcetam [Keppra 500 mg (*)] 500 mg PO TID 03/25/17 [Last Taken 03/25/17] rOPINIRole HCL [Requip 2mg (*)] 2 mg PO HS 03/25/17 [Last Taken 03/24/17] oxyCODONE HCL/ACETAMINOPHEN [Percocet 5-325 mg Tablet] 1 each PO Q4 PRN #20 tablet 04/09/17 [Last Taken Unknown] Discharge Medications: Refer to the Discharge Home Medication list for PRN reason. - Orders Services needed: Physical Therapy, Occupational Therapy Isolation Type: None Diet Recommendation: low fiber, other (frequent small volume meals for comfort only) Tube feeding: J tube feeds per dietary Additional: STOP PERCOSET AFTER 3 DAYS - for post-operative J tube pain - Follow Up Care Current Providers and Referrals: Patient,NotPresent [Unknown] - As per Instructions
[2017-04-09 11:13] VITALS: BP 83/54; PULSE 75
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
--- NOTE | 2017-04-09 19:26 | GDS ---
[f rep st] DISCHARGE SUMMARY DISCHARGE DIAGNOSES: 1. Severe idiopathic gastroparesis, status post J-tube. 2. Ileus. 3. Aspiration pneumonia. 4. Acute respiratory failure. 5. Severe protein-calorie malnutrition. 6. Escherichia coli urinary tract infection. 7. Traumatic brain injury and seizure disorder. 8. Bipolar. 9. Peptic ulcer disease, status post Billroth II with Kaleb-en-Y. 10. Tobacco and marijuana dependence. 11. Hypotension. 12. Anemia. HISTORY: The patient is a 46-year-old female with a long-standing history of severe gastroparesis, w dkh has been worked up extensively as an outpatient by Gastroenterology. She lives at [facility]. She was sent to the hospital due to ongoing weight loss and severe protein calorie malnut rition. She was seen here in consultation with Gastroenterology. The decision was made to move [facility] with a J-tube. She initially got a G-tube. However, after G-tube placement, she developed sever e aspiration, including aspiration pneumonia, requiring a transfer to the ICU. Eventually her G-tube was transition to a J-tube, and she is tolerating tube feeds through the J-tube without difficulty. She received 10 days of antibiotics for her aspiration pneumonia while she was an inpatient. Does n ot need any further antibiotics post discharge. At the time of discharge, she is tolerating tube fee ds, and an anticipated to continue to improve her nutritional status. DISCHARGE MEDICATIONS: Please see computerized record for full detailed list. New medications none. ADDITIONAL DISCHARGE INSTRUCTIONS: 1. J-tube feedings per dietary. 2. She may continue to eat a low fiber, low quantity diet by mouth for comfort only. 3. Ongoing PT/OT at [place] upon discharge. Greater than 30 minutes of time was spent arranging this discharge. The patient was seen and examine d by me on the day of discharge. /[id number]/MODL
== END 2017-04-09 15:25 | DRG 391 ==
LOC: EDUNIT# → F3E 15:14 → OBSVTOIN 03-26 12:30 → F3E 03-30 12:24 → F2N 03-30 13:50 → F3E 04-01 18:11
PROVIDERS: ADMIT Internal Medicine; ATTEND Internal Medicine
PROC: 0DB98ZX Excision of Duodenum, Via Natural or Artificial Opening Endoscopic, Diagnostic (ICD-10-PCS; principal; 2017-03-28 16:45)
PROC: 0DB68ZX Excision of Stomach, Via Natural or Artificial Opening Endoscopic, Diagnostic (ICD-10-PCS; principal; 2017-03-28 16:45)
PROC: 02HV33Z Insertion of Infusion Device into Superior Vena Cava, Percutaneous Approach (ICD-10-PCS; 2017-03-29)
PROC: 0DH63UZ Insertion of Feeding Device into Stomach, Percutaneous Approach (ICD-10-PCS; 2017-03-30)
PROC: 0DHA3UZ Insertion of Feeding Device into Jejunum, Percutaneous Approach (ICD-10-PCS; 2017-04-04)
DX: K31.84 Gastroparesis (principal); R62.7 Adult failure to thrive; K56.7 Ileus, unspecified; J69.0 Pneumonitis due to inhalation of food and vomit; J96.00 Acute respiratory failure, unspecified whether with hypoxia or hypercapnia; E43 Unspecified severe protein-calorie malnutrition; N39.0 Urinary tract infection, site not specified; B96.20 Unspecified Escherichia coli [E. coli] as the cause of diseases classified elsewhere; L89.153 Pressure ulcer of sacral region, stage 3; L89.892 Pressure ulcer of other site, stage 2; D63.8 Anemia in other chronic diseases classified elsewhere; F31.9 Bipolar disorder, unspecified; K21.9 Gastro-esophageal reflux disease without esophagitis; F12.10 Cannabis abuse, uncomplicated; F17.210 Nicotine dependence, cigarettes, uncomplicated; Z68.1 Body mass index [BMI] 19.9 or less, adult; Z87.820 Personal history of traumatic brain injury; Z87.19 Personal history of other diseases of the digestive system; Z87.442 Personal history of urinary calculi
CPT/HCPCS: 82607-90; 96374; 97110-GP; 97116-GP; 97161-GP; 97166-GO; 97530-GO; 97530-GP; C1729; C1751; C1758; C1769; G0378; J0610; J0696; J1170; J1364; J1610; J1644; J1650; J1885; J1953; J2250; J2370; J2405; J2543; J2550; J2704; J3010; P9041; P9047; Q9967

== ENCOUNTER 2017-04-12 17:53 | Emergency (ER) | payer MEDICAID ==
--- NOTE | 2017-04-12 18:07 | EDPHY ---
H & P Time Seen by Provider: 04/12/17 18:06 HPI/ROS: CHIEF COMPLAINT: J-tube malfunction HISTORY OF PRESENT ILLNESS: The patient presents to the emergency department with a reported malfunctioning J-tube. The patient was recently in the hospital with aspiration pneumonia. During that hospitalization her G-tube was converted to a J-tube. She is receiving TPN via this apparatus. The patient lives chronically at [place]. She continues to complain of global weakness and generalized malaise. REVIEW OF SYSTEMS: A comprehensive 10 point review of systems is otherwise negative aside from elements mentioned in the history of present illness. Source: Patient Exam Limitations: No limitations - Medical/Surgical History Hx Asthma: No Hx Chronic Respiratory Disease: No Hx Diabetes: No Hx Cardiac Disease: No Hx Renal Disease: No Hx Cirrhosis: No Hx Alcoholism: No Hx HIV/AIDS: No Hx Splenectomy or Spleen Trauma: No Other PMH: epilepsy-2012; depression, gerd, migraines, gastric ulcer status post resection, anxiety, kidney stones, anemia;restless legs;S/P Norah;S/P Appy - Social History Smoking Status: Current every day smoker - Physical Exam Exam: General Appearance: Deconditioned thin female, no acute distress Eyes: Pupils equal and round no pallor or injection ENT, Mouth: Mucous membranes moist Respiratory: There are no retractions, lungs are clear to auscultation Cardiovascular: Regular rate and rhythm Gastrointestinal: Normal bowel sounds noted, no focal tenderness Neurological: Chronic weakness Skin: Warm and dry, no rashes Musculoskeletal: Neck is supple nontender Extremities: symmetrical, full range of motion Constitutional: Initial Vital Signs Temperature (C) 36.8 C 04/12/17 18:09 Heart Rate 88 04/12/17 18:09 Respiratory Rate 18 04/12/17 18:09 Blood Pressure 89/58 L 04/12/17 18:09 O2 Sat (%) 95 04/12/17 18:09 O2 Delivery Mode Room Air O2 (L/minute) 4 Allergies/Adverse Reactions: heparin Allergy (Verified 04/12/17 18:11) affects my platelets iodine Allergy (Verified 04/12/17 18:11) oral contrast Allergy (Uncoded 04/12/17 18:11) Home Medications: Medication Instructions Recorded Acetaminophen [Tylenol 325mg (*)] 650 mg PO TID 03/25/17 Divalproex [Depakote] 250 mg PO DAILY@08,12,16 03/25/17 Divalproex [Depakote] 500 mg PO DAILY@08,16 03/25/17 Docusate Sodium [Colace 100 MG (*)] 100 mg PO BID 03/25/17 Herbals/Supplements -Info Only 1 ea PO DAILY 03/25/17 Lubiprostone [Amitiza 24 mcg (*)] 24 mcg PO BID 03/25/17 Multivitamins [Multivitamin (*)] 1 each PO DAILY 03/25/17 Pantoprazole Sodium [Protonix 40mg 40 mg PO BID 03/25/17 (*)] Pregabalin [LYRICA] 200 mg PO TID 03/25/17 QUEtiapine FUMARATE [Seroquel 300 mg PO TID 03/25/17 300mg (*)] Sucralfate [Carafate 1gm/10ml Oral 1 gm PO QID PRN 03/25/17 Liquid (*)] Tiotropium Inhaler [Spiriva 90 mcg IH DAILY 03/25/17 Handihaler] levETIRAcetam [Keppra 500 mg (*)] 500 mg PO TID 03/25/17 rOPINIRole HCL [Requip 2mg (*)] 2 mg PO HS 03/25/17 oxyCODONE HCL/ACETAMINOPHEN 1 each PO Q4 PRN #20 tablet 04/09/17 [Percocet 5-325 mg Tablet] Medical Decision Making - Diagnostics EKG Interpretation: EKG: Complete interpretation has been separately recorded in the [employer] archive. Summary impression: Sinus rhythm, rate 85 ED Course/Re-evaluation: The patient presents to the ED with a J-tube malfunction. We were able to flush her J-tube in and is now working. The patient has complaints of chronic pain following the placement of her J-tube. I find her abdominal exam to be benign. I do not feel that further workup is indicated. The patient will be discharged back to [place] for ongoing care. The patient was requesting narcotic medications in the emergency department. It appears that this medication was recently tapered per the hospitalist. She is noted to have chronic anemia. Her Depakote level is therapeutic. Her electrolytes are within normal limits. The patient did have mild hypotension in the emergency department however in reviewing her records this is a fairly chronic finding for the patient. The patient will be discharged back to [facility] at 9:00 p.m.. Differential Diagnosis: Differential diagnosis considered includes J-tube malfunction, dehydration, worsening anemia, subtherapeutic anticonvulsant level, renal failure - Data Points Laboratory Results: Laboratory Results 04/12/17 19:42 04/12/17 19:42 04/12/17 04/12/17 19:42 19:42 WBC 7.79 10^3/uL 10^3/uL (3.80-9.50) RBC 2.47 10^6/uL L 10^6/uL (4.18-5.33) Hgb 8.1 g/dL L g/dL (12.6-16.3) Hct 24.3 % L % (38.0-47.0) MCV 98.4 fL fL (81.5-99.8) MCH 32.8 pg pg (27.9-34.1) MCHC 33.3 g/dL g/dL (32.4-36.7) RDW 15.3 % H % (11.5-15.2) Plt Count 149 10^3/uL L 10^3/uL (150-400) MPV 10.2 fL fL (8.7-11.7) Neut % (Auto) 84.3 % H % (39.3-74.2) Lymph % (Auto) 6.8 % L % (15.0-45.0) [place] % (Auto) 7.7 % % (4.5-13.0) Eos % (Auto) 0.0 % L % (0.6-7.6) Baso % (Auto) 0.3 % % (0.3-1.7) Nucleat RBC Rel Count 0.0 % % (0.0-0.2) Absolute Neuts (auto) 6.57 10^3/uL H 10^3/uL (1.70-6.50) Absolute Lymphs (auto) 0.53 10^3/uL L 10^3/uL (1.00-3.00) Absolute Monos (auto) 0.60 10^3/uL 10^3/uL (0.30-0.80) Absolute Eos (auto) 0.00 10^3/uL L 10^3/uL (0.03-0.40) Absolute Basos (auto) 0.02 10^3/uL 10^3/uL (0.02-0.10) Absolute Nucleated RBC 0.00 10^3/uL 10^3/uL (0-0.01) Immature Gran % 0.9 % % (0.0-1.1) Immature Gran # 0.07 10^3/uL 10^3/uL (0.00-0.10) Sodium 141 mEq/L mEq/L (135-145) Potassium 3.5 mEq/L mEq/L (3.5-5.2) Chloride 104 mEq/L mEq/L (97-110) Carbon Dioxide 26 mEq/l mEq/l (22-31) Anion Gap 11 mEq/L mEq/L (8-16) BUN 20 mg/dL mg/dL (7-23) Creatinine 0.5 mg/dL L mg/dL (0.6-1.0) Estimated GFR > 60 Glucose 147 mg/dL H mg/dL (70-100) Calcium 8.4 mg/dL L mg/dL (8.5-10.4) Valproic Acid 114.9 mcg/mL mcg/mL (50.0-150.0) Medications Given: Discontinued Medications Sodium Chloride (Ns) 1,000 mls @ 0 mls/hr IV EDNOW ONE; Wide Open PRN Reason: Protocol Stop: 04/12/17 19:36 Last Admin: 04/12/17 19:44 Dose: 1,000 mls Sodium Chloride (Ns) 1,000 mls @ 0 mls/hr IV EDNOW ONE; Wide Open PRN Reason: Protocol Stop: 04/12/17 19:36 Last Admin: 04/12/17 19:44 Dose: 1,000 mls Oxycodone HCl (Oxycodone Ir) 10 mg PO EDNOW ONE Stop: 04/12/17 19:01 Last Admin: 04/12/17 19:02 Dose: 10 mg Promethazine HCl (Phenergan) 12.5 mg IVP ONCE ONE Stop: 04/12/17 19:57 Last Admin: 04/12/17 19:57 Dose: 12.5 mg Departure - Departure Disposition: Home, Routine, Self-Care Clinical Impression: Malfunctioning jejunostomy tube Condition: Good Instructions: How to Use and Care for Your PEG Tube (ED)
[2017-04-12 18:11] VITALS: TEMP 98.2
--- NOTE | 2017-04-12 18:22 | CPEKG ---
Heart Rate: 85 RR Interval: 706 P-R Interval: 156 QRSD Interval: 92 QT Interval: 372 QTC Interval: 443 P [place]: 60 QRS [place]: 58 T Wave [place]: 71 EKG Severity - BORDERLINE ECG - EKG Impression: SINUS RHYTHM EKG Impression: BORDERLINE T WAVE ABNORMALITIES Electronically Signed By: Yan Zavala 12-Apr-2017 20:15:24
[2017-04-12] MEDS ORDERED: oxyCODONE IR 5 MG TAB ONE (18:59)
[2017-04-12] MEDS ORDERED: oxyCODONE IR 5 MG TAB PO ONE (19:00)
[2017-04-12] MEDS ORDERED: NS 1,000 ML IV ONE ×2 (19:35)
[2017-04-12 19:50] LABS: PLATELET COUNT 149 10^3/uL (150-400)
[2017-04-12] MEDS ORDERED: PROMETHAZINE HCL 25 MG/ML INJ ONE (19:54)
[2017-04-12] MEDS ORDERED: PROMETHAZINE HCL 25 MG/ML INJ IVP ONE (19:56)
[2017-04-12 21:54] VITALS: BP 89/53; PULSE 69; RESP 14; O2SAT 95
== END 2017-04-12 21:51 | disposition home or self-care (01) ==
LOC: EDBD → EDUNIT#
DX: K94.13 Enterostomy malfunction (principal); F17.200 Nicotine dependence, unspecified, uncomplicated; E86.9 Volume depletion, unspecified
CPT/HCPCS: 96374; J2550

== ENCOUNTER 2017-05-05 16:19 | Emergency (ER) | payer MEDICAID ==
[2017-05-05 16:26] VITALS: RESP 16; TEMP 97.9
--- NOTE | 2017-05-05 16:55 | EDPHY ---
H & P Time Seen by Provider: 05/05/17 16:54 HPI/ROS: CHIEF COMPLAINT: Clogged J-tube. HISTORY OF PRESENT ILLNESS: 47 y/o female with history of bipolar disorder and severe gastroparesis presents to the emergency department with a reported clogged J-tube. She is followed by Dr. Wilkinson, work ticket distributor. The patient lives at [place]. Around 4:30am this morning, her abdomen at her J-tube site area became painful and the machine began beeping to notify that the rube was clogged. Staff tried to flush with water, Coca-Cola, and a special medication without success. Additionally, the patient states her J-tube site has been oozing recently and staff tried to contact Dr. Wilkinson earlier in the week to discuss antibiotics. Persistent abdominal pain, mild, throughout the day. No fever, vomiting, diarrhea, or other associated symptoms. REVIEW OF SYSTEMS: A 10 point review of systems was performed and is negative with the exception of the elements mentioned in the history of present illness. Past Medical/Surgical History: Epilepsy GERD Gastric ulcer s/p resection Gastroparesis Cholecystectomy Migraines Anxiety Depression History of kidney stones Anemia Social History: Single. Lives at [place]. Daily tobacco use. Smoking Status: Current every day smoker Physical Exam: General Appearance: Alert, pleasant Eyes: Pupils equal and round, no conjunctival pallor or injection ENT, Mouth: Mucous membranes moist Neck: Normal inspection Respiratory: Lungs are clear to auscultation Cardiovascular: Regular rate and rhythm Gastrointestinal: J-tube in place. No erythema or visible drainage. Mild tenderness around J-tube site. Neurological: A&O, nonfocal exam Skin: Warm and dry, no rash Extremities: Nontender, no pedal edema Psychiatric: Mood and affect normal Constitutional: Initial Vital Signs Temperature (C) 36.6 C 05/05/17 16:20 Heart Rate 87 05/05/17 16:20 Respiratory Rate 16 05/05/17 16:20 Blood Pressure 92/62 L 05/05/17 16:20 O2 Sat (%) 96 05/05/17 16:20 O2 Delivery Mode Room Air Allergies/Adverse Reactions: heparin Allergy (Verified 04/12/17 18:11) affects my platelets iodine Allergy (Verified 04/12/17 18:11) oral contrast Allergy (Uncoded 04/12/17 18:11) Home Medications: Medication Instructions Recorded Acetaminophen [Tylenol 325mg (*)] 650 mg PO TID 03/25/17 Divalproex [Depakote] 250 mg PO DAILY@08,12,16 03/25/17 Divalproex [Depakote] 500 mg PO DAILY@08,16 03/25/17 Docusate Sodium [Colace 100 MG (*)] 100 mg PO BID 03/25/17 Herbals/Supplements -Info Only 1 ea PO DAILY 03/25/17 Lubiprostone [Amitiza 24 mcg (*)] 24 mcg PO BID 03/25/17 Multivitamins [Multivitamin (*)] 1 each PO DAILY 03/25/17 Pantoprazole Sodium [Protonix 40mg 40 mg PO BID 03/25/17 (*)] Pregabalin [LYRICA] 200 mg PO TID 03/25/17 QUEtiapine FUMARATE [Seroquel 300 mg PO TID 03/25/17 300mg (*)] Sucralfate [Carafate 1gm/10ml Oral 1 gm PO QID PRN 03/25/17 Liquid (*)] Tiotropium Inhaler [Spiriva 90 mcg IH DAILY 03/25/17 Handihaler] levETIRAcetam [Keppra 500 mg (*)] 500 mg PO TID 03/25/17 rOPINIRole HCL [Requip 2mg (*)] 2 mg PO HS 03/25/17 oxyCODONE HCL/ACETAMINOPHEN 1 each PO Q4 PRN #20 tablet 04/09/17 [Percocet 5-325 mg Tablet] Medical Decision Making ED Course/Re-evaluation: This patient presents with a clogged J-tube. She is complaining of pain around the site, though there is no evidence infection. Morphine 4 mg IV and Zofran 4 mg IV given. The ED RN was unable to flush the J-tube. 17:[address] Little, interventional radiologist. Recommends consult with GI specialist semiconductor dies loader. 17:[address] Abdul. He will plan for J-tube replacement at 11am tomorrow. The patient is comfortable with this plan. Differential Diagnosis: Differential diagnosis includes though it is not limited to appendicitis, cholecystitis, diverticulitis, pyelonephritis, bowel perforation, small bowel obstruction. - Data Points Medications Given: Discontinued Medications Sodium Chloride (Ns) 1,000 mls @ 0 mls/hr IV ONCE ONE; Wide Open PRN Reason: Protocol Stop: 05/05/17 17:27 Last Admin: 05/05/17 17:44 Dose: 1,000 mls Morphine Sulfate (Morphine) 4 mg IVP EDNOW ONE Stop: 05/05/17 17:52 Last Admin: 05/05/17 17:56 Dose: 4 mg Morphine Sulfate (Morphine) 4 mg IVP EDNOW ONE Stop: 05/05/17 18:32 Last Admin: 05/05/17 18:52 Dose: 4 mg Ondansetron HCl (Zofran) 4 mg IVP EDNOW ONE Stop: 05/05/17 17:51 Last Admin: 05/05/17 17:56 Dose: 4 mg Promethazine HCl (Phenergan) 6.25 mg IVP ONCE ONE Stop: 05/05/17 19:25 Last Admin: 05/05/17 19:30 Dose: 6.25 mg Departure - Departure Disposition: Home, Routine, Self-Care Clinical Impression: Malfunctioning jejunostomy tube Condition: Good Instructions: Additional Information Additional Instructions: 1. Follow up with Dr. Abdul tomorrow at 11:00am for J-tube replacement. 2. Do not eat or drink anything after midnight tonight. 3. Go to outpatient registration tomorrow and staff will assist you. Referrals: STEVE ROMERO [Primary Care Provider] - As per Instructions Robert Abdul MD [Medical Doctor] - As per Instructions Report Scribed for: Mary Hernandez Report Scribed by: Amy Shields Date of Report: 05/05/17 Time of Report: 17:03 Physician Review and Approval Statement: 05/05/17 17:03 Portions of this note were transcribed by a medical aide. I personally performed a history, physical exam, medical decision making, and confirmed accuracy of information the transcribed note.
[2017-05-05] MEDS ORDERED: NS 1,000 ML IV ONE (17:26)
[2017-05-05] MEDS ORDERED: ONDANSETRON 4 MG/2 ML VIAL IVP ONE (17:50)
[2017-05-05 17:59] VITALS: O2SAT 92
[2017-05-05 19:12] VITALS: BP 92/61; PULSE 80
[2017-05-05] MEDS ORDERED: PROMETHAZINE HCL 25 MG/ML INJ IVP ONE (19:24)
== END 2017-05-05 19:53 | disposition home or self-care (01) ==
DX: K94.13 Enterostomy malfunction (principal); F17.200 Nicotine dependence, unspecified, uncomplicated; E86.9 Volume depletion, unspecified
CPT/HCPCS: 96374; J2270; J2405; J2550

== ENCOUNTER 2017-05-06 10:04 | Day surgery (SDC) | payer MEDICAID ==
[2017-05-06] MEDS ORDERED: LR 1,000 ML IV ONE (10:48)
[2017-05-06 10:54] VITALS: PULSE 78
[2017-05-06] MEDS ORDERED: PROMETHAZINE HCL 25 MG/ML INJ IVP ONE (10:59)
[2017-05-06] MEDS ORDERED: PROMETHAZINE HCL 25 MG/ML INJ ONE (10:59)
--- NOTE | 2017-05-06 12:44 | PDANEPAE ---
ANE Past Medical History - Cardiovascular History Hx Hypertension: No Hx Arrhythmias: No Hx Chest Pain: No Hx Coronary Artery / Peripheral Vascular Disease: No Hx CHF / Valvular Disease: No Hx Palpitations: No - Pulmonary History Hx COPD: No Hx Asthma/Reactive Airway Disease: No Hx Recent Upper Respiratory Infection: No Hx Oxygen in Use at Home: No Hx Sleep Apnea: No Pulmonary History Comment: Patient has had increasing O2 requirement while in the hospital. - Neurologic History Hx Cerebrovascular Accident: No Hx Seizures: Yes Hx Dementia: No - Endocrine History Hx Diabetes: No Hypothyroid: No Hyperthyroid: No Obesity: no - Renal History Hx Renal Disorders: No - Liver History Hx Hepatic Disorders: No - Neurological & Psychiatric Hx Hx Neurological and Psychiatric Disorders: Yes Neurological / Psychiatric History Comment: Seizure DO - not otherwise described. Documented psychiatric issues - Cancer History Hx Cancer: No - Congenital Disorder History Hx Congenital Disorders: No - GI History GERD: moderate Hx Gastrointestinal Disorders: Yes Gastrointestinal History Comment: Constant nausea and throws up food she ingests. - Chronic Pain History Chronic Pain: Yes ANE Review of Systems Review of Systems: - Exercise capacity METS (RN): 4 METS - Systems Gastrointestinal: Reports: vomitting ANE Patient History - Allergies Allergies/Adverse Reactions: heparin Allergy (Verified 05/06/17 10:56) affects my platelets iodine Allergy (Verified 05/06/17 10:56) oral contrast Allergy (Uncoded 04/12/17 18:11) - Home Medications Home Medications: Acetaminophen [Tylenol 325mg (*)] 650 mg PO TID 03/25/17 [Last Taken 05/05/17] Divalproex [Depakote] 250 mg PO DAILY@08,12,16 03/25/17 [Last Taken 05/05/17] Divalproex [Depakote] 500 mg PO DAILY@08,16 03/25/17 [Last Taken 05/05/17] Docusate Sodium [Colace 100 MG (*)] 100 mg PO BID 03/25/17 [Last Taken 05/01/17] Herbals/Supplements -Info Only 1 ea PO DAILY 03/25/17 [Last Taken 05/05/17] Lubiprostone [Amitiza 24 mcg (*)] 24 mcg PO BID 03/25/17 [Last Taken 05/05/17] Multivitamins [Multivitamin (*)] 1 each PO DAILY 03/25/17 [Last Taken 05/05/17] Pantoprazole Sodium [Protonix 40mg (*)] 40 mg PO BID 03/25/17 [Last Taken ] Pregabalin [LYRICA] 200 mg PO TID 03/25/17 [Last Taken 05/05/17] QUEtiapine FUMARATE [Seroquel 300mg (*)] 300 mg PO TID 03/25/17 [Last Taken ] Sucralfate [Carafate 1gm/10ml Oral Liquid (*)] 1 gm PO QID PRN 03/25/17 [Last Taken 05/05/17] Tiotropium Inhaler [Spiriva Handihaler] 90 mcg IH DAILY 03/25/17 [Last Taken ] levETIRAcetam [Keppra 500 mg (*)] 500 mg PO TID 03/25/17 [Last Taken 05/05/17] rOPINIRole HCL [Requip 2mg (*)] 2 mg PO HS 03/25/17 [Last Taken 05/05/17] - NPO status NPO Since - Liquids (Date): 05/06/17 NPO Since - Liquids (Time): 00:00 NPO Since - Solids (Date): 05/06/17 NPO Since - Solids (Time): 00:00 - Anes Hx Anes Hx: no prior problems - Smoking Hx Smoking Status: Current every day smoker - Alcohol Use Alcohol Use: Occasionally - Family Anes Hx Family Anes Hx: neg - N/A ANE Labs/Vital Signs - Vital Signs Blood Pressure: 94/65 Heart Rate: 78 Respiratory Rate: 15 O2 Sat (%): 94 ANE Physical Exam - Airway Neck exam: FROM Mallampati Score: Class 2 Mouth exam: normal dental/mouth exam - Pulmonary Pulmonary: no respiratory distress, no rales or rhonchi, clear to auscultation - Cardiovascular Cardiovascular: regular rate and rhythym, no murmur, rub, or gallop - ASA Status ASA Status: III ANE Anesthesia Plan Anesthesia Plan: MAC Total IV Anesthesia: Yes
[2017-05-06] MEDS ORDERED: PROPOFOL/EMULSION 500 MG/50 ML BOTTLE IV ONE (13:10)
--- NOTE | 2017-05-06 13:10 | PDGENHP ---
History & Physical Chief Complaint: CC: Gastroparesis. PEG with J tube. J tube clogged History of Present Illness: B2 gastrectomy with gastroparesis. PEG with J tube, J tube place in 04/07. Clogged. Presents for exchange. Pertinent Past, Social, Family History: negative, noncontributory Relevant Physical Exam: Lungs Clear. Cardiac normal s1 s2
[2017-05-06] MEDS ORDERED: PROMETHAZINE HCL 25 MG/ML INJ IVP PRN (13:27)
[2017-05-06] MEDS ORDERED: NALOXONE HCL 0.4 MG/ML INJ IVP PRN (13:27)
[2017-05-06] MEDS ORDERED: LR 500 ML IV PRN (13:27)
[2017-05-06] MEDS ORDERED: LIDOCAINE 2% 5 ML SDV ONE (13:31)
--- NOTE | 2017-05-06 13:47 | GIREPORT ---
[facility] - Endoscopy Department Patient Name: Rosalba Tucker Procedure Date: 05/06/2017 12:25 PM Patient Type: Outpatient Attending / ER Physician: Robert Abdul MD Procedure: Upper GI endoscopy Indications: Exchange PEG-J tube due to clogged gastrostomy tube Providers: Robert Abdul MD Medicines: See the other procedure note for documentation of the administered medications Complications: No immediate complications. Description of Procedure: After obtaining informed consent, the endoscope was passed under direct vision. Throughout the procedure, the patient's blood pressure, pulse, and oxygen saturations were monitored continuously. The Enteroscope was introduced through the mouth, and advanced to the operative stoma of duodenum. The upper GI endoscopy was accomplished without difficulty. T he patient tolerated the procedure well. Findings: The examined esophagus was normal. Evidence of a patent Billroth II gastrojejunostomy was found. The gastrojejunal anastomosis was characterized by healthy appearing mucosa . This was traversed. The efferent limb was examined. The afferent limb w as examined. Previous;y placed PEG/J extension was clogged and removed. An 8 samoan CORPAK was placed through PEG tube. Under endoscopic guidance, t he tube was advanced into the jejunum, efferent limb. Estimated Blood Loss: Estimated blood loss: none. Post Op Diagnosis: - Normal esophagus. - Patent Billroth II gastrojejunostomy was found, characterized by heal thy appearing mucosa. - An 8 samoan [place], jejunal tube was placed through the PEG tube and passed into the efferent limb. Recommendation: - Patient has a contact number available for emergencies. The signs and symptoms of potential delayed complications were discussed with the pat ient. Return to normal activities tomorrow. Written discharge instructions we re provided to the patient. - Continue present medications. - Resume TF - Thank you for allowing me to participate in the care of your patient. Attending Participation: I personally performed the entire procedure. Robert Abdul MD Robert Abdul MD 05/06/2017 1:47:21 PM This report has been signed electronicallyStorly Abdul MD Number of Addenda: 0 Note Initiated On: 05/06/2017 12:25 PM [email or web address]
[2017-05-06 13:58] VITALS: TEMP 98.6
[2017-05-06] MEDS: fentaNYL 100 MCG/2 ML INJ IVP PRN ×2 (14:03→14:13)
[2017-05-06] MEDS ORDERED: fentaNYL 100 MCG/2 ML INJ ONE (14:03)
[2017-05-06 14:14] VITALS: RESP 16
--- NOTE | 2017-05-06 14:39 | POSTANESTH ---
Post Anesthetic Evaluation Cardiovascular Status: Normal, Stable Respiratory Status: Normal, Stable Level of Consciousness/Mental Status: Can Participate in Eval Pain Control: Adequate, Prn Tx Ordered Nausea/Vomiting Control: Adequate, Prn Tx Ordered Complications Possibly Related to Anesthesia: None Noted
[2017-05-06 14:54] VITALS: BP 78/55; O2SAT 89
== END 2017-05-06 15:10 ==
LOC: FSGY 10:04
PROVIDERS: ATTEND Internal Medicine Gastroenterology
PROC: 0DH63UZ Insertion of Feeding Device into Stomach, Percutaneous Approach (ICD-10-PCS; principal; 2017-05-06 13:00)
PROC: 0DP64UZ Removal of Feeding Device from Stomach, Percutaneous Endoscopic Approach (ICD-10-PCS; principal; 2017-05-06 13:00)
DX: K94.29 Other complications of gastrostomy (principal); K31.84 Gastroparesis; Z98.0 Intestinal bypass and anastomosis status
CPT/HCPCS: J2550; J2704; J3010

== ENCOUNTER 2017-05-06 19:12 | Emergency (ER) | payer MEDICAID ==
--- NOTE | 2017-05-06 19:18 | EDPHY ---
HPI/HX/ROS/PE/MDM Narrative: CHIEF COMPLAINT: J-tube displacement HPI: This patient is a 47 year old female with history of severe gastroparesis arriving for evaluation of a displaced J-tube. She was evaluated last night in this emergency department for a clogged J-tube and followed up with Dr. Abdul , mushroom spawn maker, this morning to replace it. Replacement jejunal tube was passed through her PEG tube, and she was discharged back to [place] assisted living in good condition. This evening, she was eating spaghetti for dinner and the sauce was too spicy for her and she vomited. Her J-tube became during this and now protrudes from her mouth. She complains of discomfort due to this as well as discomfort around her PEG site. No fever, diarrhea, or other associated symptoms. REVIEW OF SYSTEMS: Aside from elements discussed in the HPI, a comprehensive 10-point review of systems was reviewed and is negative. PMH: Epilepsy. GERD. Gastric ulcer s/p resection. Gastroparesis. Cholecystectomy. Migraines. Anxiety. Depression. History of kidney stones. Anemia. SOCIAL HISTORY: Lives at [place]. Single. Daily tobacco use. PHYSICAL EXAM: General:Patient is alert, in no acute distress. ENT:Eyes are normal to inspection. ENT inspection normal. Neck: Normal inspection. Full range of motion. Respiratory:No respiratory distress. Breath sounds normal bilaterally. Cardiovascular: Regular rate and rhythm. Strong peripheral pulses. Normal cap refill. Abdomen: G-tube in place. J-tube within G-tube, currently protruding from the patient's mouth. Back: Normal to inspection. No tenderness to palpation. Skin: Normal color. No rash. Warm and dry. Extremities: Normal appearance. Full range of motion. Neuro: Oriented x3. Normal motor function. Normal sensory function. ED Course: 19:17 Assessed patient. Removed J-tube as directed by Dr. Armstrogn, mushroom spawn maker, which was easily removable, with no complications. I spoke with Dr. Armstrong prior to this patient's arrival. Plan for imaging of small bowel feeding tube with fluoroscopy. Patient is allergic to oral contrast. She states she has had scans in the past with Benadryl for symptom management. Plan to consult with GI. 19:[address] Armstrong, mushroom spawn maker. No imaging is required at this time. He is comfortable with outpatient followup for this patient. Plan to discharge back to [place] in good condition. Plan to administer 5/ 325 PO Percocet for pain relief. Per Dr. Armstrong, the patient may continue to use her G-tube as usual. Follow up and return precautions discussed. She is comfortable with this plan. - Data Points Medications Given: Discontinued Medications Oxycodone/Acetaminophen (Percocet 5/325) 1 tab PO EDNOW ONE Stop: 05/06/17 20:15 Last Admin: 05/06/17 20:31 Dose: 1 tab General Initial Vital Signs: Initial Vital Signs Temperature (C) 36.8 C 05/06/17 19:21 Heart Rate 98 05/06/17 19:21 Respiratory Rate 16 05/06/17 19:21 Blood Pressure 98/62 L 05/06/17 19:21 O2 Sat (%) 92 05/06/17 19:21 O2 Delivery Mode Room Air Allergies/Adverse Reactions: heparin Allergy (Verified 05/06/17 19:22) affects my platelets iodine Allergy (Verified 05/06/17 19:22) oral contrast Allergy (Uncoded 05/06/17 19:22) Home Medications: Medication Instructions Recorded Acetaminophen [Tylenol 325mg (*)] 650 mg PO TID 03/25/17 Divalproex [Depakote] 250 mg PO DAILY@08,12,16 03/25/17 Divalproex [Depakote] 500 mg PO DAILY@08,16 03/25/17 Docusate Sodium [Colace 100 MG (*)] 100 mg PO BID 03/25/17 Herbals/Supplements -Info Only 1 ea PO DAILY 03/25/17 Lubiprostone [Amitiza 24 mcg (*)] 24 mcg PO BID 03/25/17 Multivitamins [Multivitamin (*)] 1 each PO DAILY 03/25/17 Pantoprazole Sodium [Protonix 40mg 40 mg PO BID 03/25/17 (*)] Pregabalin [LYRICA] 200 mg PO TID 03/25/17 QUEtiapine FUMARATE [Seroquel 300 mg PO TID 03/25/17 300mg (*)] Sucralfate [Carafate 1gm/10ml Oral 1 gm PO QID PRN 03/25/17 Liquid (*)] Tiotropium Inhaler [Spiriva 90 mcg IH DAILY 03/25/17 Handihaler] levETIRAcetam [Keppra 500 mg (*)] 500 mg PO TID 03/25/17 rOPINIRole HCL [Requip 2mg (*)] 2 mg PO HS 03/25/17 oxyCODONE HCL/ACETAMINOPHEN 1 each PO Q4 PRN #20 tablet 04/09/17 [Percocet 5-325 mg Tablet] Departure - Departure Disposition: Home, Routine, Self-Care Clinical Impression: Malfunctioning jejunostomy tube Condition: Good Instructions: Additional Information Additional Instructions: 1. Follow up with Dr. Armstrong for further evaluation. 2. You may continue to use the G-tube normally. 3. Return to the emergency department for fever, uncontrollable vomiting, increasing pain, or other worsening of condition. Referrals: Librado Armstrong MD [Medical Doctor] - As per Instructions Report Scribed for: Librado White Report Scribed by: Amy Shields Date of Report: 05/06/17 Time of Report: 20:39 Physician Review and Approval Statement: Portions of this note were transcribed by an ED scribe. I personally performed the history, physical exam, and medical decision making; and confirm the accuracy of the information in the transcribed note.
[2017-05-06 19:22] VITALS: TEMP 98.2
[2017-05-06] MEDS ORDERED: OXYCODONE/APAP 5/325 TAB PO ONE (20:14)
[2017-05-06 20:37] VITALS: BP 90/62; PULSE 77; RESP 15; O2SAT 91
== END 2017-05-06 20:36 | disposition home or self-care (01) ==
LOC: EDUNIT#
DX: K94.13 Enterostomy malfunction (principal)

== ENCOUNTER 2017-07-25 07:22 | Day surgery (SDC) | payer MEDICAID ==
[2017-07-25] MEDS ORDERED: LR 1,000 ML IV ONE (07:42)
--- NOTE | 2017-07-25 08:55 | PDANEPAE ---
ANE Past Medical History - Cardiovascular History Hx Hypertension: No Hx Arrhythmias: No Hx Chest Pain: No Hx Coronary Artery / Peripheral Vascular Disease: No Hx CHF / Valvular Disease: No Hx Palpitations: No - Pulmonary History Hx COPD: No Hx Asthma/Reactive Airway Disease: No Hx Recent Upper Respiratory Infection: No Hx Oxygen in Use at Home: No Hx Sleep Apnea: No Sleep Apnea Screening Result - Last Documented: Negative Pulmonary History Comment: RECURRENT PNEUMONIA - LAST IN MAY 2017 TXD & RESOLVED - Neurologic History Hx Cerebrovascular Accident: No Hx Seizures: Yes Hx Dementia: No Neurologic History Comment: LAST SEIZURE MAR 2017 - Endocrine History Hx Diabetes: No Hypothyroid: No Hyperthyroid: No Obesity: no - Renal History Hx Renal Disorders: No - Liver History Hx Hepatic Disorders: No - Neurological & Psychiatric Hx Hx Neurological and Psychiatric Disorders: Yes Neurological / Psychiatric History Comment: Seizure DO - not otherwise described. Documented psychiatric issues - Cancer History Hx Cancer: No - Congenital Disorder History Hx Congenital Disorders: No - GI History GERD: mild Hx Gastrointestinal Disorders: Yes Gastrointestinal History Comment: N & V OCCAS. NO FEEDING TUBE - Other Health History Other Health History: NEG - Chronic Pain History Chronic Pain: Yes ANE Review of Systems Review of Systems: - Exercise capacity METS (RN): 4 METS ANE Patient History - Allergies Allergies/Adverse Reactions: heparin Allergy (Verified 05/06/17 19:22) affects my platelets iodine Allergy (Verified 05/06/17 19:22) oral contrast Allergy (Uncoded 05/06/17 19:22) - Home Medications Home Medications: Acetaminophen [Tylenol 325mg (*)] 650 mg PO TID 03/25/17 [Last Taken 05/05/17] Divalproex [Depakote] 250 mg PO DAILY@08,12,16 03/25/17 [Last Taken 07/24/17] Divalproex [Depakote] 500 mg PO DAILY@08,16 03/25/17 [Last Taken 07/25/17] Docusate Sodium [Colace 100 MG (*)] 100 mg PO BID 03/25/17 [Last Taken 07/25/17] Herbals/Supplements -Info Only 1 ea PO DAILY 03/25/17 [Last Taken 07/25/17] Lubiprostone [Amitiza 24 mcg (*)] 24 mcg PO BID 03/25/17 [Last Taken 07/25/17] Multivitamins [Multivitamin (*)] 1 each PO DAILY 03/25/17 [Last Taken 07/25/17] Pregabalin [LYRICA] 200 mg PO TID 03/25/17 [Last Taken 07/25/17] QUEtiapine FUMARATE [Seroquel 300mg (*)] 300 mg PO TID 03/25/17 [Last Taken 10/05] Sucralfate [Carafate 1gm/10ml Oral Liquid (*)] 1 gm PO QID PRN 03/25/17 [Last Taken 07/25/17] Tiotropium Inhaler [Spiriva Handihaler] 90 mcg IH DAILY 03/25/17 [Last Taken 10/05] rOPINIRole HCL [Requip 2mg (*)] 2 mg PO HS 03/25/17 [Last Taken 07/24/17] Imitrex 07/20/17 [Last Taken 07/20/17] Omeprazole 07/20/17 [Last Taken Unknown] Ranitidine HCl 07/20/17 [Last Taken 07/25/17] - NPO status NPO Since - Liquids (Date): 07/25/17 NPO Since - Liquids (Time): 06:45 NPO Since - Solids (Date): 07/24/17 NPO Since - Solids (Time): 12:00 - Anes Hx Anes Hx: no prior problems - Smoking Hx Smoking Status: Current every day smoker - Family Anes Hx Family Anes Hx: neg - N/A ANE Labs/Vital Signs - Vital Signs Blood Pressure: 106/70 Heart Rate: 74 Respiratory Rate: 16 O2 Sat (%): 99 Height: 168.91 cm Weight: 48.444 kg ANE Physical Exam - Airway Neck exam: FROM Mallampati Score: Class 2 Mouth exam: dentures - Pulmonary Pulmonary: no respiratory distress, no rales or rhonchi, clear to auscultation - Cardiovascular Cardiovascular: regular rate and rhythym, no murmur, rub, or gallop - ASA Status ASA Status: III ANE Anesthesia Plan Anesthesia Plan: MAC Total IV Anesthesia: Yes
--- NOTE | 2017-07-25 09:02 | PDGENHP ---
History & Physical Chief Complaint: Iron deficiency History of Present Illness: 47 year old woman with iron deficieny anemia. Pertinent Past, Social, Family History: lives in hospital [facility] Relevant Physical Exam: Lungs clear. Cardiac normla S1 S2 Cardiorespiratory Assessment: Normal. Proceed with colonoscopy
[2017-07-25] MEDS ORDERED: PROPOFOL/EMULSION 500 MG/50 ML BOTTLE IV ONE (09:03)
[2017-07-25] MEDS ORDERED: fentaNYL 100 MCG/2 ML INJ ONE (09:03)
[2017-07-25] MEDS ORDERED: PROMETHAZINE HCL 25 MG/ML INJ ONE ×2 (09:06→10:10)
[2017-07-25] MEDS ORDERED: PROMETHAZINE HCL 25 MG/ML INJ IVP PRN (09:08)
[2017-07-25] MEDS ORDERED: ONDANSETRON 4 MG/2 ML VIAL IVP PRN (09:25)
[2017-07-25] MEDS ORDERED: NALOXONE HCL 0.4 MG/ML INJ IVP PRN (09:25)
[2017-07-25] MEDS ORDERED: LR 500 ML IV PRN (09:25)
[2017-07-25] MEDS ORDERED: PHENYLEPHRINE HCL 100 MCG/ML SYR IVP PRN (09:25)
[2017-07-25] MEDS ORDERED: epHEDrine SULFATE 10 MG/ML SYR IVP PRN (09:25)
--- NOTE | 2017-07-25 09:36 | POSTANESTH ---
Post Anesthetic Evaluation Cardiovascular Status: Similar to Pre-Op Cond Respiratory Status: Normal, Stable Level of Consciousness/Mental Status: Mildly Sleepy, Arousable Pain Control: Adequate, Prn Tx Ordered Nausea/Vomiting Control: Adequate, Prn Tx Ordered Complications Possibly Related to Anesthesia: None Noted
--- NOTE | 2017-07-25 09:43 | GIREPORT ---
[facility] - Endoscopy Department Patient Name: Rosalba Tucker Procedure Date: 07/25/2017 8:19 AM Patient Type: Outpatient Attending / ER Physician: Robert Abdul MD Procedure: Colonoscopy Indications: Iron deficiency anemia Providers: Robert Abdul MD Medicines: Sedation Required Anesthesia Staff Assistance Complications: No immediate complications. Description of Procedure: After obtaining informed consent, the scope was passed under direct vis ion. Throughout the procedure, the patient's blood pressure, pulse, and oxyg en saturations were monitored continuously. The Colonoscope was introduced through the anus with the intention of advancing to the cecum. The scop e was advanced to the sigmoid colon before the procedure was aborted. Medicat ions were given. The colonoscopy was performed with difficulty due to unsatisfactory bowel prep. The patient tolerated the procedure well. Th e quality of the bowel preparation was inadequate. No anatomical landmark s were photographed. Findings: The colon (entire examined portion) appeared normal. aborted procedure due to prep. Estimated Blood Loss: Estimated blood loss: none. Post Op Diagnosis: - Preparation of the colon was inadequate. - The entire examined colon is normal, however poor prep. - No specimens collected. - Patient with iron deficiency anemia. Suspect malabsortion form prior gastric bypass surgery. Cannot exclude colonic source of chronic GI blo od loss. Recommendation: - Patient has a contact number available for emergencies. The signs and symptoms of potential delayed complications were discussed with the pat ient. Return to normal activities tomorrow. Written discharge instructions we re provided to the patient. - Resume previous diet. - Continue present medications. - Repeat colonoscopy because the bowel preparation was poor. - If paitent cannot prep would reocmmend BE. - Thank you for allowing me to participate in the care of your patient. Attending Participation: I personally performed the entire procedure. Robert Abdul MD Robert Abdul MD 07/25/2017 9:42:54 AM This report has been signed electronicallyStorly Abdul MD Number of Addenda: 0 Note Initiated On: 07/25/2017 8:19 AM Total Procedure Duration Time 0 hours 6 minutes 1 second [email or web address]
[2017-07-25 11:29] VITALS: BP 99/68
== END 2017-07-25 11:00 | disposition home or self-care (01) ==
LOC: FSGY 07:22
PROVIDERS: ATTEND Internal Medicine Gastroenterology
PROC: 0DJD8ZZ Inspection of Lower Intestinal Tract, Via Natural or Artificial Opening Endoscopic (ICD-10-PCS; principal; 2017-07-25 09:00)
DX: D50.9 Iron deficiency anemia, unspecified (principal)
CPT/HCPCS: J2550; J2704; J3010

== ENCOUNTER → 2017-11-09 | Outpatient (CLI) | payer MEDICAID | LOC: FIMAGING 09:30 | PROVIDERS: ATTEND Internal Medicine Geriatric Medicine | DX: R92.8 Other abnormal and inconclusive findings on diagnostic imaging of breast (principal) ==

== ENCOUNTER → 2017-11-23 | Outpatient (CLI) | payer MEDICAID | LOC: FIMAGING 08:38 | PROVIDERS: ATTEND Internal Medicine Gastroenterology | DX: D50.9 Iron deficiency anemia, unspecified (principal); R19.5 Other fecal abnormalities ==